=== PATIENT | male | born 1960 | race Caucasian/White ===

== ENCOUNTER → 2018-01-22 | Outpatient (CLI) | payer MEDICARE, MEDICAID ==
--- NOTE | 2018-01-22 15:45 | Diagnostic Imaging Report ---
Patient History: SOB and resp Ins. Technique: Two views of the chest. Comparison: 04/19/2008. FINDINGS: The lung volumes are large. No focal consolidation is seen. No large pleural effusion or pneumothorax is seen. The cardiomediastinal silhouette is normal in size and contour. No acute osseous abnormality is seen. There are degenerative changes in the left shoulder. IMPRESSION: Large lung volumes with no acute pulmonary abnormality seen. Dictated by: Dictated on workstation # [id number]
== END ==
LOC: RAD 13:03
PROVIDERS: ATTEND Family Medicine
DX: R06.02 Shortness of breath (principal)
CPT/HCPCS: 71046

== ENCOUNTER 2018-06-25 09:12 | Inpatient (IN) | payer MEDICARE, MEDICAID ==
[~2018-06-25] VITALS: Ht 175.3 cm; Wt 113.4 kg
[2018-06-25] VITALS (13 sets, daily range): BP systolic 85–152; BP diastolic 36–118
--- OUTSIDE RECORDS SUMMARY | 2018-06-25 09:16 | XMS REPORT | Continuity of Care Document ---
Author Organization Unknown Address Unknown Allergies Active Description Code Type Severity Reaction Onset Reported/Identified Relationship to Patient Clinical Status Yes CODEINE SULFATE UNKNOWN UNKNOWN Yes Codeine Drug Allergy 07/02/2011 Yes Codeine Drug Allergy N/A N/A 07/02/2011 Medications Medication Packaging Start Date Stop Date Route Dosage Sig COMBIVENT RESPIMAT MDI (COMBIVENT RESPIMAT) puff 01/22/2017 01/31/2017 TID&0600,1400,2200 ACETAMINOPHEN ORAL TABLET 325mg(Tylenol) MG 01/22/2017 02/01/2017 PRN EVERY 6 Hour POLYETHYLENE GLYCOL POWDER UD PWD (MIRALAX 17GM UNIT DOSE PAKS) gm 01/22/2017 02/21/2017 PRN Q3H IPRATROPIUM/ALBUTEROL INH SOLN (DUO-NEB INH SOLN) MLS 01/22/2017 01/29/2017 TID&0600,1100,1600,2100 HYDROCODONE/APAP 5MG/325MG TAB 5 MG/325MG (SY-TAB 5/325) TAB 01/22/2017 02/21/2017 PRN Q6H DIVALPROEX SPRINKLE CAP 125 MG (DEPAKOTE SPRINKLE) MG 01/22/2017 02/21/2017 PRN Q6H COMBIVENT RESPIMAT MDI (COMBIVENT RESPIMAT) puff 01/22/2017 02/21/2017 PRN QID ALUM/MAG/SIMETH 30CC LIQ (MYLANTA PLUS) cc 01/22/2017 02/21/2017 PRN Q4H MUPIROCIN OINT 2 % (BACTROBAN) Dose(s) 01/22/2017 02/21/2017 BID&0800,2000 GABAPENTIN CAP 100 MG (NEURONTIN) MG 01/22/2017 02/21/2017 TID&0800,1400,2000 BENZTROPINE TAB 0.5 MG (COGENTIN) MG 01/22/2017 02/21/2017 TID&0800,1400,2000 Artificial TEARS opht drops (TEARS for Dry Eyes) DROP 01/22/2017 02/01/2017 PRN Q2H LACTULOSE SYRUP LIQ 20 GM/30CC (CHRONULAC SYRUP) GM 01/22/2017 02/21/2017 BID&0800,2000 CLONAZEPAM TAB 1 MG (KLONOPIN) MG 01/22/2017 02/21/2017 BID&0800,2000 Risperidone oral Dissolvetab 3mg (Risperdal M) MG 01/22/2017 02/21/2017 BID&0800,2000 PROPRANOLOL TAB 10 MG (INDERAL) MG 01/22/2017 02/21/2017 TID&0800,1400,2000 MILK OF [place] ALONZOQ ml 01/22/2017 01/29/2017 PRN BID MELATONIN TAB 3 MG (MELATONIN) MG 01/22/2017 02/20/2017 QHS&2100 TRAZODONE TAB 50 MG (DESYREL) MG 02/21/2017 PRN QHS SENNA CONC/DOCUSATE TAB (SENOKOT S) TAB 01/22/2017 02/20/2017 QHS&2100 IPRATROPIUM/ALBUTEROL INH SOLN (DUO-NEB INH SOLN) MLS 01/23/2017 02/01/2017 TID&0630,1130,1630 ASA 81MG CHEWABLE TAB 81 MG (BABY ASPIRIN) MG 01/23/2017 02/21/2017 Daily&0900 NICOTINE PATCH PAT 14 MG (NICODERM) MG 01/23/2017 02/21/2017 Daily&0900 POLYETHYLENE GLYCOL POWDER UD PWD (MIRALAX 17GM UNIT DOSE PAKS) gm 01/23/2017 02/21/2017 Daily&0900 CYCLOBENZAPRINE TAB 10 MG (FLEXERIL) MG 01/23/2017 02/22/2017 PRN BID IPRATROPIUM/ALBUTEROL INH SOLN (DUO-NEB INH SOLN) MLS 01/23/2017 02/01/2017 TID&0600,1400,2200 OLANZAPINE DISSOLVABLE TAB 5 MG (ZYPREXA ZYDIS) MG 01/23/2017 02/22/2017 Q6H&0000,0600,1200,1800 OLANZAPINE IM VIAL INJ 10 MG/VIAL (ZYPREXA IM VIAL) MG 01/23/2017 02/22/2017 Q6H&0600,1200,1800,2359 BISACODYL SUPPOS SUP 10 MG (DULCOLAX SUPPOS) MG 01/25/2017 01/31/2017 PRN Daily OLANZAPINE DISSOLVABLE TAB 5 MG (ZYPREXA ZYDIS) MG 01/29/2017 02/08/2017 QID&0600,1200,1700,2200 IPRATROPIUM/ALBUTEROL INH SOLN (DUO-NEB INH SOLN) MLS 02/01/2017 02/08/2017 TID&0600,1100,1600,2100 Problems Date Dx Coded Attending Type Code Diagnosis Diagnosed By 07/14/2009 295.70 P SCHIZO AFFECTIVE 07/14/2009 SHENA HERNANDES DO 295.70 P SCHIZO AFFECTIVE 07/14/2009 295.70 P SCHIZO AFFECTIVE 07/14/2009 295.70 P SCHIZO AFFECTIVE 07/14/2009 295.70 P SCHIZO AFFECTIVE 07/14/2009 295.70 P SCHIZO AFFECTIVE 08/23/2009 295.10 P SCHIZO DISORG UNSPECIFIED 08/23/2009 V58.69 LONG-TERM ( CURRENT) USE OF OTHER MEDICATIONS 08/23/2009 SHENA HERNANDES DO 295.10 P SCHIZO DISORG UNSPECIFIED 08/23/2009 SHENA HERNANDES DO V58.69 LONG-TERM (CURRENT) USE OF OTHER MEDICATIONS 08/23/2009 295.10 P SCHIZO DISORG UNSPECIFIED 08/23/2009 V58.69 LONG-TERM ( CURRENT) USE OF OTHER MEDICATIONS 08/23/2009 295.10 P SCHIZO DISORG UNSPECIFIED 08/23/2009 V58.69 LONG-TERM ( CURRENT) USE OF OTHER MEDICATIONS 08/23/2009 295.10 P SCHIZO DISORG UNSPECIFIED 08/23/2009 V58.69 LONG-TERM ( CURRENT) USE OF OTHER MEDICATIONS 08/23/2009 295.10 P SCHIZO DISORG UNSPECIFIED 08/23/2009 V58.69 LONG-TERM ( CURRENT) USE OF OTHER MEDICATIONS 12/11/2009 296.40 MO BIPOLAR MANIC UNSPECIFIED 12/11/2009 SHENA HERNANDES DO 296.40 MO BIPOLAR MANIC UNSPECIFIED 12/11/2009 296.40 MO BIPOLAR MANIC UNSPECIFIED 12/11/2009 296.40 MO BIPOLAR MANIC UNSPECIFIED 12/11/2009 296.40 MO BIPOLAR MANIC UNSPECIFIED 12/11/2009 296.40 MO BIPOLAR MANIC UNSPECIFIED 08/30/2010 295.30 P SCHIZO PARANOID UNSPECIFIED 08/30/2010 SHENA HRENANDES DO 295.30 P SCHIZO PARANOID UNSPECIFIED 08/30/2010 295.30 P SCHIZO PARANOID UNSPECIFIED 08/30/2010 295.30 P SCHIZO PARANOID UNSPECIFIED 08/30/2010 295.30 P SCHIZO PARANOID UNSPECIFIED 08/30/2010 295.30 P SCHIZO PARANOID UNSPECIFIED 10/04/2010 295.60 P SCHIZO RESIDUAL UNSPECIFIED 10/04/2010 SHENA HERNANDES DO 295.60 P SCHIZO RESIDUAL UNSPECIFIED 10/04/2010 295.60 P SCHIZO RESIDUAL UNSPECIFIED 10/04/2010 295.60 P SCHIZO RESIDUAL UNSPECIFIED 10/04/2010 295.60 P SCHIZO RESIDUAL UNSPECIFIED 10/04/2010 295.60 P SCHIZO RESIDUAL UNSPECIFIED 11/13/2010 296.60 MO BIPOLAR I MIXED UNSPECIFIED 11/13/2010 SHENA HERNANDES DO 296.60 MO BIPOLAR I MIXED UNSPECIFIED 11/13/2010 296.60 MO BIPOLAR I MIXED UNSPECIFIED 11/13/2010 296.60 MO BIPOLAR I MIXED UNSPECIFIED 11/13/2010 296.60 MO BIPOLAR I MIXED UNSPECIFIED 11/13/2010 296.60 MO BIPOLAR I MIXED UNSPECIFIED 02/03/2017 MAURISIO KINSEY 295.60 02/03/2017 MAURISIO KINSEY 296.80 02/03/2017 MAURISIO KINSEY 300.00 02/03/2017 MAURISIO KINSEY 305.1 TOBACCO USE DISORDER 02/03/2017 MAURISIO KINSEY 401.0 MALIGNANT ESSENTIAL HYPERTENSION 02/03/2017 MAURISIO KINSEY 491.20 OBSTRUCTIVE CHRONIC BRONCHITIS, WITHOUT EXACERBATION 02/03/2017 MAURISIO KINSEY 564.00 02/03/2017 MAURISIO KINSEY 715.30 02/03/2017 MAURISIO KINSEY 781.0 ABNORMAL INVOLUNTARY MOVEMENTS 02/03/2017 MAURISIO KINSEY 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 02/03/2017 MAURISIO KINSEY F31.9 BIPOLAR DISORDER, UNSPECIFIED 02/03/2017 MAURISIO KINSEY F41.9 ANXIETY DISORDER, UNSPECIFIED 02/03/2017 MAURISIO KINSEY I10 ESSENTIAL (PRIMARY) HYPERTENSION 02/03/2017 MAURISIO KINSEY J44.9 CHRONIC OBSTRUCTIVE PULMONARY DISEASE, UNSPECIFIED 02/03/2017 MAURISIO KINSEY K59.09 OTHER CONSTIPATION 02/03/2017 MAURISIO KINSEY M19.90 UNSPECIFIED OSTEOARTHRITIS, UNSPECIFIED SITE 02/03/2017 MAURISIO KINSEY R25.1 TREMOR, UNSPECIFIED 02/03/2017 MAURISIO KINSEY Z72.0 TOBACCO USE 01/23/2018 GELLENDER DO, TANI Ley Ot R06.02 SHORTNESS OF BREATH 02/17/2018 GELLENDER DO, TANI Ley Ot R06.02 SHORTNESS OF BREATH 02/19/2018 GELLENDER DO, TANI Ley Ot R06.02 SHORTNESS OF BREATH Procedures Code Description [place] [address] EKG, TRACING (IN-HOUSE) 05/28/2012 Results Test Result Range Thyroid Stimulating Hormone - 01/23/17 05:10 TSH 1.40 mIU/mL 0.32-5.00 MRSA Screen - 01/23/17 05:10 FINAL CULTURE RESULTS MRSA Negative Nasal Culture Comprehensive Metabolic Panel - 01/24/17 07:44 Albumin 4.0 g/dL 3.6-5.1 ALP 93 U/L 35-130 ALT 16 U/L 6-45 Anion Gap 15 6-14 AST 31 U/L 2-40 BUN 16 mg/dL 5-25 Calcium 9.1 mg/dL 8.3-10.4 Chloride 106 mmol/L 95-114 CO2 23 mEq/L 22-33 Creat 1.06 mg/dL 0.50-1.50 eGFR 72 mL/min/1.73m2 >59 Globulin 3.5 g/dL 2.3-3.5 Glucose 198 mg/dL 70-110 Osmo 295 280-295 Potassium 4.3 mmol/L 3.5-5.3 Sodium 140 mmol/L 134-148 TBil 0.9 mg/dL 0.2-1.2 TP 7.5 g/dL 6.0-8.3 Urinalysis - 01/24/17 07:44 Icotest Negative Negative Urine Volume Urine Volume Sufficient (10mL) Urine Yeast No Yeast present Urine-Appearance Clear Clear Urine-Bacteria Negative Urine-Bilirubin 1+ Negative Urine-Blood Negative Negative Urine-Color Yellow Colorless-Lt. Yellow Urine-Glucose Negative Negative Urine-Ketones 1+ Negative Urine-Leukocytes Negative Negative Urine-Mucus 4+ Urine-Nitrite Negative Negative Urine-Other Urine Saved if Culture Needed (48hrs from time of collection) Urine-pH 5.5 5-8.5 Urine-Protein Negative Negative Urine-RBC Negative Urine-Specific [place] 1.025 1.000-1.030 Urine-WBC 0-2/HPF Urobilinogen 0.2 E.U./dL 0.2-1.0 Encounters ACCT No. Visit Date/Time Discharge Status Pt. Type Provider Facility Loc./Unit Complaint [id number] 05/28/2012 11:25:00 05/28/2012 23:59:59 CLS Outpatient [id number] 04/28/2012 14:24:00 04/28/2012 23:59:59 CLS Outpatient [id number] 04/16/2012 15:56:00 04/16/2012 23:59:59 CLS Outpatient [id number] 03/23/2012 12:24:00 03/23/2012 23:59:59 [place] [id number] 01/27/2012 13:57:00 01/27/2012 23:59:59 CLS Outpatient [id number] 05/28/2012 11:25:00 Document Registration [id number] 01/22/2017 12:00:00 02/03/2017 08:45:00 DIS Inpatient MAURISIO KINSEY [id number] 01/22/2017 14:17:48 Document Registration [id number] 01/22/2018 13:03:00 01/22/2018 23:59:59 CLS Outpatient TANI CRAFT DO [facility] RAD SOB [id number] 06/25/2018 09:12:00 ACT Emergency KIMBERLY RUBIO, MARIA LUZ Chavez [facility] ER CP;SOA
[2018-06-25] MEDS ORDERED: RT-ALBUTEROL/IPRATROPIUM 3 ML (DUONEB) VIAL ONE (09:25)
[2018-06-25] MEDS ORDERED: BENZ0.5T42 (09:27)
[2018-06-25] MEDS ORDERED: CLON1TAB13 (09:27)
[2018-06-25] MEDS ORDERED: CARI3CAP (09:27)
[2018-06-25 09:47] LABS: BASOPHILS % (AUTO) 0 % (0-10); EOSINOPHILS % (AUTO) 0 % (0-10); HEMATOCRIT 42 % (40-54); HEMOGLOBIN 14.4 G/DL (13.3-17.7); LYMPHOCYTES # (AUTO) 2.5 X 10^3 (1.0-4.0); LYMPHOCYTES % (AUTO) 17 % (12-44); MEAN CORPUSCULAR HEMOGLOBIN 33 PG (25-34); MEAN CORPUSCULAR HGB CONC 34 G/DL (32-36); MEAN CORPUSCULAR VOLUME 97 FL (80-99); MEAN PLATELET VOLUME 10.4 FL (7.4-10.4); MONOCYTES # (AUTO) 0.9 X 10^3 (0.0-1.0); MONOCYTES % (AUTO) 6 % (0-12); NEUTROPHILS # (AUTO) 11.5 X 10^3 (1.8-7.8); NEUTROPHILS % (AUTO) 77 % (42-75); PLATELET COUNT 125 10^3/uL (130-400); RED CELL DISTRIBUTION WIDTH 13.1 % (10.0-14.5); WHITE BLOOD COUNT 14.9 10^3/uL (4.3-11.0)
--- NOTE | 2018-06-25 10:01 | Diagnostic Imaging Report ---
INDICATION: Chest pain and fever Portable chest 9:50 AM Heart size and pulmonary vascularity are normal. Lungs are clear. There are no effusions or pneumothoraces. IMPRESSION: Negative chest Dictated by: Dictated on workstation # [id number]
[2018-06-25 10:02] LABS: INR 1.2 (0.8-1.4); PROTHROMBIN TIME PATIENT 15.4 SEC (12.2-14.7)
[2018-06-25] MEDS ORDERED: NS IV 1000 ML 1,000 ML ONE (10:03)
[2018-06-25 10:06] LABS: ALANINE AMINOTRANSFERASE 95 U/L (0-55); ALBUMIN 3.5 GM/DL (3.2-4.5); ALKALINE PHOSPHATASE 96 U/L (40-136); BILIRUBIN,TOTAL 1.3 MG/DL (0.1-1.0); BUN/CREATININE RATIO 13; CALCIUM 8.8 MG/DL (8.5-10.1); CARBON DIOXIDE 27 MMOL/L (21-32); CHLORIDE 103 MMOL/L (98-107); CREATININE SERUM 0.93 MG/DL (0.60-1.30); GFR ESTIMATED > 60; GLUCOSE 200 MG/DL (70-105); MAGNESIUM 1.9 MG/DL (1.8-2.4); POTASSIUM 3.7 MMOL/L (3.6-5.0); SODIUM 137 MMOL/L (135-145); TOTAL PROTEIN 6.8 GM/DL (6.4-8.2)
--- NOTE | 2018-06-25 10:08 | NUR ---
B/P 81/[address] LENZID
--- NOTE | 2018-06-25 10:18 | NUR ---
INFORMATION FAXED DR TALKED WITH [facility] WOULD LIKE OPERATIVE NOTE FROM
--- NOTE | 2018-06-25 10:19 | ED General ---
General Chief Complaint: Chest Pain Stated Complaint: CP;SOA Nursing Triage Note: TO ED PER EMS FROM [facility] STAFF REPORTED TO EMS THAT HE HAD A TEMP OF 101 THIS AM TYLENOL C/O CHEST PAIN. ON EMS ARRIVAL NO TEMP C/O CHEST PAIN RATE 7/10 1 NITRO GIVEN PAIN FREE AFTER FIRST. COUGH NOTED ON ADMIT. Nursing Sepsis Screen: No Definite Risk Source of Information: Patient, EMS, [facility] Records Exam Limitations: No Limitations History of Present Illness Date Seen by Provider: Jun 25, 2018 Time Seen by Provider: 09:12 Initial Comments This 57-year-old gentleman presents to the emergency room from the residential where he was found to have a temperature of 103 this morning, and he complains of chest pain. He received Tylenol 500 mg and repeat temperature for EMS was 98.6. EMS reports a moist cough, and residential staff state his cough was productive. A 12-lead EKG by EMS was negative for ischemia. Patient initially reported to his chest pain as 7/10. He states pain is worse with cough and deep breathing. Nitroglycerin was administered by EMS which improved his chest pain 2-3/10. He denies any present chest pain on my interview. The nitroglycerin dropped his systolic blood pressure to 97. No further nitroglycerin was given. EMS reports oxygen saturation was 88 percent on room air. 3 L by nasal cannula brought him up to 93-95%. Patient has a significant psychiatric history which presumably has led to his residential admission. He also has a guardian/conservator on file. Patient reports no appetite today and pain with urination. Patient has a flat affect and slurred speech which is his baseline status per residential staff. He does answer questions appropriately , although his speech is sometimes difficult to understand. Allergies and Home Medications Allergies Coded Allergies: codeine (Verified Allergy, Unknown, 06/25/18) Patient Home Medication List Home Medication List Reviewed: Yes Review of Systems Review of Systems Constitutional: see HPI EENTM: no symptoms reported Respiratory: see HPI Cardiovascular: see HPI Gastrointestinal: see HPI Genitourinary: see HPI Musculoskeletal: no symptoms reported Skin: no symptoms reported Psychiatric/Neurological: See HPI Hematologic/Lymphatic: No Symptoms Reported Immunological/Allergic: no symptoms reported Past Pgudcbc-Wbifne-Ybbxhy Hx Past Med/Social Hx: Reviewed Nursing Past Med/Soc Hx Patient Social History Alcohol Use: Denies Use Recreational Drug Use: No Smoking Status: Current Someday Smoker Type Used: Pipe Recent Foreign Travel: No Contact w/Someone Who Travel: No Recent Infectious Disease Expo: No Past Medical History Surgeries: No (not known) Respiratory: Yes COPD Cardiac: No Neurological: Yes (MUSCLE WEAKNESS ) Reproductive Disorders: No Gastrointestinal: No Musculoskeletal: Yes Arthritis Endocrine: No HEENT: No Cancer: No Psychosocial: Yes Bipolar, Schizophrenia, Depression Integumentary: No Physical Exam-Suspected Sepsis Physical Exam Vital Signs Vital Signs - First Documented 06/25/18 09:16 Temp 97.7 Pulse 79 Resp 18 B/P (MAP) 102/59 (73) Pulse Ox 95 O2 Delivery Nasal Cannula O2 Flow Rate 2.00 Capillary Refill : Less Than 3 Seconds Blood Pressure Mean: 73 Height, Weight, BMI Height: 5'9.00" Weight: 237lbs. oz. 107.966766af; BMI Method:Stated General Appearance: No Apparent Distress, WD/WN HEENT: PERRL/EOMI, Normal ENT Inspection Neck: Normal Inspection Respiratory: No Accessory Muscle Use, No Respiratory Distress, Decreased Breath Sounds, Wheezing (subtle) Cardiovascular: Regular Rate, Rhythm, No Edema, No Murmur Gastrointestinal: Normal Bowel Sounds, Non Tender, Soft Extremity: Normal Inspection, Non Tender, No Calf Tenderness, No Pedal Edema, Other (negative Semaj) Neurologic/Psychiatric: Alert, Motor Weakness (generalized), Other ( generalized weakness. Affect flat. Speech slurred. Answers questions appropriately) Skin: normal color, warm/dry Focused Exam Sepsis Stage: Severe Sepsis Possible Source: Genitouriary Lactate Level 06/25/18 09:30: Lactic Acid Level 1.66 Time of Focused Exam: 11:25 Respiratory: Lungs Clear, Decreased Breath Sounds Cardiovascular: Regular Rate, Rhythm, No Edema, No Murmur Capillary Refill: Less Than 3 Seconds Peripheral Pulses: 2+ Radial Pulses (R) Skin: normal color, warm/dry Lactic Acid Level Laboratory Tests Test 06/25/18 09:30 Lactic Acid Level 1.66 MMOL/L (0.50-2.00) Within 3hrs of presentation: Admin fluids, Admin 30ml/kg IBW due to BMI>30, Admin ABX, Blood cultures prior to ABX's, Focus exam, Lactate level Progress/Results/Core Measures Suspected Sepsis Recent Fever Within 48 Hours: No Infection Criteria Present: None New/Unexplained Altered Menta: No Sepsis Screen: No Definite Risk SIRS Temperature:97.7 Pulse: 79 Respiratory Rate: 18 Laboratory Tests 06/25/18 09:30: White Blood Count 14.9H Blood Pressure 102 /59 Mean: 73 06/25/18 09:30: Lactic Acid Level 1.66 Laboratory Tests 06/25/18 09:30: Creatinine 0.93, INR Comment 1.2, Platelet Count 125L, Total Bilirubin 1.3H Results/Orders Lab Results Laboratory Tests Test 06/25/18 09:30 06/25/18 10:42 Range/Units White Blood Count 14.9 H 4.3-11.0 10^3/uL Red Blood Count 4.35 4.35-5.85 10^6/uL Hemoglobin 14.4 13.3-17.7 G/DL Hematocrit 42 40-54 % Mean Corpuscular Volume 97 80-99 FL Mean Corpuscular Hemoglobin 33 25-34 PG Mean Corpuscular Hemoglobin Concent 34 32-36 G/DL Red Cell Distribution Width 13.1 10.0-14.5 % Platelet Count 125 L 130-400 10^3/uL Mean Platelet Volume 10.4 7.4-10.4 FL Neutrophils (%) (Auto) 77 H 42-75 % Lymphocytes (%) (Auto) 17 12-44 % Monocytes (%) (Auto) 6 0-12 % Eosinophils (%) (Auto) 0 0-10 % Basophils (%) (Auto) 0 0-10 % Neutrophils # (Auto) 11.5 H 1.8-7.8 X 10^3 Lymphocytes # (Auto) 2.5 1.0-4.0 X 10^3 Monocytes # (Auto) 0.9 0.0-1.0 X 10^3 Eosinophils # (Auto) 0.0 0.0-0.3 10^3/uL Basophils # (Auto) 0.0 0.0-0.1 10^3/uL Neutrophils % (Manual) 80 % Lymphocytes % (Manual) 13 % Monocytes % (Manual) 7 % Blood Morphology Comment NORMAL Prothrombin Time 15.4 H 12.2-14.7 SEC INR Comment 1.2 0.8-1.4 Activated Partial Thromboplast Time 31 24-35 SEC Sodium Level 137 135-145 MMOL/L Potassium Level 3.7 3.6-5.0 MMOL/L Chloride Level 103 98-107 MMOL/L Carbon Dioxide Level 27 21-32 MMOL/L Anion Gap 7 5-14 MMOL/L Blood Urea Nitrogen 12 7-18 MG/DL Creatinine 0.93 0.60-1.30 MG/DL Estimat Glomerular Filtration Rate > 60 BUN/Creatinine Ratio 13 Glucose Level 200 H 70-105 MG/DL Lactic Acid Level 1.66 0.50-2.00 MMOL/L Calcium Level 8.8 8.5-10.1 MG/DL Corrected Calcium 9.2 8.5-10.1 MG/DL Magnesium Level 1.9 1.8-2.4 MG/DL Total Bilirubin 1.3 H 0.1-1.0 MG/DL Aspartate Amino Transf (AST/SGOT) 50 H 5-34 U/L Alanine Aminotransferase (ALT/SGPT) 95 H 0-55 U/L Alkaline Phosphatase 96 40-136 U/L Myoglobin 79.1 10.0-92.0 NG/ML Troponin I < 0.028 <0.028 NG/ML C-Reactive Protein High Sensitivity 2.54 H 0.00-0.50 MG/DL B-Type Natriuretic Peptide 22.6 <100.0 PG/ML Total Protein 6.8 6.4-8.2 GM/DL Albumin 3.5 3.2-4.5 GM/DL Urine Color GLORIA H Urine Clarity CLEAR Urine pH 7 5-9 Urine Specific [place] 1.010 L 1.016-1.022 Urine Protein 2+ H NEGATIVE Urine Glucose (UA) NEGATIVE NEGATIVE Urine Ketones NEGATIVE NEGATIVE Urine Nitrite POSITIVE H NEGATIVE Urine Bilirubin NEGATIVE NEGATIVE Urine Urobilinogen 8 H NORMAL MG/DL Urine Leukocyte Esterase 3+ H NEGATIVE Urine RBC (Auto) 5+ H NEGATIVE Urine RBC 50-100 H /HPF Urine WBC 25-50 H /HPF Urine Squamous Epithelial Cells NONE /HPF Urine Crystals NONE /LPF Urine Bacteria LARGE H /HPF Urine Casts NONE /LPF Urine Mucus NEGATIVE /LPF Urine Culture Indicated CULTURE PENDING Micro Results Microbiology 06/25/18 Influenza Types A,B Antigen (GADIEL) - Final, Complete My Orders Orders - MARIA LUZ HARRIS MD Albuterol/Ipra Inhalation Soln (Duoneb I (06/25/18 09:25) Cbc With Automated Diff (06/25/18) Magnesium (06/25/18) Chest 1 View, Ap/Pa Only (06/25/18) Ekg Tracing (06/25/18) Cardiac Profile 1 (06/25/18) Comprehensive Metabolic Panel (06/25/18) Myoglobin Serum (06/25/18) Protime With Inr (06/25/18) Partial Thromboplastin Time (06/25/18) O2 (06/25/18) Monitor-Rhythm Ecg Trace Only (06/25/18) Lipid Panel (06/26/18 06:00) Ed Iv/Invasive Line Start (06/25/18) Blood Culture (06/25/18) Sputum Culture (06/25/18) Urinalysis (06/25/18) Urine Culture (06/25/18) Ed Iv/Invasive Line Start (06/25/18) Vital Signs Adult Sepsis Patie Q15M (06/25/18) Remove Rings In Anticipation O (06/25/18) Lactic Acid Analyzer (06/25/18) Influenza A And B Antigens (06/25/18) BNP (06/25/18) Hs C Reactive Protein (06/25/18) Manual Differential (06/25/18 09:30) Ns Iv 1000 Ml (Sodium Chloride 0.9%) (06/25/18 10:03) Piperacillin/Tazobactam (Bulk) (Zosyn In (06/25/18 10:45) Ed Iv/Invasive Line Start (06/25/18 10:38) Ns Iv 500 Ml (Sodium Chloride 0.9%) (06/25/18 10:38) Ns Iv 1000 Ml (Sodium Chloride 0.9%) (06/25/18 10:38) Medications Given in ED Current Medications Medications Dose Ordered Sig/Jose M Route Start Time Stop Time Status Last Admin Dose Admin Albuterol/ Ipratropium 3 ml STK-MED ONCE .ROUTE 06/25/18:25 06/25/18:28 DC 06/25/18 09:32 3 ML Piperacillin Sod/ Tazobactam Sod 4.5 gm/Sodium Chloride 120 ml @ 240 mls/hr ONCE ONCE IV 06/25/18 10:45 06/25/18 11:14 DC 06/25/18 11:13 240 MLS/HR Sodium Chloride 500 ml @ 0 mls/hr Q0M ONCE IV 06/25/18 10:38 06/25/18 10:48 DC 06/25/18 11:22 500 MLS/HR Sodium Chloride 1,000 ml @ 0 mls/hr Q0M ONCE IV 06/25/18 10:38 06/25/18 10:48 DC 06/25/18 11:10 1,000 MLS/HR Sodium Chloride 1,000 ml @ ud STK-MED ONCE .ROUTE 06/25/18 10:03 06/25/18 10:07 DC 06/25/18 10:08 1,000 MLS/HR Vital Signs/I&O 06/25/18 06/25/18 09:16 09:32 Temp 97.7 Pulse 79 Resp 18 B/P (MAP) 102/59 (73) Pulse Ox 95 93 O2 Delivery Nasal Cannula Nasal Cannula O2 Flow Rate 2.00 2.00 Capillary Refill : Less Than 3 Seconds Blood Pressure Mean: 73 Progress Note : Time: 11:32 Progress Note Septic workup and chest pain protocol were pursued. Influenza screen was negative. Chest x-ray was clear. EKG demonstrated no ischemia. Aspirin had been administered by EMS. They also administered nitroglycerin which dropped his blood pressure down to 97. No further nitroglycerin was given. After multiple normal blood pressures, patient developed a brief hypotension with a couple of blood pressure measurements in the 80s. This was promptly corrected with IV hydration. Due to hypoxia and hypotension, severe sepsis was diagnosed. Source of infection is urinary tract infection. Antibiotics therapy with Zosyn was started. Zosyn was selected due to risk for resistant or complicated infection as a residential patient. Troponin was negative. Chest pain was discussed with Dr. Ballesteros. He requested an echocardiogram. Sepsis was discussed with Dr. Craft and Dr. Pardo who agree with ICU admission. Patient received 2500 mL normal saline to complete a 30 ML per kilogram bolus for severe sepsis. [place] body weight was used due to obesity. Patient has been stable since starting IV fluids. A DuoNeb treatment was administered due to diminished breath sounds with slight wheezing. Patient does have a history of COPD. ECG Initial ECG Impression Date: Jun 25, 2018 Initial ECG Impression Time: 09:13 Initial ECG Rate: 78 Initial ECG Rhythm: Normal Sinus Comment Sinus rhythm with no ST elevation or depression. No abnormal intervals or axis deviation. Diagnostic Imaging Diagonstic Imaging: Xray Plain Films/CT/US/NM/MRI: chest Comments Chest x-ray viewed by me and report reviewed. See report below: NAME: PENELOPE COLLINS [facility] REC#: [id number] PT STATUS: REG ER : 1960 PHYSICIAN: MARIA LUZ HARRIS MD ADMIT DATE: 06/25/18/ER Draft Date of Exam:06/25/18 CHEST 1 VIEW, AP/PA ONLY INDICATION: Chest pain and fever Portable chest 9:50 AM Heart size and pulmonary vascularity are normal. Lungs are clear. There are no effusions or pneumothoraces. IMPRESSION: Negative chest Dictated on workstation # [id number] Dict: 06/25/18 0958 Trans: 06/25/18 1000 PHUONG [id number] Interpreted by: JOSEFINA MARTINEZ MD Departure Communication (Admissions) Time/Spoke to Admitting Phy: 11:15 Dr. Craft 11:12 Dr. Pardo 11:20 Dr. Ballesteros Impression Primary Impression: Severe sepsis Additional Impressions: Urinary tract infection Qualified Codes: N39.0 - Urinary tract infection, site not specified Chest pain Qualified Codes: R07.9 - Chest pain, unspecified Hypoxia COPD exacerbation Disposition: ADMITTED INPATIENT Condition: Improved Admissions Decision to Admit Reason: Admit from ER (General) Decision to Admit/Date: Jun 25, 2018 Time/Decision to Admit Time: 09:30 Departure-Patient Inst. Referrals: TANI CRAFT DO (PCP/Family) Primary Care Physician MARIA LUZ HARRIS MD Jun 25, 2018 10:19
[2018-06-25] MEDS ORDERED: NS IV 1000 ML 1,000 ML IV ONE (10:38)
[2018-06-25] MEDS ORDERED: NS IV 500 ML 500 ML IV ONE (10:38)
[2018-06-25 10:45] LABS: BILIRUBIN,URINE NEGATIVE (NEGATIVE); CLARITY,URINE CLEAR; COLOR,URINE AMBER; GLUCOSE, URINE (UA) NEGATIVE (NEGATIVE); KETONES,URINE NEGATIVE (NEGATIVE); LEUKOCYTE ESTERASE ,URINE 3+ (NEGATIVE); NITRITE,URINE POSITIVE (NEGATIVE); PH,URINE 7 (5-9); PROTEIN,URINE 2+ (NEGATIVE); UROBILINOGEN,URINE 8 MG/DL (NORMAL)
[2018-06-25] MEDS ORDERED: PIPERACILLIN/TAZOBACTAM (BULK) 4.5 GM in NS (IVPB) 100 ML IV ONE (10:45)
[2018-06-25 10:56] LABS: LYMPHOCYTES % (MANUAL) 13 %; MONOCYTES % (MANUAL) 7 %; NEUTROPHILS % (MANUAL) 80 %
[2018-06-25 10:57] LABS: RBC MORPH NORMAL
[2018-06-25 11:00] LABS: BACTERIA,URINE LARGE /HPF; RBC,URINE 50-100 /HPF; WBC,URINE 25-50 /HPF
--- NOTE | 2018-06-25 11:42 | NUR ---
JAIL MED LIST PLACED ON CHART.
--- OUTSIDE RECORDS SUMMARY | 2018-06-25 11:43 | XMS REPORT | Continuity of Care Document ---
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 08/30/2010 [...] I MIXED UNSPECIFIED 11/13/2010 SHENA HERNANDES DO F 296.60 MO BIPOLAR I MIXED UNSPECIFIED 11/13/2010 [...] Procedures Code [place] [id number] EKG, TRACING (IN-HOUSE) 05/28/2012 Results Test Result [...] 5-8.5 Urine-Protein Negative Negative Urine-RBC Negative Urine-Specific Union 1.025 1.000-1.030 Urine-WBC 0-2/HPF Urobilinogen 0.2 E.U./dL 0.2-1.0 Influenza virus A and B antigen detection - 06/25/18 09:20 FLU RESULT NEGATIVE FOR INFLUENZA A AND B ANTIGENS BY [facility] Complete blood count (CBC) with automated white blood cell (WBC) differential - 06/25/18 09:30 Blood leukocytes automated count (number/volume) 14.9 10*3/uL 4.3-11.0 Blood erythrocytes automated count (number/volume) 4.35 10*6/uL 4.35-5.85 Venous blood hemoglobin measurement (mass/volume) 14.4 g/dL 13.3-17.7 Blood hematocrit (volume fraction) 42 % 40-54 Automated erythrocyte mean corpuscular volume 97 [foz_us] 80-99 Automated erythrocyte mean corpuscular hemoglobin (mass per erythrocyte) 33 pg 25-34 Automated erythrocyte mean corpuscular hemoglobin concentration measurement ( mass/volume) 34 g/dL 32-36 Automated erythrocyte distribution width ratio 13.1 % 10.0-14.5 Automated blood platelet count (count/volume) 125 10*3/uL 130-400 Automated blood platelet mean volume measurement 10.4 [foz_us] 7.4-10.4 Automated blood neutrophils/100 leukocytes 77 % 42-75 Automated blood lymphocytes/100 leukocytes 17 % 12-44 Blood monocytes/100 leukocytes 6 % 0-12 Automated blood eosinophils/100 leukocytes 0 % 0-10 Automated blood basophils/100 leukocytes 0 % 0-10 Blood neutrophils automated count (number/volume) 11.5 10*3 1.8-7.8 Blood lymphocytes automated count (number/volume) 2.5 10*3 1.0-4.0 Blood monocytes automated count (number/volume) 0.9 10*3 0.0-1.0 Automated eosinophil count 0.0 10*3/uL 0.0-0.3 Automated blood basophil count (count/volume) 0.0 10*3/uL 0.0-0.1 Blood lactic acid measurement (moles/volume) - 06/25/18 09:30 Blood lactic acid measurement (moles/volume) 1.66 mmol/L 0.50-2.00 PT panel in platelet poor plasma by coagulation assay - 06/25/18 09:30 Prothrombin time (PT) in platelet poor plasma by coagulation assay 15.4 s 12.2-14.7 INR in platelet poor plasma or blood by coagulation assay 1.2 0.8-1.4 Activated partial thromboplastin time (aPTT) in platelet poor plasma bycoagulation assay - 06/25/18 09:30 Activated partial thromboplastin time (aPTT) in platelet poor plasma bycoagulation assay 31 s 24-35 Serum or plasma C reactive protein measurement (mass/volume) - 06/25/18 09:30 Serum or plasma C reactive protein measurement (mass/volume) 2.54 mg /dL 0.00-0.50 Comprehensive metabolic panel - 06/25/18 09:30 Serum or plasma sodium measurement (moles/volume) 137 mmol/L 135-145 Serum or plasma potassium measurement (moles/volume) 3.7 mmol/L 3.6-5.0 Serum or plasma chloride measurement (moles/volume) 103 mmol/L 98-107 Carbon dioxide 27 mmol/L 21-32 Serum or plasma anion gap determination (moles/volume) 7 mmol/L 5-14 Serum or plasma urea nitrogen measurement (mass/volume) 12 mg/dL 7-18 Serum or plasma creatinine measurement (mass/volume) 0.93 mg/dL 0.60-1.30 Serum or plasma urea nitrogen/creatinine mass ratio 13 NRG Serum or plasma creatinine measurement with calculation of estimated glomerular filtration rate > NRG Serum or plasma glucose measurement (mass/volume) 200 mg/dL 70-105 Serum or plasma calcium measurement (mass/volume) 8.8 mg/dL 8.5-10.1 Serum or plasma total bilirubin measurement (mass/volume) 1.3 mg/dL 0.1-1.0 Serum or plasma alkaline phosphatase measurement (enzymatic activity/volume) 96 U/L 40-136 Serum or plasma aspartate aminotransferase measurement (enzymatic activity/ volume) 50 U/L 5-34 Serum or plasma alanine aminotransferase measurement (enzymatic activity/volume ) 95 U/L 0-55 Serum or plasma protein measurement (mass/volume) 6.8 g/dL 6.4-8.2 Serum or plasma albumin measurement (mass/volume) 3.5 g/dL 3.2-4.5 CALCIUM CORRECTED 9.2 mg/dL 8.5-10.1 Magnesium - 06/25/18 09:30 Magnesium 1.9 mg/dL 1.8-2.4 Serum or plasma troponin i.cardiac measurement (mass/volume) - 06/25/18 09:30 Serum or plasma troponin i.cardiac measurement (mass/volume) < ng/ mL <0.028 Myoglobin, serum - 06/25/18 09:30 Myoglobin, serum 79.1 ng/mL 10.0-92.0 Blood manual differential performed detection - 06/25/18 09:30 Blood monocytes/100 leukocytes 7 % NRG Manual blood segmented neutrophils/100 leukocytes 80 % NRG Manual blood lymphocytes/100 leukocytes 13 % NRG Blood erythrocyte morphology finding identification NORMAL NRG Serum or plasma lithium measurement (moles/volume) - 06/25/18 09:30 BNP level 22.6 pg/mL <100.0 Complete urinalysis with reflex to culture - 06/25/18 10:42 Urine color determination GLORIA NRG Urine clarity determination CLEAR NRG Urine pH measurement by test strip 7 5-9 Specific gravity of urine by test strip 1.010 1.016- 1.022 Urine protein assay by test strip, semi-quantitative 2+ NEGATIVE Urine glucose detection by automated test strip NEGATIVE NEGATIVE Erythrocytes detection in urine sediment by light microscopy 5+ NEGATIVE Urine ketones detection by automated test strip NEGATIVE NEGATIVE Urine nitrite detection by test strip POSITIVE NEGATIVE Urine total bilirubin detection by test strip NEGATIVE NEGATIVE Urine urobilinogen measurement by automated test strip (mass/volume) 8 mg/dL NORMAL Urine leukocyte esterase detection by dipstick 3+ NEGATIVE Automated urine sediment erythrocyte count by microscopy (number/high power field) [HPF] NRG Automated urine sediment leukocyte count by microscopy (number/high power field ) [HPF] NRG Bacteria detection in urine sediment by light microscopy LARGE NRG Squamous epithelial cells detection in urine sediment by light microscopy NONE NRG Crystals detection in urine sediment by light microscopy NONE NRG Casts detection in urine sediment by light microscopy NONE NRG Mucus detection in urine sediment by light microscopy NEGATIVE NRG Complete urinalysis with reflex to culture CULTURE PENDING NRG Encounters ACCT No. Visit Date/Time Discharge Status Pt. Type Provider Facility Loc./Unit Complaint [id number] 05/28/2012 11:25:00 05/28/2012 23:59:59 CLS Outpatient [id number] 04/28/2012 14:24:00 04/28/2012 23:59:59 CLS Outpatient [id number] 04/16/2012 15:56:00 04/16/2012 23:59:59 CLS Outpatient [id number] 03/23/2012 12:24:00 03/23/2012 23:59:59 [place] [id number] 01/27/2012 13:57:00 01/27/2012 23:59:59 CLS Outpatient [id number] 05/28/2012 11:25:00 Document Registration [id number] 01/22/2017 12:00:00 02/03/2017 08:45:00 DIS Inpatient TIOMAURISIO [id number] 01/22/2017 14:17:48 Document Registration [id number] 01/22/2018 13:03:00 01/22/2018 23:59:59 CLS Outpatient TANI CRAFT DO [facility] RAD SOB [id number] 06/25/2018 11:39:00 ACT Inpatient TANI CRAFT DO [facility] ICU SEVERE SEPSIS,UTI,CHEST PAIN, HYPOXIA,COPD EXAC
--- NOTE | 2018-06-25 12:16 | NUR ---
RETIREMENT CALLED THEY DID INFORM KATHY
--- NOTE | 2018-06-25 12:31 | History & Physicial ---
History of Present Illness History of Present Illness Reason for visit/HPI Skin resident of medical [place] [facility] [place]. Ration them senior living. Patient had elevated temperature of 101 and chest pain. Patient has EPS. Patient has a history of COPD and psychiatric problems. Patient has shaking with his hands. Patient has UTI. Patient hypotension. Patient meets criteria for sepsis.. Patient had chest pain in the middle of his chest Date of Admission Jun 25, 2018 at 11:39 Time Seen by a Provider: 12:25 I consulted on this patient on 06/25/18 12:25 Attending Physician Mikie Craft DO Admitting Physician Mikie Craft DO Consult Allergies and Home Medications Allergies Coded Allergies: codeine (Verified Allergy, Unknown, 06/25/18) Patient Home Medication List Home Medication List Reviewed: No Past Aoseckv-Xdgxcf-Criisa Hx Patient Social History Employed/Student: unemployed Alcohol Use: Denies Use Recreational Drug Use: No Smoking Status: Current Someday Smoker Type Used: Pipe Recent Foreign Travel: No Contact w/other who traveled: No Recent Infectious Disease Expo: No Surgeries No (not known) Respiratory Yes Cardiovascular No Neurological Yes (MUSCLE WEAKNESS ) Reproductive System Hx Reproductive Disorders: No Gastrointestinal No Musculoskeletal Yes Arthritis Endocrine History of Endocrine Disorders: No HEENT History of HEENT Disorders: No Cancer No Psychosocial History of Psychiatric Problem: Yes Behavioral Health Disorders: Bipolar, Schizophrenia, Depression Integumentary History of Skin or Integumenta: No Review of Systems Constitutional: no symptoms reported EENTM: no symptoms reported Respiratory: other (Hypoxia) Cardiovascular: chest pain Gastrointestinal: no symptoms reported Genitourinary: no symptoms reported Physical Exam Vital Signs Vital Signs - First Documented 06/25/18 09:16 Temp 97.7 Pulse 79 Resp 18 B/P (MAP) 102/59 (73) Pulse Ox 95 O2 Delivery Nasal Cannula O2 Flow Rate 2.00 Capillary Refill : Less Than 3 Seconds Height, Weight, BMI Height: 5'9.00" Weight: 237lbs. oz. 107.459986jk; BMI Method:Stated General Appearance: No Apparent Distress, WD/WN Eyes: Bilateral Eye Normal Inspection HEENT: Normal ENT Inspection Neck: Normal Inspection, Non Tender Respiratory: No Accessory Muscle Use, No Respiratory Distress, Decreased Breath Sounds Cardiovascular: Regular Rate, Rhythm, No Murmur Gastrointestinal: Non Tender, Soft Assessment/Plan Assessment and Plan Febrile. UTI. Chest pain. Thrombocytopenia. Sepsis. Hypotension. Psychiatric problem. EPS extrapyramidal symptoms Admission Diagnosis Admission Status: Inpatient Order (span 2 midnights) Reason for Inpatient Admission: Chest pain. UTI. COPD. EPS. Psychiatric history Clinical Quality Measures AMI/AHF: ASA po Prior to arrival: Yes (BY EMS) MIKIE CRAFT DO Jun 25, 2018 12:31
[2018-06-25] MEDS ORDERED: CATHETER FLUSH 10 ML SYR IV PRN (12:45)
[2018-06-25] MEDS ORDERED: EPINEPHrine 1 MG INJECTION 2 MG in NS (IVPB) 250 ML IV SCH (12:45)
[2018-06-25] MEDS ORDERED: ONDANSETRON 4 MG/2 ML (SDV) Z0FRAN IV PRN (12:45)
[2018-06-25] MEDS ORDERED: NS IV ONE (12:45)
[2018-06-25] MEDS ORDERED: ACETAMINOPHEN 650 MG SUPP (TYLENOL) PR PRN (12:45)
[2018-06-25] MEDS: NS IV 1000 ML 1,000 ML IV SCH ×2 (12:59→21:40)
[2018-06-25] MEDS ORDERED: ASPI-983 PO (13:07)
[2018-06-25] MEDS ORDERED: MAGN400O7 PO (13:07)
[2018-06-25] MEDS ORDERED: MELA10CA2 PO (13:07)
[2018-06-25] MEDS ORDERED: PROP20TA5 PO (13:07)
[2018-06-25] MEDS ORDERED: ACET-2267 PO (13:07)
[2018-06-25] MEDS ORDERED: IPRA4AER IH ×2 (13:07)
[2018-06-25] MEDS ORDERED: GUAI5SYR PO (13:07)
[2018-06-25] MEDS ORDERED: DEXT15DR23 OU (13:07)
[2018-06-25] MEDS ORDERED: CARI3CAP PO (13:07)
[2018-06-25] MEDS ORDERED: CLON0.5T13 PO (13:07)
[2018-06-25] MEDS ORDERED: BENZ0.5T42 PO (13:07)
[2018-06-25] MEDS ORDERED: OLAN5TAB3 PO (13:07)
[2018-06-25] MEDS ORDERED: TR1C15 TP (13:07)
[2018-06-25] MEDS ORDERED: SENN-141 PO (13:07)
[2018-06-25] MEDS ORDERED: POLY17PO6 PO (13:07)
[2018-06-25] MEDS ORDERED: IPRA3AMP31 NEB (13:07)
[2018-06-25] MEDS ORDERED: IPRA3AMP31 IH (13:07)
--- NOTE | 2018-06-25 13:17 | NUR ---
UPDATED MED REC WITH [facility]
[2018-06-25] MEDS ORDERED: ENOXAPARIN 40 MG/0.4 ML (LOVENOX) SYR SC SCH (14:00)
[2018-06-25] MEDS: NOREPINEPHRINE 4 MG in NS (IVPB) 250 ML IV SCH ×2 (14:14→22:56)
--- NOTE | 2018-06-25 15:39 | Pulmonary Consultation ---
History of Present Illness History of Present Illness Date of Consultation 06/25/18 15:34 Time Seen by Provider: 08:38 Date of Admission History of Present Illness 57-year-old with hx of COPD presents [facility] the ER from the [facility] where he was found to be febrile and complained of chest pain with coughing. The patient is been having productive cough. He denied any shortness of breath however he was found to be hypoxic on admission with oxygen saturation of 88 percent on room air. He also has significant psychiatric history and has a guardian who makes decision. He was found to have severe sepsis likely from UTI. He was treated appropriately with severe sepsis protocol. No history of diabetes, however likely history of active smoking in the past. History is limited. Allergies and Home Medications Allergies Coded Allergies: codeine (Verified Allergy, Unknown, 06/25/18) Home Medications Acetaminophen 500 Mg Tablet, 500 MG PO DAILY PRN for PAIN-MILD, (Reported) Albuterol/Ipratropium 4 Gm Aero, 2 PUFF IH Q6H PRN for SHORTNESS OF BREATH, ( Reported) Albuterol/Ipratropium 4 Gm Aero, 2 PUFF IH TID, (Reported) Aspirin 81 Mg Tablet.dr, 81 MG PO DAILY, (Reported) Benztropine Mesylate 0.5 Mg Tablet, 0.5 MG PO TID, (Reported) Cariprazine Hydrochloride 3 Mg Capsule, 3 MG PO DAILY, (Reported) Clonazepam 0.5 Mg Tablet, 0.5 MG PO BID, (Reported) Dextran 70/Hypromellose 15 Ml Drops, 2 DROPS OU Q2H PRN for DRY EYES, (Reported) Guaifenesin/Dextromethorphan 5 Ml Syrup, 30 ML PO Q8H PRN for CONGESTION, ( Reported) Ipratropium/Albuterol Sulfate 3 Ml Ampul.neb, 3 ML IH Q6H PRN for SHORTNESS OF BREATH, (Reported) Ipratropium/Albuterol Sulfate 3 Ml Ampul.neb, 3 ML NEB TID, (Reported) Magnesium Hydroxide 400 Mg/5 Ml Oral.susp, 30 ML PO DAILY PRN for CONSTIPATION- 7TH LINE, (Reported) Melatonin 10 Mg Capsule, 10 MG PO HS, (Reported) Olanzapine 5 Mg Tablet, 5 MG PO QID, (Reported) Polyethylene Glycol 3350 17 Gm Powd.pack, 17 GM PO DAILY, (Reported) Propranolol HCl 20 Mg Tablet, 20 MG PO TID, (Reported) HOLD FOR SBP <100 Sennosides 8.6 Mg Tablet, 8.6 MG PO HS, (Reported) Triamcinolone Acet 15 Gm Cr, TP Q12H PRN for ITCHING, (Reported) Past Xpdteym-Yuarxk-Ecyxwt Hx Past Med/Social Hx: Reviewed Nursing Past Med/Soc Hx Patient Social History Alcohol Use: Denies Use Recreational Drug Use: No Smoking Status: Current Someday Smoker Type Used: Pipe Recent Foreign Travel: No Contact w/Someone Who Travel: No Recent Infectious Disease Expo: No Immunizations Up To Date Date of Pneumonia Vaccine: Dec 25, 2016 Past Medical History Surgeries: No (not known) Respiratory: Yes COPD Cardiac: No Neurological: Yes (MUSCLE WEAKNESS ) Reproductive Disorders: No Gastrointestinal: No Musculoskeletal: Yes Arthritis Endocrine: No HEENT: No Cancer: No Psychosocial: Yes Bipolar, Schizophrenia, Depression Integumentary: No Review of Systems Time Seen by Provider: 08:42 Sepsis Event Evaluation Height, Weight, BMI Height: 5'9.00" Weight: 237lbs. 0.0oz. 107.878186hs; 35.0 BMI Method:Stated Exam Exam Vital Signs Date Time Temp Pulse Resp B/P (MAP) Pulse Ox O2 Delivery O2 Flow Rate FiO2 06/25/18 15:00 77 27 130/71 (90) 96 Nasal Cannula 2.00 06/25/18 14:15 72 6 132/78 (96) 96 Nasal Cannula 2.00 06/25/18 14:00 70 138/118 (125) 96 Nasal Cannula 2.00 06/25/18 13:32 97 Room Air 06/25/18 13:00 71 23 110/97 (101) 96 Nasal Cannula 2.00 06/25/18 13:00 69 06/25/18 12:45 74 17 117/81 (93) 95 Nasal Cannula 2.00 06/25/18 12:30 75 23 112/77 (89) 96 Nasal Cannula 2.00 06/25/18 12:15 75 19 85/71 (76) 96 Nasal Cannula 2.00 06/25/18 12:14 75 06/25/18 12:02 100.3 72 26 85/61 (69) 96 Nasal Cannula 2.00 06/25/18 11:51 68 18 113/72 (86) 95 Nasal Cannula 2.00 06/25/18 09:32 93 Nasal Cannula 2.00 06/25/18 09:16 97.7 79 18 102/59 (73) 95 Nasal Cannula 2.00 Height & Weight Height: 5'9.00" Weight: 237lbs. 0.0oz. 107.323752dw; 35.0 BMI Method:Stated General Appearance: No Apparent Distress, WD/WN HEENT: Normal ENT Inspection Neck: Normal Inspection, Non Tender Respiratory: No Accessory Muscle Use, No Respiratory Distress, Decreased Breath Sounds Cardiovascular: Regular Rate, Rhythm, No Murmur Capillary Refill: Less Than 3 Seconds Peripheral Pulses: 2+ Radial Pulses (R) Extremity: Normal Inspection, Non Tender, No Calf Tenderness, No Pedal Edema, Other (negative Semaj) Neurologic/Psychiatric: Alert, Motor Weakness (generalized), Other ( generalized weakness. Affect flat. Speech slurred. Answers questions appropriately) Skin: Normal Color, Warm/Dry Lymphatic: No Adenopathy Results Lab Laboratory Tests 06/25/18 09:30 Assessment/Plan Assessment/Plan Severe sepsis -pt is on sepsis protocol UTI -Continue Abx COPDAE with hypoxia -SVNS -Solumedrol -Oxygen and monitor TASH JACKSON DO Jun 25, 2018 15:39
[2018-06-25] MEDS: PIPERACILLIN/TAZO 4.5 GM/NS 100 ML IV SCH ×2 (17:42)
--- NOTE | 2018-06-25 18:25 | Consultation-Cardiology ---
HPI-Cardiology Cardiology Consultation: Date of Consultation 06/25/18 Date of Admission Attending Physician Mikie Gross DO Admitting Physician Mikie Gross DO Consulting Physician Velma BALLESTEROS MD HPI: Time Seen by a Provider: 17:00 Chief Complaint: Severe sepsis, chest pain This is a 57-year-old gentleman who [facility] was found to be febrile and complained of chest pain with coughing. The patient is been having productive cough. Cardiology was consulted due to chest pain. The patient denied any chest pain on my repeated asking. He also denied any significant shortness of breath. However he was found to be hypoxic on admission with oxygen saturation of 88 percent on room air. He does have history of COPD. He also has significant psychiatric history and has a guardian who makes decision. He was found to have severe sepsis likely from UTI. He was treated appropriately with severe sepsis protocol. No history of diabetes, however likely history of active smoking in the past. History is limited. Review of Systems-Cardiology Review of Systems Constitutional: As described under HPI; No As described under HPI, No no symptoms reported, No chills; fever; No lightheadedness Eyes: No As described under HPI, No no symptoms reported, No blindness, No blurred vision, No contact lenses, No drainage, No decreased acuity, No foreign body sensation, No pain, No vision change Ears/Nose/Throat: No As described under HPI, No no symptoms reported, No chronic hearing loss, No ear discharge, No ear pain, No nasal drainage, No ulcerations Respiratory: No no symptoms reported; As described under HPI; No As described under HPI, No cough, No orthopnea, No shortness of breath, No SOB with excertion Cardiovascular: No no symptoms reported; As described under HPI; No As described under HPI, No chest pain, No edema, No irregular heart rate, No lightheadedness, No palpitations Gastrointestinal: No no symptoms reported, No As described under HPI, No abdomen distended, No abdominal pain, No blood streaked bowels, No constipation , No diarrhea, No nausea, No vomiting, No stool coloration changes Genitourinary: No As described under HPI, No burning, No dysuria, No discharge , No frequency, No flank pain, No hematuria, No urgency Skin: No rash, No skin related problems, No ulcerations Psychiatric/Neurological: No anxiety, No depression, No seizure, No focal weakness, No syncope Hematologic: No bleeding abnormalities [id number] Hx Patient Social History Employed/Student: unemployed Alcohol Use: Denies Use Recreational Drug Use: No Smoking Status: Current Someday Smoker Type Used: Pipe Recent Foreign Travel: No Recent Infectious Disease Expo: No Hospitalization with Isolation: Denies Immunizations Up To Date Date of Pneumonia Vaccine: Dec 25, 2016 Past Medical History PMH As described under Assessment. Allergies and Home Medications Allergies Coded Allergies: codeine (Verified Allergy, Unknown, 06/25/18) Home Medications Acetaminophen 500 Mg Tablet, 500 MG PO DAILY PRN for PAIN-MILD, (Reported) Albuterol/Ipratropium 4 Gm Aero, 2 PUFF IH Q6H PRN for SHORTNESS OF BREATH, ( Reported) Albuterol/Ipratropium 4 Gm Aero, 2 PUFF IH TID, (Reported) Aspirin 81 Mg Tablet.dr, 81 MG PO DAILY, (Reported) Benztropine Mesylate 0.5 Mg Tablet, 0.5 MG PO TID, (Reported) Cariprazine Hydrochloride 3 Mg Capsule, 3 MG PO DAILY, (Reported) Clonazepam 0.5 Mg Tablet, 0.5 MG PO BID, (Reported) Dextran 70/Hypromellose 15 Ml Drops, 2 DROPS OU Q2H PRN for DRY EYES, (Reported) Guaifenesin/Dextromethorphan 5 Ml Syrup, 30 ML PO Q8H PRN for CONGESTION, ( Reported) Ipratropium/Albuterol Sulfate 3 Ml Ampul.neb, 3 ML IH Q6H PRN for SHORTNESS OF BREATH, (Reported) Ipratropium/Albuterol Sulfate 3 Ml Ampul.neb, 3 ML NEB TID, (Reported) Magnesium Hydroxide 400 Mg/5 Ml Oral.susp, 30 ML PO DAILY PRN for CONSTIPATION- 7TH LINE, (Reported) Melatonin 10 Mg Capsule, 10 MG PO HS, (Reported) Olanzapine 5 Mg Tablet, 5 MG PO QID, (Reported) Polyethylene Glycol 3350 17 Gm Powd.pack, 17 GM PO DAILY, (Reported) Propranolol HCl 20 Mg Tablet, 20 MG PO TID, (Reported) HOLD FOR SBP <100 Sennosides 8.6 Mg Tablet, 8.6 MG PO HS, (Reported) Triamcinolone Acet 15 Gm Cr, TP Q12H PRN for ITCHING, (Reported) Patient Home Medication List Home Medication List Reviewed: Yes Physical Exam-Cardiology Physical Exam Vital Signs/I&O 06/25/18 06/25/18 06/25/18 06/25/18 09:16 09:32 11:51 12:02 Temp 97.7 100.3 Pulse 79 68 72 Resp 18 18 26 B/P (MAP) 102/59 (73) 113/72 (86) 85/61 (69) Pulse Ox 95 93 95 96 O2 Delivery Nasal Cannula Nasal Cannula Nasal Cannula Nasal Cannula O2 Flow Rate 2.00 2.00 2.00 2.00 06/25/18 06/25/18 06/25/18 06/25/18 12:14 12:15 12:30 12:45 Pulse 75 75 75 74 Resp 19 23 17 B/P (MAP) 85/71 (76) 112/77 (89) 117/81 (93) Pulse Ox 96 96 95 O2 Delivery Nasal Cannula Nasal Cannula Nasal Cannula O2 Flow Rate 2.00 2.00 2.00 06/25/18 06/25/18 06/25/18 06/25/18 13:00 13:00 13:32 14:00 Pulse 69 71 70 Resp 23 B/P (MAP) 110/97 (101) 138/118 (125) Pulse Ox 96 97 96 O2 Delivery Nasal Cannula Room Air Nasal Cannula O2 Flow Rate 2.00 2.00 06/25/18 06/25/18 06/25/18 06/25/18 14:15 15:00 16:00 16:00 Temp 100.3 Pulse 72 77 Resp 6 27 B/P (MAP) 132/78 (96) 130/71 (90) Pulse Ox 96 96 O2 Delivery Nasal Cannula Nasal Cannula Room Air O2 Flow Rate 2.00 2.00 06/25/18 17:09 Pulse 79 Pulse Ox 95 FiO2 28 Capillary Refill : Less Than 3 Seconds Constitutional: appears stated age; No apparent distress; well-developed, well- nourished HEENT: PERRL; No normal ENT inspection, No TMs normal, No pharynx normal, No scleral icterus (R), No scleral icterus (L), No pale conjunctivae (R), No pale conjunctivae (L), No photophobia, No TM abnormal (R), No TM abnormal (L), No pharyngeal erythema, No tonsillar exudate, No other, No discharge, No EOMI; hearing is well preserved; No hard of hearing; oral hygience is good; No ulceration, No xanthelasmas are seen Neck: No non-tender, No full range of motion, No supple, No normal inspection, No carotid bruit, No limited range of motion, No lymphadenopathy (R), No lymphadenopathy (L), No tender lateral, No tender midline, No thyromegaly, No other; carotid pulses are 2 + bilaterally; No with good upstrokes Respiratory: No accessory muscle use, No respiratory distress, No chest tender , No chest expansion is symmetric; chest is bilaterally symmetric; No lungs clear to percussion; lungs clear to auscultation; No crackles, No rhonchi, No rales, No stridor, No wheezing, No pleural rub, No other Cardiovascular: regular rate-rhythm; No irregularly irregular, No extra beats, No parasternal heave is noted, No JVD, No edema, No bradycardia, No tachycardia , No point of maximal impulse, No cardiac thrills are palpable; S1 and S2; No gallop/S3, No gallop/S4, No diastolic murmur, No systolic murmur, No friction rub, No click, No other Gastrointestinal: No tender, No soft, No round, No distended, No pulsatile mass , No organomegaly, No guarding, No rebound, No tenderness, No hernia, No mass, No audible bowel sounds, No abnormal bowel sounds, No abdominal bruits, No spleenomegaly, No other Rectal: deferred Extremities: No normal range of motion, No non-tender, No normal inspection, No pedal edema, No calf tenderness, No normal capillary refill, No pelvis stable , No calf tenderness, No inflammation, No pedal edema, No slow capillary refill , No swelling, No other, No abrasion, No clubbing, No cyanosis, No ecchymosis, No laceration, No no lower extremity edema bilateral, No significant edema, No tenderness, No wound Neurologic/Psychiatric: no motor/sensory deficits, alert, normal mood/affect, power is 5/5 both on sides Skin: normal color, warm/dry Data Review Labs Laboratory Tests 06/25/18 09:30: White Blood Count 14.9H, Red Blood Count 4.35, Hemoglobin 14.4, Hematocrit 42, Mean Corpuscular Volume 97, Mean Corpuscular Hemoglobin 33, Mean Corpuscular Hemoglobin Concent 34, Red Cell Distribution Width 13.1, Platelet Count 125L, Mean Platelet Volume 10.4, Neutrophils (%) (Auto) 77H, Lymphocytes (%) (Auto) 17 , Monocytes (%) (Auto) 6, Eosinophils (%) (Auto) 0, Basophils (%) (Auto) 0, Neutrophils # (Auto) 11.5H, Lymphocytes # (Auto) 2.5, Monocytes # (Auto) 0.9, Eosinophils # (Auto) 0.0, Basophils # (Auto) 0.0, Neutrophils % (Manual) 80, Lymphocytes % (Manual) 13, Monocytes % (Manual) 7, Blood Morphology Comment NORMAL, Prothrombin Time 15.4H, INR Comment 1.2, Activated Partial Thromboplast Time 31, Sodium Level 137, Potassium Level 3.7, Chloride Level 103, Carbon Dioxide Level 27, Anion Gap 7, Blood Urea Nitrogen 12, Creatinine 0.93, Estimat Glomerular Filtration Rate > 60, BUN/Creatinine Ratio 13, Glucose Level 200H, Lactic Acid Level 1.66, Calcium Level 8.8, Corrected Calcium 9.2, Magnesium Level 1.9, Total Bilirubin 1.3H, Aspartate Amino Transf (AST/SGOT) 50H, Alanine Aminotransferase (ALT/SGPT) 95H, Alkaline Phosphatase 96, Myoglobin 79.1, Troponin I < 0.028, C-Reactive Protein High Sensitivity 2.54H, B-Type Natriuretic Peptide 22.6, Total Protein 6.8, Albumin 3.5 06/25/18 10:42: Urine Color AMBERH, Urine Clarity CLEAR, Urine pH 7, Urine Specific [place] 1.010L, Urine Protein 2+H, Urine Glucose (UA) NEGATIVE, Urine Ketones NEGATIVE, Urine Nitrite POSITIVEH, Urine Bilirubin NEGATIVE, Urine Urobilinogen 8H, Urine Leukocyte Esterase 3+H, Urine RBC (Auto) 5+H, Urine RBC 50-100H, Urine WBC 25- 50H, Urine Squamous Epithelial Cells NONE, Urine Crystals NONE, Urine Bacteria LARGEH, Urine Casts NONE, Urine Mucus NEGATIVE, Urine Culture Indicated CULTURE PENDING 06/25/18 16:39: Troponin I < 0.028 Microbiology 06/25/18 Influenza Types A,B Antigen (GADIEL) - Final, Complete A/P-Cardiology Assessment/Admission Diagnosis Severe sepsis, UTI, COPD, Chest pain Plan Severe sepsis: Aggressive IV fluids, IV antibiotics, deferred to the primary team and Dr. Pardo. COPD: On duoneb inhalation. Chest pain: First troponin is negative. No further chest pain. Will do serial troponin. Echocardiogram. Patient may require a nuclear stress test to rule out ischemia. Thank you for your consultation. Please call me if you have any questions. John Ballesteros MD, FACP, FACC, FSCAI, FHRS, CCDS Interventional Cardiology Cardiac Electrophysiology Vascular Medicine and Endovascular Interventions Clinical Quality Measures AMI/AHF: ASA po Prior to arrival: Yes (BY EMS) DVT/VTE Risk/Contraindication: Risk Factor Score Per Nursin RFS Level Per Nursing on Admit: 4+=Very High Velma BALLESTEROS MD Jun 25, 2018 18:25
[2018-06-25] MEDS: RT-ALBUTEROL/IPRATROPIUM 3 ML (DUONEB) VIAL INH SCH ×2 (18:29→22:04)
[2018-06-25] MEDS ORDERED: RT-ALBUTEROL/IPRATROPIUM 3 ML (DUONEB) VIAL INH PRN (20:00)
[2018-06-26] VITALS (18 sets, daily range): BP systolic 102–154; BP diastolic 58–81
[2018-06-26] MEDS: PIPERACILLIN/TAZO 4.5 GM/NS 100 ML IV SCH ×6 (00:30→17:43)
[2018-06-26] MEDS: RT-ALBUTEROL/IPRATROPIUM 3 ML (DUONEB) VIAL INH SCH ×6 (02:11→22:26)
[2018-06-26] MEDS: NOREPINEPHRINE 4 MG in NS (IVPB) 250 ML IV SCH (02:22)
[2018-06-26 04:06] LABS: BASOPHILS % (AUTO) 0 % (0-10); EOSINOPHILS % (AUTO) 0 % (0-10); HEMATOCRIT 42 % (40-54); HEMOGLOBIN 13.9 G/DL (13.3-17.7); LYMPHOCYTES # (AUTO) 2.6 X 10^3 (1.0-4.0); LYMPHOCYTES % (AUTO) 16 % (12-44); MEAN CORPUSCULAR HEMOGLOBIN 32 PG (25-34); MEAN CORPUSCULAR HGB CONC 33 G/DL (32-36); MEAN CORPUSCULAR VOLUME 97 FL (80-99); MEAN PLATELET VOLUME 10.7 FL (7.4-10.4); MONOCYTES # (AUTO) 1.3 X 10^3 (0.0-1.0); MONOCYTES % (AUTO) 8 % (0-12); NEUTROPHILS # (AUTO) 12.7 X 10^3 (1.8-7.8); NEUTROPHILS % (AUTO) 76 % (42-75); PLATELET COUNT 98 10^3/uL (130-400); RED CELL DISTRIBUTION WIDTH 13.2 % (10.0-14.5); WHITE BLOOD COUNT 16.6 10^3/uL (4.3-11.0)
[2018-06-26 04:28] LABS: ALANINE AMINOTRANSFERASE 72 U/L (0-55); ALKALINE PHOSPHATASE 80 U/L (40-136); BILIRUBIN,TOTAL 1.6 MG/DL (0.1-1.0); BUN/CREATININE RATIO 11; CALCIUM 7.7 MG/DL (8.5-10.1); CARBON DIOXIDE 20 MMOL/L (21-32); CHLORIDE 109 MMOL/L (98-107); CHOLESTEROL 88 MG/DL (< 200); CREATININE SERUM 0.79 MG/DL (0.60-1.30); GFR ESTIMATED > 60; GLUCOSE 111 MG/DL (70-105); HDL CHOLESTEROL 19 MG/DL (40-60); MAGNESIUM 1.5 MG/DL (1.8-2.4); SODIUM 138 MMOL/L (135-145); TOTAL PROTEIN 6.1 GM/DL (6.4-8.2); TRIGLYCERIDES 87 MG/DL (<150); VLDL CHOLESTEROL 17 MG/DL (5-40)
--- NOTE | 2018-06-26 05:08 | Pulmonary Progress Note ---
Subjective Time Seen by a Provider: 05:11 Subjective/Events-last exam Pt appears to be doing better. Sepsis Event Evaluation Height, Weight, BMI Height: 5'9.00" Weight: 237lbs. 0.0oz. 107.215738mb; 35.0 BMI Method:Stated Focused Exam Lactate Level 06/25/18 09:30: Lactic Acid Level 1.66 Time of Focused Exam: 11:25 Exam Exam Vital Signs Date Time Temp Pulse Resp B/P (MAP) Pulse Ox O2 Delivery O2 Flow Rate FiO2 06/26/18 04:00 Room Air 06/26/18 03:00 80 18 146/80 (102) 96 Nasal Cannula 2.00 06/26/18 02:11 96 Nasal Cannula 3.00 06/26/18 02:00 77 18 144/74 (97) 96 Nasal Cannula 2.00 06/26/18 01:00 76 06/26/18 01:00 76 19 154/77 (102) 96 Nasal Cannula 2.00 06/26/18 00:00 Room Air 06/26/18 00:00 100.4 76 18 153/81 (105) 97 Nasal Cannula 2.00 06/25/18 23:00 80 24 137/96 (110) 90 Nasal Cannula 2.00 06/25/18 22:04 96 Nasal Cannula 3.00 06/25/18 22:00 78 22 128/65 (86) 95 Nasal Cannula 2.00 06/25/18 21:18 92 22 110/36 (60) 96 Nasal Cannula 2.00 06/25/18 20:00 Room Air 06/25/18 20:00 100.0 85 24 95 Nasal Cannula 2.00 06/25/18 19:00 84 06/25/18 19:00 84 95 Nasal Cannula 2.00 06/25/18 18:30 93 Nasal Cannula 3.00 06/25/18 17:09 79 95 28 06/25/18 16:00 83 152/86 (108) 96 Nasal Cannula 2.00 06/25/18 16:00 Room Air 06/25/18 16:00 100.3 06/25/18 15:00 77 27 130/71 (90) 96 Nasal Cannula 2.00 06/25/18 14:15 72 6 132/78 (96) 96 Nasal Cannula 2.00 06/25/18 14:00 70 138/118 (125) 96 Nasal Cannula 2.00 06/25/18 13:32 97 Room Air 06/25/18 13:00 71 23 110/97 (101) 96 Nasal Cannula 2.00 06/25/18 13:00 69 06/25/18 12:45 74 17 117/81 (93) 95 Nasal Cannula 2.00 06/25/18 12:30 75 23 112/77 (89) 96 Nasal Cannula 2.00 06/25/18 12:15 75 19 85/71 (76) 96 Nasal Cannula 2.00 06/25/18 12:14 75 06/25/18 12:02 100.3 72 26 85/61 (69) 96 Nasal Cannula 2.00 06/25/18 11:51 68 18 113/72 (86) 95 Nasal Cannula 2.00 06/25/18 09:32 93 Nasal Cannula 2.00 06/25/18 09:16 97.7 79 18 102/59 (73) 95 Nasal Cannula 2.00 I & O 06/26/18 07:00 Intake Total 6305.03 ml Output Total 800 ml Balance 5505.03 ml Height & Weight Height: 5'9.00" Weight: 237lbs. 0.0oz. 107.574152zy; 35.0 BMI Method:Stated General Appearance: No Apparent Distress, WD/WN HEENT: Normal ENT Inspection Neck: Normal Inspection, Non Tender Respiratory: No Accessory Muscle Use, No Respiratory Distress, Decreased Breath Sounds Cardiovascular: Regular Rate, Rhythm, No Murmur Capillary Refill: Less Than 3 Seconds Peripheral Pulses: 2+ Radial Pulses (R) Extremity: Normal Inspection, Non Tender, No Calf Tenderness, No Pedal Edema, Other (negative Semaj) Neurologic/Psychiatric: Alert, Motor Weakness (generalized), Other ( generalized weakness. Affect flat. Speech slurred. Answers questions appropriately) Results Lab Laboratory Tests 06/25/18 09:30 06/26/18 03:15 Assessment/Plan Assessment/Plan Severe sepsis -pt is on sepsis protocol -Vazquez cultures are pending UTI -Continue Zosyn COPDAE -SVNS -Oxygen and monitor Hypomag, hypophos -replace TASH JACKSON DO Jun 26, 2018 05:08
[2018-06-26] MEDS ORDERED: SODIUM PHOSPHATE INJ 30 MM in NS (IVPB) 250 ML IV ONE (05:15)
[2018-06-26] MEDS: NS IV 1000 ML 1,000 ML IV SCH ×2 (05:41→07:30)
[2018-06-26] MEDS: MAGNESIUM 1 GM/100 ML IVPB 100 ML IV SCH ×2 (05:41→07:20)
[2018-06-26] MEDS ORDERED: KCL 20 MEQ TAB (K-DUR) PO SCH (06:00)
[2018-06-26] MEDS ORDERED: POTASSIUM CL 10MEQ/50ML IVPB 50 ML IV SCH (06:00)
[2018-06-26] MEDS ORDERED: MAGNESIUM 1 GM/100 ML IVPB 100 ML IV SCH (06:00)
--- NOTE | 2018-06-26 07:37 | Progress Note (SOAP) ---
Subjective Time Seen by a Provider: 07:35 Subjective/Events-last exam Patient feeling better and doing better. Platelet count went from 125 to-95,000. DC the Lovenox. White blood cell count 16,000. Blood pressure better Focused Exam Lactate Level 06/25/18 09:30: Lactic Acid Level 1.66 Time of Focused Exam: 11:25 Objective Exam Vital Signs Date Time Temp Pulse Resp B/P (MAP) Pulse Ox O2 Delivery O2 Flow Rate FiO2 06/26/18 06:00 77 12 140/65 (90) 96 Nasal Cannula 2.00 06/26/18 05:59 96 Nasal Cannula 2.50 06/26/18 05:00 76 15 144/76 (98) 97 Nasal Cannula 2.00 06/26/18 04:00 Room Air 06/26/18 04:00 77 18 140/73 (95) 97 Nasal Cannula 2.00 06/26/18 04:00 98.9 06/26/18 03:00 80 18 146/80 (102) 96 Nasal Cannula 2.00 06/26/18 02:11 96 Nasal Cannula 3.00 06/26/18 02:00 77 18 144/74 (97) 96 Nasal Cannula 2.00 06/26/18 01:00 76 06/26/18 01:00 76 19 154/77 (102) 96 Nasal Cannula 2.00 06/26/18 00:00 Room Air 06/26/18 00:00 100.4 76 18 153/81 (105) 97 Nasal Cannula 2.00 06/25/18 23:00 80 24 137/96 (110) 90 Nasal Cannula 2.00 06/25/18 22:04 96 Nasal Cannula 3.00 06/25/18 22:00 78 22 128/65 (86) 95 Nasal Cannula 2.00 06/25/18 21:18 92 22 110/36 (60) 96 Nasal Cannula 2.00 06/25/18 20:00 Room Air 06/25/18 20:00 100.0 85 24 95 Nasal Cannula 2.00 06/25/18 19:00 84 06/25/18 19:00 84 95 Nasal Cannula 2.00 06/25/18 18:30 93 Nasal Cannula 3.00 06/25/18 17:09 79 95 28 06/25/18 16:00 83 152/86 (108) 96 Nasal Cannula 2.00 06/25/18 16:00 Room Air 06/25/18 16:00 100.3 06/25/18 15:00 77 27 130/71 (90) 96 Nasal Cannula 2.00 06/25/18 14:15 72 6 132/78 (96) 96 Nasal Cannula 2.00 06/25/18 14:00 70 138/118 (125) 96 Nasal Cannula 2.00 06/25/18 13:32 97 Room Air 06/25/18 13:00 71 23 110/97 (101) 96 Nasal Cannula 2.00 06/25/18 13:00 69 06/25/18 12:45 74 17 117/81 (93) 95 Nasal Cannula 2.00 06/25/18 12:30 75 23 112/77 (89) 96 Nasal Cannula 2.00 06/25/18 12:15 75 19 85/71 (76) 96 Nasal Cannula 2.00 06/25/18 12:14 75 06/25/18 12:02 100.3 72 26 85/61 (69) 96 Nasal Cannula 2.00 06/25/18 11:51 68 18 113/72 (86) 95 Nasal Cannula 2.00 06/25/18 09:32 93 Nasal Cannula 2.00 06/25/18 09:16 97.7 79 18 102/59 (73) 95 Nasal Cannula 2.00 I & O 06/26/18 07:00 Intake Total 7405.03 ml Output Total 2300 ml Balance 5105.03 ml Capillary Refill : Less Than 3 Seconds General Appearance: No Apparent Distress, WD/WN HEENT: Normal ENT Inspection Neck: Full Range of Motion, Normal Inspection Respiratory: Chest Non Tender, Lungs Clear, Normal Breath Sounds, No Accessory Muscle Use, No Respiratory Distress Cardiovascular: Regular Rate, Rhythm, No Murmur Gastrointestinal: non tender, soft Results Lab Laboratory Tests 06/25/18 09:30 06/26/18 03:15 Laboratory Tests 06/25/18 09:30: White Blood Count 14.9H, Red Blood Count 4.35, Hemoglobin 14.4, Hematocrit 42, Mean Corpuscular Volume 97, Mean Corpuscular Hemoglobin 33, Mean Corpuscular Hemoglobin Concent 34, Red Cell Distribution Width 13.1, Platelet Count 125L, Mean Platelet Volume 10.4, Neutrophils (%) (Auto) 77H, Lymphocytes (%) (Auto) 17 , Monocytes (%) (Auto) 6, Eosinophils (%) (Auto) 0, Basophils (%) (Auto) 0, Neutrophils # (Auto) 11.5H, Lymphocytes # (Auto) 2.5, Monocytes # (Auto) 0.9, Eosinophils # (Auto) 0.0, Basophils # (Auto) 0.0, Neutrophils % (Manual) 80, Lymphocytes % (Manual) 13, Monocytes % (Manual) 7, Blood Morphology Comment NORMAL, Prothrombin Time 15.4H, INR Comment 1.2, Activated Partial Thromboplast Time 31, Sodium Level 137, Potassium Level 3.7, Chloride Level 103, Carbon Dioxide Level 27, Anion Gap 7, Blood Urea Nitrogen 12, Creatinine 0.93, Estimat Glomerular Filtration Rate > 60, BUN/Creatinine Ratio 13, Glucose Level 200H, Lactic Acid Level 1.66, Calcium Level 8.8, Corrected Calcium 9.2, Magnesium Level 1.9, Total Bilirubin 1.3H, Aspartate Amino Transf (AST/SGOT) 50H, Alanine Aminotransferase (ALT/SGPT) 95H, Alkaline Phosphatase 96, Myoglobin 79.1, Troponin I < 0.028, C-Reactive Protein High Sensitivity 2.54H, B-Type Natriuretic Peptide 22.6, Total Protein 6.8, Albumin 3.5 06/25/18 10:42: Urine Color AMBERH, Urine Clarity CLEAR, Urine pH 7, Urine Specific [place] 1.010L, Urine Protein 2+H, Urine Glucose (UA) NEGATIVE, Urine Ketones NEGATIVE, Urine Nitrite POSITIVEH, Urine Bilirubin NEGATIVE, Urine Urobilinogen 8H, Urine Leukocyte Esterase 3+H, Urine RBC (Auto) 5+H, Urine RBC 50-100H, Urine WBC 25- 50H, Urine Squamous Epithelial Cells NONE, Urine Crystals NONE, Urine Bacteria LARGEH, Urine Casts NONE, Urine Mucus NEGATIVE, Urine Culture Indicated CULTURE PENDING 06/25/18 16:39: Troponin I < 0.028 06/26/18 03:15: White Blood Count 16.6H, Red Blood Count 4.29L, Hemoglobin 13.9, Hematocrit 42, Mean Corpuscular Volume 97, Mean Corpuscular Hemoglobin 32, Mean Corpuscular Hemoglobin Concent 33, Red Cell Distribution Width 13.2, Platelet Count 98L, Mean Platelet Volume 10.7H, Neutrophils (%) (Auto) 76H, Lymphocytes (%) (Auto) 16, Monocytes (%) (Auto) 8, Eosinophils (%) (Auto) 0, Basophils (%) (Auto) 0, Neutrophils # (Auto) 12.7H, Lymphocytes # (Auto) 2.6, Monocytes # (Auto) 1.3H, Eosinophils # (Auto) 0.0, Basophils # (Auto) 0.0, Sodium Level 138, Potassium Level 4.0, Chloride Level 109H, Carbon Dioxide Level 20L, Anion Gap 9, Blood Urea Nitrogen 9, Creatinine 0.79, Estimat Glomerular Filtration Rate > 60, BUN/ Creatinine Ratio 11, Glucose Level 111H, Calcium Level 7.7L, Corrected Calcium 8.5, Magnesium Level 1.5L, Total Bilirubin 1.6H, Aspartate Amino Transf (AST/ SGOT) 39H, Alanine Aminotransferase (ALT/SGPT) 72H, Alkaline Phosphatase 80, Total Protein 6.1L, Albumin 3.0L, Phosphorus Level 2.0L, Triglycerides Level 87 , Cholesterol Level 88, LDL Cholesterol Direct 55, VLDL Cholesterol 17, HDL Cholesterol 19L Microbiology 06/25/18 Influenza Types A,B Antigen (GADIEL) - Final, Complete Assessment/Plan Assessment/Plan Assess & Plan/Chief Complaint Sepsis. UTI. COPD. Thrombocytopenia. Chest pain resolved Clinical Quality Measures Admission Status Admission Dx Febrile. UTI. Chest pain. Thrombocytopenia. Sepsis. Hypotension. Psychiatric problem. EPS extrapyramidal symptoms AMI/AHF: ASA po Prior to arrival: Yes (BY EMS) DVT/VTE Risk/Contraindication: Risk Factor Score Per Nursin RFS Level Per Nursing on Admit: 4+=Very High TANI CRAFT DO Jun 26, 2018 07:37
[2018-06-26] MEDS: ACETAMINOPHEN 500 MG TAB (TYLENOL) PO PRN ×3 (08:06→23:56)
[2018-06-26] MEDS: ASPIRIN E.C. 81 MG (ECOTRIN) TAB PO SCH (09:51)
--- NOTE | 2018-06-26 09:59 | Diagnostic Imaging Report ---
Indication: Dyspnea Frontal chest obtained at 344 hours a.m. as compared to yesterday. There is cardiomegaly. There is central vascular congestion with borderline interstitial edema, which is new compared to the prior study. There is poor inspiration. There is no pneumothorax or pleural fluid. There is some minimal infiltrate or atelectasis in the left base. Impression: Cardiomegaly with central vascular congestion and early interstitial edema. There is some new minimal infiltrate in the left base. There is poor inspiration compared to the previous study. Dictated by: Dictated on workstation # [id number]
--- NOTE | 2018-06-26 11:35 | Cardiology Progress Note ---
Cardiology SOAP Progress Note Subjective: No cardiac complaints. Objective: I&O/Vital Signs 06/27/18 06/27/18 06/27/18 06/27/18 02:34 04:44 07:42 08:00 Temp 100.0 101.9 Pulse 78 98 Resp 20 20 B/P (MAP) 102/50 (67) 104/63 (77) Pulse Ox 97 93 94 O2 Delivery Nasal Cannula Nasal Cannula Nasal Cannula Nasal Cannula O2 Flow Rate 2.00 2.00 2.00 2.00 06/27/18 06/27/18 06/27/18 08:07 10:21 12:03 Temp 101.0 99.0 Pulse 95 Resp 20 B/P (MAP) 117/68 (84) Pulse Ox 91 94 O2 Delivery Trach Collar Nasal Cannula O2 Flow Rate 2.00 2.00 06/26/18 23:59 Intake Total 840 ml Output Total 2225 ml Balance -1385 ml Weight (Pounds): 245 Weight (Ounces): 0.0 Weight (Calculated Kilograms): 111.758467 Constitutional: appears stated age; No apparent distress; well-developed, well- nourished Respiratory: No accessory muscle use, No respiratory distress, No chest tender , No chest expansion is symmetric; chest is bilaterally symmetric; No lungs clear to percussion; lungs clear to auscultation; No crackles, No rhonchi, No rales, No stridor, No wheezing, No pleural rub, No other Cardiovascular: regular rate-rhythm; No irregularly irregular, No extra beats, No parasternal heave is noted, No JVD, No edema, No bradycardia, No tachycardia , No point of maximal impulse, No cardiac thrills are palpable; S1 and S2; No gallop/S3, No gallop/S4, No diastolic murmur, No systolic murmur, No friction rub, No click, No other Gastrointestional: No tender, No soft, No round, No distended, No pulsatile mass, No organomegaly, No guarding, No rebound, No tenderness, No hernia, No mass, No audible bowel sounds, No abnormal bowel sounds, No abdominal bruits, No spleenomegaly, No other Extremities: No normal range of motion, No non-tender, No normal inspection, No pedal edema, No calf tenderness, No normal capillary refill, No pelvis stable , No calf tenderness, No inflammation, No pedal edema, No slow capillary refill , No swelling, No other, No abrasion, No clubbing, No cyanosis, No ecchymosis, No laceration, No no lower extremity edema bilateral, No significant edema, No tenderness, No wound Neurologic/Psychiatric: no motor/sensory deficits, alert, normal mood/affect, power is 5/5 both on sides Skin: normal color, warm/dry Results/Procedures: Labs Laboratory Tests 06/27/18 04:00: White Blood Count 12.4H, Red Blood Count 4.12L, Hemoglobin 13.2L, Hematocrit 40 , Mean Corpuscular Volume 96, Mean Corpuscular Hemoglobin 32, Mean Corpuscular Hemoglobin Concent 33, Red Cell Distribution Width 13.3, Platelet Count 113L, Mean Platelet Volume 10.4, Neutrophils (%) (Auto) 77H, Lymphocytes (%) (Auto) 15 , Monocytes (%) (Auto) 8, Eosinophils (%) (Auto) 0, Basophils (%) (Auto) 0, Neutrophils # (Auto) 9.5H, Lymphocytes # (Auto) 1.9, Monocytes # (Auto) 1.0, Eosinophils # (Auto) 0.0, Basophils # (Auto) 0.0, Sodium Level 137, Potassium Level 3.5L, Chloride Level 108H, Carbon Dioxide Level 21, Anion Gap 8, Blood Urea Nitrogen 13, Creatinine 0.86, Estimat Glomerular Filtration Rate > 60, BUN/ Creatinine Ratio 15, Glucose Level 139H, Calcium Level 7.9L, Phosphorus Level 1.9L, Magnesium Level 2.0 Microbiology 06/25/18 Blood Culture - Preliminary, Resulted No growth 06/25/18 MRSA Screen - Final, Complete MRSA not isolated 06/25/18 Urine Culture - Final, Complete Escherichia coli A/P: Assessment/Dx: Severe sepsis, UTI, COPD, Chest pain Plan: Severe sepsis: Aggressive IV fluids, IV antibiotics, deferred to the primary team and Dr. Pardo. Improved significantly. COPD: On duoneb inhalation. Chest pain: Serial troponin negative. Echocardiogram. Patient may require a nuclear stress test to rule out ischemia. If the patient stays still Friday, we should schedule for Friday. Thank you for your consultation. Please call me if you have any questions. John Ballesteros MD, FACP, FACC, FSCAI, FHRS, CCDS Interventional Cardiology Cardiac Electrophysiology Vascular Medicine and Endovascular Interventions Focused Exam Lactate Level 06/25/18 09:30: Lactic Acid Level 1.66 Time of Focused Exam: 11:25 Clinical Quality Measures AMI/AHF: ASA po Prior to arrival: Yes (BY EMS) Velma BALLESTEROS MD Jun 26, 2018 11:35 am
--- NOTE | 2018-06-26 14:30 | NUR ---
REPORT CALLED TO ELINOR GRANT, PATIENT TRANSFERRED TO ROM 409. PATIENT ORIENTED TO ROOM, CALL LIGHT, DENIES ANY PAIN OR DISCOMFORT AT THIS TIME.
[2018-06-27] MEDS: PIPERACILLIN/TAZO 4.5 GM/NS 100 ML IV SCH ×6 (00:40→17:18)
[2018-06-27 00:49] VITALS: BP 94/61
[2018-06-27] MEDS: NS IV 1000 ML 1,000 ML IV SCH (02:02)
[2018-06-27] MEDS: RT-ALBUTEROL/IPRATROPIUM 3 ML (DUONEB) VIAL INH SCH ×5 (02:32→21:33)
[2018-06-27 04:31] LABS: BASOPHILS % (AUTO) 0 % (0-10); EOSINOPHILS % (AUTO) 0 % (0-10); HEMATOCRIT 40 % (40-54); HEMOGLOBIN 13.2 G/DL (13.3-17.7); LYMPHOCYTES # (AUTO) 1.9 X 10^3 (1.0-4.0); LYMPHOCYTES % (AUTO) 15 % (12-44); MEAN CORPUSCULAR HEMOGLOBIN 32 PG (25-34); MEAN CORPUSCULAR HGB CONC 33 G/DL (32-36); MEAN CORPUSCULAR VOLUME 96 FL (80-99); MEAN PLATELET VOLUME 10.4 FL (7.4-10.4); MONOCYTES % (AUTO) 8 % (0-12); NEUTROPHILS # (AUTO) 9.5 X 10^3 (1.8-7.8); NEUTROPHILS % (AUTO) 77 % (42-75); PLATELET COUNT 113 10^3/uL (130-400); RED CELL DISTRIBUTION WIDTH 13.3 % (10.0-14.5); WHITE BLOOD COUNT 12.4 10^3/uL (4.3-11.0)
[2018-06-27 04:44] VITALS: BP_SYST 101; BP_SYST 102; BP_DIAS 50; BP_DIAS 66
[2018-06-27 04:45] LABS: BUN/CREATININE RATIO 15; CALCIUM 7.9 MG/DL (8.5-10.1); CARBON DIOXIDE 21 MMOL/L (21-32); CHLORIDE 108 MMOL/L (98-107); CREATININE SERUM 0.86 MG/DL (0.60-1.30); GFR ESTIMATED > 60; GLUCOSE 139 MG/DL (70-105); PHOSPHORUS 1.9 MG/DL (2.3-4.7); POTASSIUM 3.5 MMOL/L (3.6-5.0); SODIUM 137 MMOL/L (135-145)
--- NOTE | 2018-06-27 07:06 | Pulmonary Progress Note ---
Subjective Time Seen by a Provider: 07:06 Subjective/Events-last exam Pt is having persistent fevers. Sepsis Event Evaluation Height, Weight, BMI Height: 5'9.00" Weight: 248lbs. 2.0oz. 112.987908gt; 35.0 BMI Method:Stated Focused Exam Lactate Level 06/25/18 09:30: Lactic Acid Level 1.66 Time of Focused Exam: 11:25 Exam Exam Vital Signs Date Time Temp Pulse Resp B/P (MAP) Pulse Ox O2 Delivery O2 Flow Rate FiO2 06/27/18 04:44 100.0 78 20 102/50 (67) 97 Nasal Cannula 2.00 06/27/18 02:34 Nasal Cannula 2.00 06/27/18 00:49 101.9 103 20 94/61 (72) 95 Nasal Cannula 2.00 06/27/18 00:45 100.9 06/26/18 23:56 101.8 06/26/18 22:28 94 Nasal Cannula 2.00 06/26/18 21:00 Nasal Cannula 2.00 06/26/18 20:45 100.2 108 20 105/58 (74) 95 Nasal Cannula 2.00 06/26/18 18:48 92 Nasal Cannula 2.00 06/26/18 18:45 100.4 06/26/18 17:45 100.8 06/26/18 16:40 101.4 99 18 115/71 (86) 95 Nasal Cannula 2.00 06/26/18 16:35 101.4 99 20 115/71 (86) 95 Nasal Cannula 2.00 06/26/18 16:07 100.8 06/26/18 14:51 94 Nasal Cannula 2.00 06/26/18 14:32 100.8 87 20 134/71 (92) 96 Nasal Cannula 2.00 06/26/18 14:32 Room Air 06/26/18 13:01 78 06/26/18 13:00 79 15 138/76 (96) 97 Nasal Cannula 2.00 06/26/18 12:00 Room Air 06/26/18 12:00 90 19 125/74 (91) 97 Nasal Cannula 2.00 06/26/18 11:42 99.2 06/26/18 11:00 83 17 119/68 (85) 95 Nasal Cannula 2.00 06/26/18 10:00 82 20 102/58 (73) 97 Nasal Cannula 2.00 06/26/18 09:55 94 Nasal Cannula 2.50 06/26/18 09:00 79 14 118/72 (87) 95 Nasal Cannula 2.00 06/26/18 08:06 100.8 06/26/18 08:00 Room Air 06/26/18 08:00 82 19 129/63 (85) 95 Nasal Cannula 2.00 06/26/18 07:30 100.8 I & O 06/27/18 07:00 Intake Total 1310 ml Output Total 3225 ml Balance -1915 ml Height & Weight Height: 5'9.00" Weight: 248lbs. 2.0oz. 112.066213sv; 35.0 BMI Method:Stated General Appearance: No Apparent Distress, WD/WN HEENT: Normal ENT Inspection Neck: Full Range of Motion, Normal Inspection Respiratory: Chest Non Tender, Lungs Clear, Normal Breath Sounds, No Accessory Muscle Use, No Respiratory Distress Cardiovascular: Regular Rate, Rhythm, No Murmur Capillary Refill: Less Than 3 Seconds Peripheral Pulses: 2+ Radial Pulses (R) Gastrointestinal: non tender, soft Extremity: Normal Inspection, Non Tender, No Calf Tenderness, No Pedal Edema, Other (negative Semaj) Neurologic/Psychiatric: Alert, Motor Weakness (generalized), Other ( generalized weakness. Affect flat. Speech slurred. Answers questions appropriately) Results Lab Laboratory Tests 06/25/18 09:30 06/26/18 03:15 06/27/18 04:00 Assessment/Plan Assessment/Plan Severe sepsis -pt is on sepsis protocol -Vazquez cultures are pending UTI -Continue Zosyn COPDAE -SVNS -Oxygen and monitor Hypokalemia, hypophos -give 30mmol of Kphos TASH JACKSON DO Jun 27, 2018 07:06
[2018-06-27] MEDS ORDERED: POTASSIUM PHOSPHATE INJ 30 MM in NS (IVPB) 250 ML IV NR (07:15)
--- NOTE | 2018-06-27 07:46 | Diagnostic Imaging Report ---
INDICATION: Dyspnea. COMPARISON: 06/26/2018 FINDINGS: Single frontal radiographic view of the chest was obtained and demonstrates interval normalization of pulmonary vasculature. There is no evidence of significant congestion on today's study. There is some residual left basilar atelectasis and possible small left effusion. Right lung is relatively clear. No pneumothorax seen on either side. Cardiac silhouette remains slightly prominent. Bony structures show no acute abnormalities. IMPRESSION: 1. Persistent mild cardiomegaly, but no evidence of vascular congestion is seen on today's exam. 2. Perhaps small residual left effusion with associated atelectasis. Dictated by: Dictated on workstation # [id number]
[2018-06-27 08:00] VITALS: BP 104/63
[2018-06-27] MEDS ORDERED: IBUPROFEN 800 MG (MOTRIN) TAB PO ONE (08:02)
[2018-06-27] MEDS: ASPIRIN E.C. 81 MG (ECOTRIN) TAB PO SCH (08:06)
--- NOTE | 2018-06-27 11:29 | Progress Note-Hospitalist ---
Subjective HPI/CC On Admission Date Seen by Provider: Jun 27, 2018 Time Seen by Provider: 11:45 Subjective/Events-last exam Patient about the same Fever continues Tylenol dose is decreased due to elevated LFT's mild Ibuprofen given also Home meds reviewed and restarted Oxygen stable Eating and drinking well + BM per patient Review of Systems General: Fatigue Pulmonary: Dyspnea Focused Exam Lactate Level 06/25/18 09:30: Lactic Acid Level 1.66 Time of Focused Exam: 11:25 Objective Exam Vital Signs Vital Signs Date Time Temp Pulse Resp B/P (MAP) Pulse Ox O2 Delivery O2 Flow Rate FiO2 06/27/18 12:03 99.0 95 20 117/68 (84) 94 Nasal Cannula 2.00 06/25/18 17:09 28 Capillary Refill : Less Than 3 Seconds General Appearance: No Apparent Distress, WD/WN, Chronically ill HEENT: Normal ENT Inspection Neck: Full Range of Motion, Normal Inspection Respiratory: Chest Non Tender, Lungs Clear, Normal Breath Sounds, No Accessory Muscle Use, No Respiratory Distress, Decreased Breath Sounds Cardiovascular: Regular Rate, Rhythm, No Murmur Gastrointestinal: Non Tender, Soft Extremity: Normal Inspection, Non Tender, No Calf Tenderness, No Pedal Edema, Other (negative Semaj) Neurologic/Psychiatric: Alert, Motor Weakness (generalized), Other ( generalized weakness. Affect flat. Speech slurred. Answers questions appropriately) Results/Procedures Lab Laboratory Tests 06/27/18 04:00 Patient resulted labs reviewed. Assessment/Plan Assessment and Plan Assess & Plan/Chief Complaint Assessment: Severe sepsis Persistent fevers UTI on Zosyn AECOPD Electrolyte abnl Plan: IS Nebs O2 Abx PT Home meds restarted after review Diagnosis/Problems Diagnosis/Problems (1) Severe sepsis Status: Acute (2) Tremor Status: Chronic (3) COPD exacerbation Status: Acute (4) Hypoxia Status: Acute (5) Urinary tract infection Status: Acute Qualifiers: Urinary tract infection type: site unspecified Hematuria presence: without hematuria Qualified Codes: N39.0 - Urinary tract infection, site not specified (6) Elevated liver enzymes Status: Acute (7) Bipolar disorder Status: Chronic Qualifiers: Active/Remission status: remission status unspecified Qualified Codes: F31.9 - Bipolar disorder, unspecified (8) Muscle atrophy Status: Chronic (9) Muscle weakness Status: Chronic (10) Schizophrenia Status: Chronic Qualifiers: Schizophrenia type: unspecified Qualified Codes: F20.9 - Schizophrenia, unspecified (11) Depression (12) Fever Status: Acute Qualifiers: Fever type: unspecified Qualified Codes: R50.9 - Fever, unspecified (13) Atelectasis Status: Acute (14) Leukocytosis Status: Acute Qualifiers: Leukocytosis type: leukemoid reaction Qualified Codes: D72.823 - Leukemoid reaction (15) Hypokalemia Status: Acute (16) Extrapyramidal and movement disorder Status: Chronic Clinical Quality Measures AMI/AHF: ASA po Prior to arrival: Yes (BY EMS) DVT/VTE Risk/Contraindication: Risk Factor Score Per Nursin RFS Level Per Nursing on Admit: 4+=Very High ADRIANA CRUZ DO Jun 27, 2018 11:29
[2018-06-27 12:03] VITALS: BP 117/68
[2018-06-27] MEDS ORDERED: MILK OF MAGNESIA 400 MG/5 ML 30 ML UDC PO PRN (13:00)
[2018-06-27] MEDS ORDERED: TRIAMCINOLONE 0.1% CR (KENALOG) 15 GM TUBE TP PRN (13:00)
[2018-06-27] MEDS ORDERED: guaiFENesin/DM (ROBITUSSIN DM) 10 ML UDC PO PRN (13:15)
[2018-06-27] MEDS ORDERED: ARTIFICAL TEARS 0.4 ML UNIT DOSE (REFRESH PLUS) OU PRN (13:15)
[2018-06-27] MEDS: PROPRANOLOL 20 MG (INDERAL) TABLET PO SCH ×2 (13:58→22:55)
[2018-06-27] MEDS: OLANZapine 5 MG (ZyPREXA) TAB PO SCH ×3 (13:59→20:41)
[2018-06-27] MEDS: ACETAMINOPHEN 500 MG TAB (TYLENOL) PO PRN (13:59)
[2018-06-27] MEDS: BENZTROPINE MESYLATE 1 MG (COGENTIN) TAB PO SCH ×2 (14:14→20:41)
[2018-06-27 16:00] VITALS: BP 111/68
[2018-06-27 20:00] VITALS: BP 111/67
[2018-06-27] MEDS: SENNA W/DOCUSATE (SENOKOT S) TABLET PO SCH (20:41)
[2018-06-27] MEDS: MELATONIN 3 MG TABLET PO SCH (20:42)
[2018-06-27] MEDS: clonazePAM 0.5 MG (KlonoPIN) TAB PO SCH (21:10)
[2018-06-28 00:22] VITALS: BP 113/72
[2018-06-28] MEDS: PIPERACILLIN/TAZO 4.5 GM/NS 100 ML IV SCH ×2 (00:24)
[2018-06-28] MEDS: RT-ALBUTEROL/IPRATROPIUM 3 ML (DUONEB) VIAL INH SCH ×4 (01:57→21:01)
[2018-06-28] MEDS: NS IV 1000 ML 1,000 ML IV SCH ×2 (04:04→21:34)
[2018-06-28 04:11] VITALS: BP 126/75
[2018-06-28 04:19] LABS: BASOPHILS % (AUTO) 0 % (0-10); EOSINOPHILS # (AUTO) 0.1 10^3/uL (0.0-0.3); EOSINOPHILS % (AUTO) 1 % (0-10); HEMATOCRIT 40 % (40-54); HEMOGLOBIN 13.3 G/DL (13.3-17.7); LYMPHOCYTES # (AUTO) 1.7 X 10^3 (1.0-4.0); LYMPHOCYTES % (AUTO) 16 % (12-44); MEAN CORPUSCULAR HEMOGLOBIN 32 PG (25-34); MEAN CORPUSCULAR HGB CONC 33 G/DL (32-36); MEAN CORPUSCULAR VOLUME 97 FL (80-99); MEAN PLATELET VOLUME 10.8 FL (7.4-10.4); MONOCYTES # (AUTO) 1.2 X 10^3 (0.0-1.0); MONOCYTES % (AUTO) 12 % (0-12); NEUTROPHILS # (AUTO) 7.2 X 10^3 (1.8-7.8); NEUTROPHILS % (AUTO) 70 % (42-75); PLATELET COUNT 123 10^3/uL (130-400); RED CELL DISTRIBUTION WIDTH 13.3 % (10.0-14.5); WHITE BLOOD COUNT 10.3 10^3/uL (4.3-11.0)
[2018-06-28 04:37] LABS: BUN/CREATININE RATIO 18; CALCIUM 8.3 MG/DL (8.5-10.1); CARBON DIOXIDE 22 MMOL/L (21-32); CHLORIDE 110 MMOL/L (98-107); CREATININE SERUM 0.76 MG/DL (0.60-1.30); GFR ESTIMATED > 60; GLUCOSE 121 MG/DL (70-105); MAGNESIUM 1.8 MG/DL (1.8-2.4); POTASSIUM 3.7 MMOL/L (3.6-5.0); SODIUM 138 MMOL/L (135-145)
--- NOTE | 2018-06-28 06:46 | Pulmonary Progress Note ---
Subjective Time Seen by a Provider: 06:45 Subjective/Events-last exam Urine C&S is showing Ecoli Sepsis Event Evaluation Height, Weight, BMI Height: 5'9.00" Weight: 245lbs. 4.8oz. 111.345710ne; 35.0 BMI Method:Stated Focused Exam Lactate Level 06/25/18 09:30: Lactic Acid Level 1.66 Time of Focused Exam: 11:25 Exam Exam Vital Signs Date Time Temp Pulse Resp B/P (MAP) Pulse Ox O2 Delivery O2 Flow Rate FiO2 06/28/18 04:11 100.2 80 16 126/75 (92) 94 Nasal Cannula 2.00 06/28/18 01:57 89 Room Air 06/28/18 00:22 100.2 78 18 113/72 (86) 94 Nasal Cannula 2.00 06/27/18 21:33 90 Room Air 06/27/18 21:00 Nasal Cannula 2.00 06/27/18 20:00 98.9 79 22 111/67 (82) 94 Nasal Cannula 2.00 06/27/18 16:00 98.4 77 18 111/68 (82) 96 Nasal Cannula 2.00 06/27/18 14:17 94 Trach Collar 2.00 06/27/18 12:03 99.0 95 20 117/68 (84) 94 Nasal Cannula 2.00 06/27/18 10:21 91 Trach Collar 2.00 06/27/18 09:00 Nasal Cannula 2.00 06/27/18 08:07 101.0 06/27/18 08:00 101.9 98 20 104/63 (77) 94 Nasal Cannula 2.00 06/27/18 07:42 93 Nasal Cannula 2.00 I & O 06/28/18 07:00 Intake Total 1780 ml Output Total 1790 ml Balance -10 ml Height & Weight Height: 5'9.00" Weight: 245lbs. 4.8oz. 111.133813ba; 35.0 BMI Method:Stated General Appearance: No Apparent Distress, WD/WN, Chronically ill HEENT: Normal ENT Inspection Neck: Full Range of Motion, Normal Inspection Respiratory: Chest Non Tender, Lungs Clear, Normal Breath Sounds, No Accessory Muscle Use, No Respiratory Distress, Decreased Breath Sounds Cardiovascular: Regular Rate, Rhythm, No Murmur Capillary Refill: Less Than 3 Seconds Peripheral Pulses: 2+ Radial Pulses (R) Gastrointestinal: non tender, soft Extremity: Normal Inspection, Non Tender, No Calf Tenderness, No Pedal Edema, Other (negative Semaj) Neurologic/Psychiatric: Alert, Motor Weakness (generalized), Other ( generalized weakness. Affect flat. Speech slurred. Answers questions appropriately) Results Lab Laboratory Tests 06/27/18 04:00 06/28/18 03:35 Assessment/Plan Assessment/Plan Severe sepsis UTI with Ecoli -Change Zosyn to Fartun COPD -SVNS -Oxygen and monitor TSAH JACKSON DO Jun 28, 2018 06:45
[2018-06-28] MEDS: cefTRIAXone FOR IV USE 1,000 MG in WATER (STERILE) FOR INJECTION 10 ML IV SCH (07:45)
[2018-06-28] MEDS: PROPRANOLOL 20 MG (INDERAL) TABLET PO SCH ×3 (07:46→21:35)
[2018-06-28] MEDS: BENZTROPINE MESYLATE 1 MG (COGENTIN) TAB PO SCH ×3 (07:46→21:36)
[2018-06-28] MEDS: OLANZapine 5 MG (ZyPREXA) TAB PO SCH ×4 (07:46→21:35)
[2018-06-28] MEDS: clonazePAM 0.5 MG (KlonoPIN) TAB PO SCH ×2 (07:46→21:35)
[2018-06-28] MEDS: ASPIRIN E.C. 81 MG (ECOTRIN) TAB PO SCH ×2 (07:46→07:47)
[2018-06-28] MEDS: ACETAMINOPHEN 500 MG TAB (TYLENOL) PO PRN ×3 (07:46→17:47)
[2018-06-28] MEDS: POLYETHYLENE GLYCOL 17 GM (MIRALAX) PACK PO SCH (07:47)
[2018-06-28 08:00] VITALS: BP 135/78
[2018-06-28] MEDS ORDERED: NON-FORMULARY MEDICATION 1 EA EA (Cariprazine Hydrochloride (Vraylar) 3 MG) PO SCH (09:00)
--- NOTE | 2018-06-28 11:18 | Progress Note-Hospitalist ---
Subjective HPI/CC On Admission Date Seen by Provider: Jun 28, 2018 Time Seen by Provider: 09:00 Subjective/Events-last exam Patient doing much better today Labs reviewed and now white count is normal for the first time since admission Friend is at the bedside Patient sitting in a chair Overall feels like he is much improved Tremors continue and I restarted all of his home medications yesterday including psych meds and tremor meds Eating and drinking well Review of Systems General: Fatigue Focused Exam Time of Focused Exam: 11:25 Objective Exam Vital Signs Vital Signs Date Time Temp Pulse Resp B/P (MAP) Pulse Ox O2 Delivery O2 Flow Rate FiO2 06/28/18 13:47 75 93 24 06/28/18 12:00 98.6 22 118/70 (86) Nasal Cannula 2.00 Capillary Refill : Less Than 3 Seconds General Appearance: No Apparent Distress, WD/WN, Chronically ill HEENT: Normal ENT Inspection Neck: Full Range of Motion, Normal Inspection, Non Tender, Supple Respiratory: Chest Non Tender, Lungs Clear, Normal Breath Sounds, No Accessory Muscle Use, No Respiratory Distress, Decreased Breath Sounds Cardiovascular: Regular Rate, Rhythm, No Murmur Gastrointestinal: Non Tender, Soft Extremity: Normal Inspection, Non Tender, No Calf Tenderness, No Pedal Edema, Other (negative Semaj) Neurologic/Psychiatric: Alert, Motor Weakness (generalized), Other ( generalized weakness. Affect flat. Speech slurred. Answers questions appropriately) Results/Procedures Lab Laboratory Tests 06/28/18 03:35 Patient resulted labs reviewed. Assessment/Plan Assessment and Plan Assess & Plan/Chief Complaint Assessment: Severe sepsis-resolved Persistent fevers- now more low grade UTI on Zosyn AECOPD Electrolyte abnl Leukocytosis- resolved Plan: IS Nebs O2 Abx PT Home meds restarted after review Diagnosis/Problems Diagnosis/Problems (1) Severe sepsis Status: Acute (2) Tremor Status: Chronic (3) COPD exacerbation Status: Acute (4) Hypoxia Status: Acute (5) Urinary tract infection Status: Acute Qualifiers: Urinary tract infection type: site unspecified Hematuria presence: without hematuria Qualified Codes: N39.0 - Urinary tract infection, site not specified (6) Elevated liver enzymes Status: Acute (7) Bipolar disorder Status: Chronic Qualifiers: Active/Remission status: remission status unspecified Qualified Codes: F31.9 - Bipolar disorder, unspecified (8) Muscle atrophy Status: Chronic (9) Muscle weakness Status: Chronic (10) Schizophrenia Status: Chronic Qualifiers: Schizophrenia type: unspecified Qualified Codes: F20.9 - Schizophrenia, unspecified (11) Depression (12) Fever Status: Acute Qualifiers: Fever type: unspecified Qualified Codes: R50.9 - Fever, unspecified (13) Atelectasis Status: Acute (14) Leukocytosis Status: Acute Qualifiers: Leukocytosis type: leukemoid reaction Qualified Codes: D72.823 - Leukemoid reaction (15) Hypokalemia Status: Acute (16) Extrapyramidal and movement disorder Status: Chronic Clinical Quality Measures AMI/AHF: ASA po Prior to arrival: Yes (BY EMS) DVT/VTE Risk/Contraindication: Risk Factor Score Per Nursin RFS Level Per Nursing on Admit: 4+=Very High ADRIANA CRUZ DO Jun 28, 2018 11:17
[2018-06-28 12:00] VITALS: BP 118/70
--- NOTE | 2018-06-28 14:10 | Cardiology Progress Note ---
Cardiology SOAP Progress Note Subjective: No cardiac complaints. Objective: I&O/Vital Signs 06/28/18 06/28/18 06/28/18 06/28/18 04:11 06:47 08:00 09:00 Temp 100.2 100.5 Pulse 80 83 Resp 16 18 B/P (MAP) 126/75 (92) 135/78 (97) Pulse Ox 94 92 92 O2 Delivery Nasal Cannula Nasal Cannula Nasal Cannula Nasal Cannula O2 Flow Rate 2.00 1.00 2.00 2.00 06/28/18 06/28/18 12:00 13:47 Temp 98.6 Pulse 75 75 Resp 22 B/P (MAP) 118/70 (86) Pulse Ox 93 93 O2 Delivery Nasal Cannula O2 Flow Rate 2.00 FiO2 24 06/28/18 00:00 Intake Total 1220 ml Output Total 1790 ml Balance -570 ml Weight (Pounds): 245 Weight (Ounces): 4.8 Weight (Calculated Kilograms): 111.881500 Constitutional: appears stated age; No apparent distress; well-developed, well- nourished Respiratory: No accessory muscle use, No respiratory distress, No chest tender , No chest expansion is symmetric; chest is bilaterally symmetric; No lungs clear to percussion; lungs clear to auscultation; No crackles, No rhonchi, No rales, No stridor, No wheezing, No pleural rub, No other Cardiovascular: regular rate-rhythm; No irregularly irregular, No extra beats, No parasternal heave is noted, No JVD, No edema, No bradycardia, No tachycardia , No point of maximal impulse, No cardiac thrills are palpable; S1 and S2; No gallop/S3, No gallop/S4, No diastolic murmur, No systolic murmur, No friction rub, No click, No other Gastrointestional: No tender, No soft, No round, No distended, No pulsatile mass, No organomegaly, No guarding, No rebound, No tenderness, No hernia, No mass, No audible bowel sounds, No abnormal bowel sounds, No abdominal bruits, No spleenomegaly, No other Extremities: No normal range of motion, No non-tender, No normal inspection, No pedal edema, No calf tenderness, No normal capillary refill, No pelvis stable , No calf tenderness, No inflammation, No pedal edema, No slow capillary refill , No swelling, No other, No abrasion, No clubbing, No cyanosis, No ecchymosis, No laceration, No no lower extremity edema bilateral, No significant edema, No tenderness, No wound Neurologic/Psychiatric: no motor/sensory deficits, alert, normal mood/affect, power is 5/5 both on sides Skin: normal color, warm/dry Results/Procedures: Labs Laboratory Tests 06/28/18 03:35: White Blood Count 10.3, Red Blood Count 4.14L, Hemoglobin 13.3, Hematocrit 40, Mean Corpuscular Volume 97, Mean Corpuscular Hemoglobin 32, Mean Corpuscular Hemoglobin Concent 33, Red Cell Distribution Width 13.3, Platelet Count 123L, Mean Platelet Volume 10.8H, Neutrophils (%) (Auto) 70, Lymphocytes (%) (Auto) 16 , Monocytes (%) (Auto) 12, Eosinophils (%) (Auto) 1, Basophils (%) (Auto) 0, Neutrophils # (Auto) 7.2, Lymphocytes # (Auto) 1.7, Monocytes # (Auto) 1.2H, Eosinophils # (Auto) 0.1, Basophils # (Auto) 0.0, Sodium Level 138, Potassium Level 3.7, Chloride Level 110H, Carbon Dioxide Level 22, Anion Gap 6, Blood Urea Nitrogen 14, Creatinine 0.76, Estimat Glomerular Filtration Rate > 60, BUN/ Creatinine Ratio 18, Glucose Level 121H, Calcium Level 8.3L, Phosphorus Level 2.0L, Magnesium Level 1.8 Microbiology 06/25/18 Blood Culture - Preliminary, Resulted No growth 06/25/18 MRSA Screen - Final, Complete MRSA not isolated 06/25/18 Urine Culture - Final, Complete Escherichia coli A/P: Assessment/Dx: Severe sepsis, UTI, COPD, Chest pain Plan: Severe sepsis: Aggressive IV fluids, IV antibiotics, deferred to the primary team and Dr. Pardo. Improved gradually. UTI with Escherichia coli. Currently on Rocephin. COPD: On duoneb inhalation. Chest pain: Serial troponin negative. Echocardiogram. Patient may require a nuclear stress test to rule out ischemia. Thank you for your consultation. Please call me if you have any questions. John Ballesteros MD, FACP, FACC, FSCAI, FHRS, CCDS Interventional Cardiology Cardiac Electrophysiology Vascular Medicine and Endovascular Interventions Focused Exam Time of Focused Exam: 11:25 Clinical Quality Measures AMI/AHF: ASA po Prior to arrival: Yes (BY EMS) Velma BALLESTEROS MD Jun 28, 2018 2:10 pm
[2018-06-28 16:00] VITALS: BP 130/69
[2018-06-28 20:00] VITALS: BP 111/68
[2018-06-28] MEDS: SENNA W/DOCUSATE (SENOKOT S) TABLET PO SCH (21:35)
[2018-06-28] MEDS: MELATONIN 3 MG TABLET PO SCH (21:35)
[2018-06-29 00:19] VITALS: BP 122/70
[2018-06-29] MEDS: RT-ALBUTEROL/IPRATROPIUM 3 ML (DUONEB) VIAL INH SCH (02:21)
[2018-06-29 04:00] VITALS: BP 133/77
[2018-06-29 06:35] LABS: BASOPHILS % (AUTO) 0 % (0-10); EOSINOPHILS # (AUTO) 0.2 10^3/uL (0.0-0.3); EOSINOPHILS % (AUTO) 3 % (0-10); HEMATOCRIT 42 % (40-54); HEMOGLOBIN 13.6 G/DL (13.3-17.7); LYMPHOCYTES # (AUTO) 2.1 X 10^3 (1.0-4.0); LYMPHOCYTES % (AUTO) 24 % (12-44); MEAN CORPUSCULAR HEMOGLOBIN 32 PG (25-34); MEAN CORPUSCULAR HGB CONC 33 G/DL (32-36); MEAN CORPUSCULAR VOLUME 98 FL (80-99); MEAN PLATELET VOLUME 10.2 FL (7.4-10.4); MONOCYTES % (AUTO) 12 % (0-12); NEUTROPHILS # (AUTO) 5.2 X 10^3 (1.8-7.8); NEUTROPHILS % (AUTO) 61 % (42-75); PLATELET COUNT 149 10^3/uL (130-400); RED CELL DISTRIBUTION WIDTH 13.5 % (10.0-14.5); WHITE BLOOD COUNT 8.6 10^3/uL (4.3-11.0)
[2018-06-29] MEDS: cefTRIAXone FOR IV USE 1,000 MG in WATER (STERILE) FOR INJECTION 10 ML IV SCH (06:41)
[2018-06-29 06:57] LABS: ALANINE AMINOTRANSFERASE 50 U/L (0-55); ALKALINE PHOSPHATASE 77 U/L (40-136); BILIRUBIN,TOTAL 0.5 MG/DL (0.1-1.0); BUN/CREATININE RATIO 16; CALCIUM 8.6 MG/DL (8.5-10.1); CARBON DIOXIDE 22 MMOL/L (21-32); CHLORIDE 109 MMOL/L (98-107); GFR ESTIMATED > 60; GLUCOSE 110 MG/DL (70-105); POTASSIUM 3.8 MMOL/L (3.6-5.0); SODIUM 140 MMOL/L (135-145); TOTAL PROTEIN 6.5 GM/DL (6.4-8.2)
[2018-06-29 08:00] VITALS: BP 120/57
--- NOTE | 2018-06-29 08:00 | Progress Note (SOAP) ---
Subjective Time Seen by a Provider: 07:57 Subjective/Events-last exam Patient feeling better today. Patient would like to go back to retirement. Patient voices no complaints. To recheck UA this morning Focused Exam Time of Focused Exam: 11:25 Objective Exam Vital Signs Date Time Temp Pulse Resp B/P (MAP) Pulse Ox O2 Delivery O2 Flow Rate FiO2 06/29/18 04:00 99.2 66 18 133/77 (95) 94 06/29/18 02:21 92 Nasal Cannula 1.00 06/29/18 00:19 97.7 68 18 122/70 (87) 95 Nasal Cannula 1.00 06/28/18 21:01 93 Nasal Cannula 1.00 06/28/18 21:00 Nasal Cannula 1.00 06/28/18 20:00 98.5 73 20 111/68 (82) 95 Nasal Cannula 1.00 06/28/18 16:00 99.6 80 18 130/69 (89) 94 Nasal Cannula 1.00 06/28/18 13:47 75 93 24 06/28/18 12:00 98.6 75 22 118/70 (86) 93 Nasal Cannula 2.00 06/28/18 09:00 Nasal Cannula 2.00 06/28/18 08:00 100.5 83 18 135/78 (97) 92 Nasal Cannula 2.00 I & O 06/29/18 07:00 Intake Total 2690 ml Balance 2690 ml Capillary Refill : Less Than 3 Seconds General Appearance: No Apparent Distress, WD/WN HEENT: Normal ENT Inspection Neck: Normal Inspection Respiratory: Lungs Clear, No Accessory Muscle Use, No Respiratory Distress, Decreased Breath Sounds, Other (Patient on oxygen COPD) Cardiovascular: Regular Rate, Rhythm, No Murmur Gastrointestinal: non tender, soft Results Lab Laboratory Tests 06/29/18 06:05 Laboratory Tests 06/29/18 06:05: White Blood Count 8.6, Red Blood Count 4.26L, Hemoglobin 13.6, Hematocrit 42, Mean Corpuscular Volume 98, Mean Corpuscular Hemoglobin 32, Mean Corpuscular Hemoglobin Concent 33, Red Cell Distribution Width 13.5, Platelet Count 149, Mean Platelet Volume 10.2, Neutrophils (%) (Auto) 61, Lymphocytes (%) (Auto) 24 , Monocytes (%) (Auto) 12, Eosinophils (%) (Auto) 3, Basophils (%) (Auto) 0, Neutrophils # (Auto) 5.2, Lymphocytes # (Auto) 2.1, Monocytes # (Auto) 1.0, Eosinophils # (Auto) 0.2, Basophils # (Auto) 0.0, Sodium Level 140, Potassium Level 3.8, Chloride Level 109H, Carbon Dioxide Level 22, Anion Gap 9, Blood Urea Nitrogen 11, Creatinine 0.70, Estimat Glomerular Filtration Rate > 60, BUN/ Creatinine Ratio 16, Glucose Level 110H, Calcium Level 8.6, Corrected Calcium 9.4, Total Bilirubin 0.5, Aspartate Amino Transf (AST/SGOT) 39H, Alanine Aminotransferase (ALT/SGPT) 50, Alkaline Phosphatase 77, Total Protein 6.5, Albumin 3.0L Microbiology 06/25/18 Blood Culture - Preliminary, Resulted No growth 06/25/18 MRSA Screen - Final, Complete MRSA not isolated 06/25/18 Urine Culture - Final, Complete Escherichia coli Assessment/Plan Assessment/Plan Assess & Plan/Chief Complaint Sepsis. UTI. COPD. Thrombocytopenia. Chest pain resolved. . 06/29/18. Sepsis. UTI. COPD. Chest pain. Bipolar. Schizoaffective. Leukocytosis. EPS. Tremors Clinical Quality Measures Admission Status Admission Dx Febrile. UTI. Chest pain. Thrombocytopenia. Sepsis. Hypotension. Psychiatric problem. EPS extrapyramidal symptoms AMI/AHF: ASA po Prior to arrival: Yes (BY EMS) DVT/VTE Risk/Contraindication: Risk Factor Score Per Nursin RFS Level Per Nursing on Admit: 4+=Very High TANI CRAFT DO Jun 29, 2018 08:00
--- NOTE | 2018-06-29 08:03 | Discharge Inst-Skilled Nursing ---
Discharge Inst-Skilled NF Patient Instructions Patient Instructions: 2 office this at 11 a.m. Consult/Follow Up/Orders Skilled NF Admit to: [facility] Certification (SNF) I certify that SNF services are required to be given on an inpatient basis because of the above named patient's need for long term care on a continuing basis for the conditions(s) for which he/she was receiving inpatient hospital services prior to his/her transfer to the SNF. Oxygen Delivery Method: Nasal Cannula Discharge Diet: Regular Diet New & Resume Previous Orders Mikie Craft Jun 29, 2018 08:02 MIKIE CRAFT DO Jun 29, 2018 08:03
[2018-06-29] MEDS: ASPIRIN E.C. 81 MG (ECOTRIN) TAB PO SCH ×2 (09:04)
[2018-06-29] MEDS: BENZTROPINE MESYLATE 1 MG (COGENTIN) TAB PO SCH ×2 (09:04→13:11)
[2018-06-29] MEDS: POLYETHYLENE GLYCOL 17 GM (MIRALAX) PACK PO SCH (09:04)
[2018-06-29] MEDS: OLANZapine 5 MG (ZyPREXA) TAB PO SCH ×2 (09:06→13:11)
[2018-06-29] MEDS: PROPRANOLOL 20 MG (INDERAL) TABLET PO SCH ×2 (09:06→13:11)
[2018-06-29] MEDS: clonazePAM 0.5 MG (KlonoPIN) TAB PO SCH (09:06)
--- NOTE | 2018-06-29 10:18 | Pulmonary Progress Note ---
Subjective Time Seen by a Provider: 10:17 Subjective/Events-last exam Pt appears to be doing better. Sepsis Event Evaluation Height, Weight, BMI Height: 5'9.00" Weight: 250lbs. 4.8oz. [id number]; 35.0 BMI Method:Stated Focused Exam Time of Focused Exam: 11:25 Exam Exam Vital Signs Date Time Temp Pulse Resp B/P (MAP) Pulse Ox O2 Delivery O2 Flow Rate FiO2 06/29/18 08:00 97.9 68 16 120/57 (78) 94 Nasal Cannula 2.00 06/29/18 04:00 99.2 66 18 133/77 (95) 94 06/29/18 02:21 92 Nasal Cannula 1.00 06/29/18 00:19 97.7 68 18 122/70 (87) 95 Nasal Cannula 1.00 06/28/18 21:01 93 Nasal Cannula 1.00 06/28/18 21:00 Nasal Cannula 1.00 06/28/18 20:00 98.5 73 20 111/68 (82) 95 Nasal Cannula 1.00 06/28/18 16:00 99.6 80 18 130/69 (89) 94 Nasal Cannula 1.00 06/28/18 13:47 75 93 24 06/28/18 12:00 98.6 75 22 118/70 (86) 93 Nasal Cannula 2.00 I & O 06/29/18 06:59 Intake Total 2690 ml Balance 2690 ml Height & Weight Height: 5'9.00" Weight: 250lbs. 4.8oz. [id number]; 35.0 BMI Method:Stated General Appearance: No Apparent Distress, WD/WN HEENT: Normal ENT Inspection Neck: Normal Inspection Respiratory: Lungs Clear, No Accessory Muscle Use, No Respiratory Distress, Decreased Breath Sounds, Other (Patient on oxygen COPD) Cardiovascular: Regular Rate, Rhythm, No Murmur Capillary Refill: Less Than 3 Seconds Peripheral Pulses: 2+ Radial Pulses (R) Gastrointestinal: non tender, soft Extremity: Normal Inspection, Non Tender, No Calf Tenderness, No Pedal Edema, Other (negative Semaj) Neurologic/Psychiatric: Alert, Motor Weakness (generalized), Other ( generalized weakness. Affect flat. Speech slurred. Answers questions appropriately) Results Lab Laboratory Tests 06/28/18 03:35 06/29/18 06:05 Assessment/Plan Assessment/Plan Severe sepsis -- much improved UTI with Ecoli -Rocephin COPDAE -SVNS -Oxygen and monitor Atelectasis -Increase activity PT is doing better TASH JACKSON DO Jun 29, 2018 10:18
[2018-06-29 10:51] LABS: BILIRUBIN,URINE NEGATIVE (NEGATIVE); CLARITY,URINE CLEAR; COLOR,URINE YELLOW; GLUCOSE, URINE (UA) NEGATIVE (NEGATIVE); KETONES,URINE NEGATIVE (NEGATIVE); LEUKOCYTE ESTERASE ,URINE 1+ (NEGATIVE); NITRITE,URINE NEGATIVE (NEGATIVE); PH,URINE 6 (5-9); PROTEIN,URINE NEGATIVE (NEGATIVE); UROBILINOGEN,URINE 1 MG/DL (NORMAL)
[2018-06-29 11:12] LABS: BACTERIA,URINE NEGATIVE /HPF; WBC,URINE 0-2 /HPF
[2018-06-29 12:00] VITALS: BP 130/74
--- NOTE | 2018-06-29 12:46 | NUR ---
DISCHARGE PLANNING: Patient is discharged today back to his [facility] [place] [facility] [place]. I have spoken to Kelsie and MICHAEL and have a tentative pickle solution maker time of 3 pm and they are to bring a wheelchair and O2. Her nurse is aware of the pickle solution maker time and that she needs to get in touch with Dr. Ballesteros to see if there are any things he would like added to the discharge orders. I have faxed unfinalized orders and clinical information to . Addendum: 06/29/18 at 1256 by ZULMA CASSIDY RN This RN did make Kelsie at aware that Dr. Gross did place skilled orders but then did not order PT/OT.
--- NOTE | 2018-06-29 14:20 | Cardiology Progress Note ---
Cardiology SOAP Progress Note Subjective: No chest pain. Objective: I&O/Vital Signs 06/29/18 06/29/18 06/29/18 06/29/18 02:21 04:00 08:00 09:00 Temp 99.2 97.9 Pulse 66 68 Resp 18 16 B/P (MAP) 133/77 (95) 120/57 (78) Pulse Ox 92 94 94 O2 Delivery Nasal Cannula Nasal Cannula Nasal Cannula O2 Flow Rate 1.00 2.00 1.00 06/29/18 12:00 Temp 98.4 Pulse 59 Resp 18 B/P (MAP) 130/74 (92) Pulse Ox 95 O2 Delivery Nasal Cannula O2 Flow Rate 2.00 06/29/18 00:00 Intake Total 2020 ml Balance 2020 ml Weight (Pounds): 250 Weight (Ounces): 4.8 Weight (Calculated Kilograms): [id number] Constitutional: appears stated age; No apparent distress; well-developed, well- nourished Respiratory: No accessory muscle use, No respiratory distress, No chest tender , No chest expansion is symmetric; chest is bilaterally symmetric; No lungs clear to percussion; lungs clear to auscultation; No crackles, No rhonchi, No rales, No stridor, No wheezing, No pleural rub, No other Cardiovascular: regular rate-rhythm; No irregularly irregular, No extra beats, No parasternal heave is noted, No JVD, No edema, No bradycardia, No tachycardia , No point of maximal impulse, No cardiac thrills are palpable; S1 and S2; No gallop/S3, No gallop/S4, No diastolic murmur, No systolic murmur, No friction rub, No click, No other Gastrointestional: No tender, No soft, No round, No distended, No pulsatile mass, No organomegaly, No guarding, No rebound, No tenderness, No hernia, No mass, No audible bowel sounds, No abnormal bowel sounds, No abdominal bruits, No spleenomegaly, No other Extremities: No normal range of motion, No non-tender, No normal inspection, No pedal edema, No calf tenderness, No normal capillary refill, No pelvis stable , No calf tenderness, No inflammation, No pedal edema, No slow capillary refill , No swelling, No other, No abrasion, No clubbing, No cyanosis, No ecchymosis, No laceration, No no lower extremity edema bilateral, No significant edema, No tenderness, No wound Neurologic/Psychiatric: no motor/sensory deficits, alert, normal mood/affect, power is 5/5 both on sides Skin: normal color, warm/dry Results/Procedures: Labs Laboratory Tests 06/29/18 06:05: White Blood Count 8.6, Red Blood Count 4.26L, Hemoglobin 13.6, Hematocrit 42, Mean Corpuscular Volume 98, Mean Corpuscular Hemoglobin 32, Mean Corpuscular Hemoglobin Concent 33, Red Cell Distribution Width 13.5, Platelet Count 149, Mean Platelet Volume 10.2, Neutrophils (%) (Auto) 61, Lymphocytes (%) (Auto) 24 , Monocytes (%) (Auto) 12, Eosinophils (%) (Auto) 3, Basophils (%) (Auto) 0, Neutrophils # (Auto) 5.2, Lymphocytes # (Auto) 2.1, Monocytes # (Auto) 1.0, Eosinophils # (Auto) 0.2, Basophils # (Auto) 0.0, Sodium Level 140, Potassium Level 3.8, Chloride Level 109H, Carbon Dioxide Level 22, Anion Gap 9, Blood Urea Nitrogen 11, Creatinine 0.70, Estimat Glomerular Filtration Rate > 60, BUN/ Creatinine Ratio 16, Glucose Level 110H, Calcium Level 8.6, Corrected Calcium 9.4, Total Bilirubin 0.5, Aspartate Amino Transf (AST/SGOT) 39H, Alanine Aminotransferase (ALT/SGPT) 50, Alkaline Phosphatase 77, Total Protein 6.5, Albumin 3.0L 06/29/18 09:23: Urine Color YELLOW, Urine Clarity CLEAR, Urine pH 6, Urine Specific [place] 1.010L, Urine Protein NEGATIVE, Urine Glucose (UA) NEGATIVE, Urine Ketones NEGATIVE, Urine Nitrite NEGATIVE, Urine Bilirubin NEGATIVE, Urine Urobilinogen 1 , Urine Leukocyte Esterase 1+H, Urine RBC (Auto) NEGATIVE, Urine RBC NONE, Urine WBC 0-2, Urine Squamous Epithelial Cells NONE, Urine Crystals NONE, Urine Bacteria NEGATIVE, Urine Casts NONE, Urine Mucus NEGATIVE, Urine Culture Indicated NO Microbiology 06/25/18 Blood Culture - Preliminary, Resulted No growth 06/25/18 MRSA Screen - Final, Complete MRSA not isolated 06/25/18 Urine Culture - Final, Complete Escherichia coli A/P: Assessment/Dx: Severe sepsis, UTI, COPD, Chest pain Plan: Severe sepsis: Aggressive IV fluids, IV antibiotics, deferred to the primary team and Dr. Pardo. Improved gradually. UTI with Escherichia coli. Currently on Rocephin. COPD: On duoneb inhalation. Chest pain: Serial troponin negative. Echocardiogram. Patient may require a nuclear stress test to rule out ischemia. Can be done as an outpatient. Thank you for your consultation. Please call me if you have any questions. John Ballesteros MD, FACP, FACC, FSCAI, FHRS, CCDS Interventional Cardiology Cardiac Electrophysiology Vascular Medicine and Endovascular Interventions Focused Exam Time of Focused Exam: 11:25 Clinical Quality Measures AMI/AHF: ASA po Prior to arrival: Yes (BY EMS) Velma BALLESTEROS MD Jun 29, 2018 2:20 pm
--- NOTE | 2018-06-30 07:37 | Discharge Summary ---
Diagnosis/Chief Complaint Date of Admission Jun 25, 2018 at 11:39 Date of Discharge Jun 29, 2018 at 15:00 Discharge Time: 07:35 Discharge Diagnosis Abscess. UTI. COPD. Hypotension. Chest pain. Bipolar. Leukocytosis. Thrombocytopenia. Elevated liver tests. Febrile. EPS. Reason Hospital Visit Skin resident of medical [place] [facility] [place]. Ration them longterm. Patient had elevated temperature of 101 and chest pain. Patient has EPS. Patient has a history of COPD and psychiatric problems. Patient has shaking with his hands. Patient has UTI. Patient hypotension. Patient meets criteria for sepsis.. Patient had chest pain in the middle of his chest Discharge Summary Consultations Pulmonology. Cardiology. Discharge Physical Examination Allergies: Coded Allergies: codeine (Verified Allergy, Unknown, 06/25/18) Vitals & I&Os Vital Signs Date Time Temp Pulse Resp B/P (MAP) Pulse Ox O2 Delivery O2 Flow Rate FiO2 06/29/18 15:59 06/29/18 12:00 98.4 59 18 95 Nasal Cannula 2.00 06/28/18 13:47 24 Hospital Course Patient on discharge doing good. Patient transferred back to longterm Labs (last 24 hrs) Laboratory Tests 06/25/18 09:30: White Blood Count 14.9H, Red Blood Count 4.35, Hemoglobin 14.4, Hematocrit 42, Mean Corpuscular Volume 97, Mean Corpuscular Hemoglobin 33, Mean Corpuscular Hemoglobin Concent 34, Red Cell Distribution Width 13.1, Platelet Count 125L, Mean Platelet Volume 10.4, Neutrophils (%) (Auto) 77H, Lymphocytes (%) (Auto) 17 , Monocytes (%) (Auto) 6, Eosinophils (%) (Auto) 0, Basophils (%) (Auto) 0, Neutrophils # (Auto) 11.5H, Lymphocytes # (Auto) 2.5, Monocytes # (Auto) 0.9, Eosinophils # (Auto) 0.0, Basophils # (Auto) 0.0, Neutrophils % (Manual) 80, Lymphocytes % (Manual) 13, Monocytes % (Manual) 7, Blood Morphology Comment NORMAL, Prothrombin Time 15.4H, INR Comment 1.2, Activated Partial Thromboplast Time 31, Sodium Level 137, Potassium Level 3.7, Chloride Level 103, Carbon Dioxide Level 27, Anion Gap 7, Blood Urea Nitrogen 12, Creatinine 0.93, Estimat Glomerular Filtration Rate > 60, BUN/Creatinine Ratio 13, Glucose Level 200H, Lactic Acid Level 1.66, Calcium Level 8.8, Corrected Calcium 9.2, Magnesium Level 1.9, Total Bilirubin 1.3H, Aspartate Amino Transf (AST/SGOT) 50H, Alanine Aminotransferase (ALT/SGPT) 95H, Alkaline Phosphatase 96, Myoglobin 79.1, Troponin I < 0.028, C-Reactive Protein High Sensitivity 2.54H, B-Type Natriuretic Peptide 22.6, Total Protein 6.8, Albumin 3.5 06/25/18 10:42: Urine Color AMBERH, Urine Clarity CLEAR, Urine pH 7, Urine Specific [place] 1.010L, Urine Protein 2+H, Urine Glucose (UA) NEGATIVE, Urine Ketones NEGATIVE, Urine Nitrite POSITIVEH, Urine Bilirubin NEGATIVE, Urine Urobilinogen 8H, Urine Leukocyte Esterase 3+H, Urine RBC (Auto) 5+H, Urine RBC 50-100H, Urine WBC 25- 50H, Urine Squamous Epithelial Cells NONE, Urine Crystals NONE, Urine Bacteria LARGEH, Urine Casts NONE, Urine Mucus NEGATIVE, Urine Culture Indicated CULTURE PENDING 06/25/18 16:39: Troponin I < 0.028 06/26/18 03:15: White Blood Count 16.6H, Red Blood Count 4.29L, Hemoglobin 13.9, Hematocrit 42, Mean Corpuscular Volume 97, Mean Corpuscular Hemoglobin 32, Mean Corpuscular Hemoglobin Concent 33, Red Cell Distribution Width 13.2, Platelet Count 98L, Mean Platelet Volume 10.7H, Neutrophils (%) (Auto) 76H, Lymphocytes (%) (Auto) 16, Monocytes (%) (Auto) 8, Eosinophils (%) (Auto) 0, Basophils (%) (Auto) 0, Neutrophils # (Auto) 12.7H, Lymphocytes # (Auto) 2.6, Monocytes # (Auto) 1.3H, Eosinophils # (Auto) 0.0, Basophils # (Auto) 0.0, Sodium Level 138, Potassium Level 4.0, Chloride Level 109H, Carbon Dioxide Level 20L, Anion Gap 9, Blood Urea Nitrogen 9, Creatinine 0.79, Estimat Glomerular Filtration Rate > 60, BUN/ Creatinine Ratio 11, Glucose Level 111H, Calcium Level 7.7L, Corrected Calcium 8.5, Magnesium Level 1.5L, Total Bilirubin 1.6H, Aspartate Amino Transf (AST/ SGOT) 39H, Alanine Aminotransferase (ALT/SGPT) 72H, Alkaline Phosphatase 80, Total Protein 6.1L, Albumin 3.0L, Phosphorus Level 2.0L, Triglycerides Level 87 , Cholesterol Level 88, LDL Cholesterol Direct 55, VLDL Cholesterol 17, HDL Cholesterol 19L 06/26/18 12:04: B-Type Natriuretic Peptide 141.2H 06/27/18 04:00: White Blood Count 12.4H, Red Blood Count 4.12L, Hemoglobin 13.2L, Hematocrit 40 , Mean Corpuscular Volume 96, Mean Corpuscular Hemoglobin 32, Mean Corpuscular Hemoglobin Concent 33, Red Cell Distribution Width 13.3, Platelet Count 113L, Mean Platelet Volume 10.4, Neutrophils (%) (Auto) 77H, Lymphocytes (%) (Auto) 15 , Monocytes (%) (Auto) 8, Eosinophils (%) (Auto) 0, Basophils (%) (Auto) 0, Neutrophils # (Auto) 9.5H, Lymphocytes # (Auto) 1.9, Monocytes # (Auto) 1.0, Eosinophils # (Auto) 0.0, Basophils # (Auto) 0.0, Sodium Level 137, Potassium Level 3.5L, Chloride Level 108H, Carbon Dioxide Level 21, Anion Gap 8, Blood Urea Nitrogen 13, Creatinine 0.86, Estimat Glomerular Filtration Rate > 60, BUN/ Creatinine Ratio 15, Glucose Level 139H, Calcium Level 7.9L, Phosphorus Level 1.9L, Magnesium Level 2.0 06/28/18 03:35: White Blood Count 10.3, Red Blood Count 4.14L, Hemoglobin 13.3, Hematocrit 40, Mean Corpuscular Volume 97, Mean Corpuscular Hemoglobin 32, Mean Corpuscular Hemoglobin Concent 33, Red Cell Distribution Width 13.3, Platelet Count 123L, Mean Platelet Volume 10.8H, Neutrophils (%) (Auto) 70, Lymphocytes (%) (Auto) 16 , Monocytes (%) (Auto) 12, Eosinophils (%) (Auto) 1, Basophils (%) (Auto) 0, Neutrophils # (Auto) 7.2, Lymphocytes # (Auto) 1.7, Monocytes # (Auto) 1.2H, Eosinophils # (Auto) 0.1, Basophils # (Auto) 0.0, Sodium Level 138, Potassium Level 3.7, Chloride Level 110H, Carbon Dioxide Level 22, Anion Gap 6, Blood Urea Nitrogen 14, Creatinine 0.76, Estimat Glomerular Filtration Rate > 60, BUN/ Creatinine Ratio 18, Glucose Level 121H, Calcium Level 8.3L, Phosphorus Level 2.0L, Magnesium Level 1.8 06/29/18 06:05: White Blood Count 8.6, Red Blood Count 4.26L, Hemoglobin 13.6, Hematocrit 42, Mean Corpuscular Volume 98, Mean Corpuscular Hemoglobin 32, Mean Corpuscular Hemoglobin Concent 33, Red Cell Distribution Width 13.5, Platelet Count 149, Mean Platelet Volume 10.2, Neutrophils (%) (Auto) 61, Lymphocytes (%) (Auto) 24 , Monocytes (%) (Auto) 12, Eosinophils (%) (Auto) 3, Basophils (%) (Auto) 0, Neutrophils # (Auto) 5.2, Lymphocytes # (Auto) 2.1, Monocytes # (Auto) 1.0, Eosinophils # (Auto) 0.2, Basophils # (Auto) 0.0, Sodium Level 140, Potassium Level 3.8, Chloride Level 109H, Carbon Dioxide Level 22, Anion Gap 9, Blood Urea Nitrogen 11, Creatinine 0.70, Estimat Glomerular Filtration Rate > 60, BUN/ Creatinine Ratio 16, Glucose Level 110H, Calcium Level 8.6, Corrected Calcium 9.4, Total Bilirubin 0.5, Aspartate Amino Transf (AST/SGOT) 39H, Alanine Aminotransferase (ALT/SGPT) 50, Alkaline Phosphatase 77, Total Protein 6.5, Albumin 3.0L 06/29/18 09:23: Urine Color YELLOW, Urine Clarity CLEAR, Urine pH 6, Urine Specific [place] 1.010L, Urine Protein NEGATIVE, Urine Glucose (UA) NEGATIVE, Urine Ketones NEGATIVE, Urine Nitrite NEGATIVE, Urine Bilirubin NEGATIVE, Urine Urobilinogen 1 , Urine Leukocyte Esterase 1+H, Urine RBC (Auto) NEGATIVE, Urine RBC NONE, Urine WBC 0-2, Urine Squamous Epithelial Cells NONE, Urine Crystals NONE, Urine Bacteria NEGATIVE, Urine Casts NONE, Urine Mucus NEGATIVE, Urine Culture Indicated NO Microbiology 06/25/18 Blood Culture - Preliminary, Resulted No growth 06/25/18 MRSA Screen - Final, Complete MRSA not isolated 06/25/18 Urine Culture - Final, Complete Escherichia coli Laboratory Tests 06/25/18 09:30 06/26/18 03:15 06/27/18 04:00 06/28/18 03:35 06/29/18 06:05 Pending Labs Microbiology Date/Time Source Procedure Growth Status 06/25/18 09:55 Peripheral Arm, Right Blood Culture - Preliminary No growth Resulted 06/25/18 09:30 Peripheral Lt Hand Blood Culture - Preliminary No growth Resulted 06/25/18 12:20 Nasal MRSA Screen - Final MRSA not isolated Complete 06/25/18 09:20 Nasopharynx Influenza Types A,B Antigen (GADIEL) - Final Complete 06/25/18 10:42 Urine Straight Cath, In/Out Urine Culture - Final Escherichia coli Complete Laboratory Tests 06/25/18 09:30: White Blood Count 14.9, Red Blood Count 4.35, Hemoglobin 14.4, Hematocrit 42, Mean Corpuscular Volume 97, Mean Corpuscular Hemoglobin 33, Mean Corpuscular Hemoglobin Concent 34, Red Cell Distribution Width 13.1, Platelet Count 125, Mean Platelet Volume 10.4, Neutrophils (%) (Auto) 77, Lymphocytes (%) (Auto) 17 , Monocytes (%) (Auto) 6, Eosinophils (%) (Auto) 0, Basophils (%) (Auto) 0, Neutrophils # (Auto) 11.5, Lymphocytes # (Auto) 2.5, Monocytes # (Auto) 0.9, Eosinophils # (Auto) 0.0, Basophils # (Auto) 0.0, Neutrophils % (Manual) 80, Lymphocytes % (Manual) 13, Monocytes % (Manual) 7, Blood Morphology Comment NORMAL, Prothrombin Time 15.4, INR Comment 1.2, Activated Partial Thromboplast Time 31, Sodium Level 137, Potassium Level 3.7, Chloride Level 103, Carbon Dioxide Level 27, Anion Gap 7, Blood Urea Nitrogen 12, Creatinine 0.93, Estimat Glomerular Filtration Rate > 60, BUN/Creatinine Ratio 13, Glucose Level 200, Lactic Acid Level 1.66, Calcium Level 8.8, Corrected Calcium 9.2, Magnesium Level 1.9, Total Bilirubin 1.3, Aspartate Amino Transf (AST/SGOT) 50, Alanine Aminotransferase (ALT/SGPT) 95, Alkaline Phosphatase 96, Myoglobin 79.1, Troponin I < 0.028, C-Reactive Protein High Sensitivity 2.54, B-Type Natriuretic Peptide 22.6, Total Protein 6.8, Albumin 3.5 06/25/18 10:42: Urine Color GLORIA, Urine Clarity CLEAR, Urine pH 7, Urine Specific [place] 1.010 , Urine Protein 2+, Urine Glucose (UA) NEGATIVE, Urine Ketones NEGATIVE, Urine Nitrite POSITIVE, Urine Bilirubin NEGATIVE, Urine Urobilinogen 8, Urine Leukocyte Esterase 3+, Urine RBC (Auto) 5+, Urine RBC 50-100, Urine WBC 25-50, Urine Squamous Epithelial Cells NONE, Urine Crystals NONE, Urine Bacteria LARGE , Urine Casts NONE, Urine Mucus NEGATIVE, Urine Culture Indicated CULTURE PENDING 06/25/18 16:39: Troponin I < 0.028 06/26/18 03:15: White Blood Count 16.6, Red Blood Count 4.29, Hemoglobin 13.9, Hematocrit 42, Mean Corpuscular Volume 97, Mean Corpuscular Hemoglobin 32, Mean Corpuscular Hemoglobin Concent 33, Red Cell Distribution Width 13.2, Platelet Count 98, Mean Platelet Volume 10.7, Neutrophils (%) (Auto) 76, Lymphocytes (%) (Auto) 16 , Monocytes (%) (Auto) 8, Eosinophils (%) (Auto) 0, Basophils (%) (Auto) 0, Neutrophils # (Auto) 12.7, Lymphocytes # (Auto) 2.6, Monocytes # (Auto) 1.3, Eosinophils # (Auto) 0.0, Basophils # (Auto) 0.0, Sodium Level 138, Potassium Level 4.0, Chloride Level 109, Carbon Dioxide Level 20, Anion Gap 9, Blood Urea Nitrogen 9, Creatinine 0.79, Estimat Glomerular Filtration Rate > 60, BUN/ Creatinine Ratio 11, Glucose Level 111, Calcium Level 7.7, Corrected Calcium 8.5 , Magnesium Level 1.5, Total Bilirubin 1.6, Aspartate Amino Transf (AST/SGOT) 39 , Alanine Aminotransferase (ALT/SGPT) 72, Alkaline Phosphatase 80, Total Protein 6.1, Albumin 3.0, Phosphorus Level 2.0, Triglycerides Level 87, Cholesterol Level 88, LDL Cholesterol Direct 55, VLDL Cholesterol 17, HDL Cholesterol 19 06/26/18 12:04: B-Type Natriuretic Peptide 141.2 06/27/18 04:00: White Blood Count 12.4, Red Blood Count 4.12, Hemoglobin 13.2, Hematocrit 40, Mean Corpuscular Volume 96, Mean Corpuscular Hemoglobin 32, Mean Corpuscular Hemoglobin Concent 33, Red Cell Distribution Width 13.3, Platelet Count 113, Mean Platelet Volume 10.4, Neutrophils (%) (Auto) 77, Lymphocytes (%) (Auto) 15 , Monocytes (%) (Auto) 8, Eosinophils (%) (Auto) 0, Basophils (%) (Auto) 0, Neutrophils # (Auto) 9.5, Lymphocytes # (Auto) 1.9, Monocytes # (Auto) 1.0, Eosinophils # (Auto) 0.0, Basophils # (Auto) 0.0, Sodium Level 137, Potassium Level 3.5, Chloride Level 108, Carbon Dioxide Level 21, Anion Gap 8, Blood Urea Nitrogen 13, Creatinine 0.86, Estimat Glomerular Filtration Rate > 60, BUN/ Creatinine Ratio 15, Glucose Level 139, Calcium Level 7.9, Phosphorus Level 1.9 , Magnesium Level 2.0 06/28/18 03:35: White Blood Count 10.3, Red Blood Count 4.14, Hemoglobin 13.3, Hematocrit 40, Mean Corpuscular Volume 97, Mean Corpuscular Hemoglobin 32, Mean Corpuscular Hemoglobin Concent 33, Red Cell Distribution Width 13.3, Platelet Count 123, Mean Platelet Volume 10.8, Neutrophils (%) (Auto) 70, Lymphocytes (%) (Auto) 16 , Monocytes (%) (Auto) 12, Eosinophils (%) (Auto) 1, Basophils (%) (Auto) 0, Neutrophils # (Auto) 7.2, Lymphocytes # (Auto) 1.7, Monocytes # (Auto) 1.2, Eosinophils # (Auto) 0.1, Basophils # (Auto) 0.0, Sodium Level 138, Potassium Level 3.7, Chloride Level 110, Carbon Dioxide Level 22, Anion Gap 6, Blood Urea Nitrogen 14, Creatinine 0.76, Estimat Glomerular Filtration Rate > 60, BUN/ Creatinine Ratio 18, Glucose Level 121, Calcium Level 8.3, Phosphorus Level 2.0 , Magnesium Level 1.8 06/29/18 06:05: White Blood Count 8.6, Red Blood Count 4.26, Hemoglobin 13.6, Hematocrit 42, Mean Corpuscular Volume 98, Mean Corpuscular Hemoglobin 32, Mean Corpuscular Hemoglobin Concent 33, Red Cell Distribution Width 13.5, Platelet Count 149, Mean Platelet Volume 10.2, Neutrophils (%) (Auto) 61, Lymphocytes (%) (Auto) 24 , Monocytes (%) (Auto) 12, Eosinophils (%) (Auto) 3, Basophils (%) (Auto) 0, Neutrophils # (Auto) 5.2, Lymphocytes # (Auto) 2.1, Monocytes # (Auto) 1.0, Eosinophils # (Auto) 0.2, Basophils # (Auto) 0.0, Sodium Level 140, Potassium Level 3.8, Chloride Level 109, Carbon Dioxide Level 22, Anion Gap 9, Blood Urea Nitrogen 11, Creatinine 0.70, Estimat Glomerular Filtration Rate > 60, BUN/ Creatinine Ratio 16, Glucose Level 110, Calcium Level 8.6, Corrected Calcium 9.4 , Total Bilirubin 0.5, Aspartate Amino Transf (AST/SGOT) 39, Alanine Aminotransferase (ALT/SGPT) 50, Alkaline Phosphatase 77, Total Protein 6.5, Albumin 3.0 06/29/18 09:23: Urine Color YELLOW, Urine Clarity CLEAR, Urine pH 6, Urine Specific [place] 1.010, Urine Protein NEGATIVE, Urine Glucose (UA) NEGATIVE, Urine Ketones NEGATIVE, Urine Nitrite NEGATIVE, Urine Bilirubin NEGATIVE, Urine Urobilinogen 1 , Urine Leukocyte Esterase 1+, Urine RBC (Auto) NEGATIVE, Urine RBC NONE, Urine WBC 0-2, Urine Squamous Epithelial Cells NONE, Urine Crystals NONE, Urine Bacteria NEGATIVE, Urine Casts NONE, Urine Mucus NEGATIVE, Urine Culture Indicated NO Discharge Home Medications: Active Scripts Active Reported Zyprexa (Olanzapine) 5 Mg Tablet 5 Mg PO QID Vraylar (Cariprazine Hydrochloride) 3 Mg Capsule 3 Mg PO DAILY Triamcinolone Acetonide 0.1% Cream (Triamcinolone Acet) 15 Gm Cr TP Q12H PRN Senna (Sennosides) 8.6 Mg Tablet 8.6 Mg PO HS Guaifenesin Dm Syrup (Guaifenesin/Dextromethorphan) 5 Ml Syrup 30 Ml PO Q8H PRN Propranolol HCl 20 Mg Tablet 20 Mg PO TID HOLD FOR SBP <100 Natural Balance Tears Eye Drop (Dextran 70/Hypromellose) 15 Ml Drops 2 Drops OU Q2H PRN Miralax (Polyethylene Glycol 3350) 17 Gm Powd.pack 17 Gm PO DAILY Milk of Magnesia (Magnesium Hydroxide) 400 Mg/5 Ml Oral.susp 30 Ml PO DAILY PRN Melatonin 10 Mg Capsule 10 Mg PO HS Iprat-Albut 0.5-3(2.5) mg/3 ml (Ipratropium/Albuterol Sulfate) 3 Ml Ampul.neb 3 Ml NEB TID Iprat-Albut 0.5-3(2.5) mg/3 ml (Ipratropium/Albuterol Sulfate) 3 Ml Ampul.neb 3 Ml IH Q6H PRN Combivent Respimat Inhal [place] (Albuterol/Ipratropium) 4 Gm Aero 2 Puff IH TID Combivent Respimat Inhal [place] (Albuterol/Ipratropium) 4 Gm Aero 2 Puff IH Q6H PRN Benztropine Mesylate 0.5 Mg Tablet 0.5 Mg PO TID Aspirin EC (Aspirin) 81 Mg Tablet.dr 81 Mg PO DAILY Tylenol Extra Strength (Acetaminophen) 500 Mg Tablet 500 Mg PO DAILY PRN Clonazepam 0.5 Mg Tablet 0.5 Mg PO BID Instructions to patient/family Please see electronic discharge instructions given to patient. Clinical Quality Measures AMI/AHF: ASA po Prior to arrival: Yes (BY EMS) DVT/VTE Risk/Contraindication: Risk Factor Score Per Nursin RFS Level Per Nursing on Admit: 4+=Very High TANI CRAFT DO Jun 30, 2018 07:37
== END 2018-06-29 15:00 | DRG 872 ==
LOC: EDUNIT# 09:12 → ER 09:12 → ICU 11:39 → 4TH 06-26 14:34
PROVIDERS: ADMIT Family Medicine; ATTEND Family Medicine
DX: A41.9 Sepsis, unspecified organism (principal); R65.20 Severe sepsis without septic shock; N39.0 Urinary tract infection, site not specified; J44.1 Chronic obstructive pulmonary disease with (acute) exacerbation; J98.11 Atelectasis; G25.0 Essential tremor; D69.6 Thrombocytopenia, unspecified; E87.6 Hypokalemia; E83.42 Hypomagnesemia; E83.39 Other disorders of phosphorus metabolism; R74.8 Abnormal levels of other serum enzymes; F17.290 Nicotine dependence, other tobacco product, uncomplicated; R07.9 Chest pain, unspecified; F31.9 Bipolar disorder, unspecified; F20.9 Schizophrenia, unspecified; M19.91 Primary osteoarthritis, unspecified site; M62.81 Muscle weakness (generalized); B96.20 Unspecified Escherichia coli [E. coli] as the cause of diseases classified elsewhere
CPT/HCPCS: 36415; 71045; 80048; 80053; 80061; 81000; 83605; 83735; 83874; 83880; 84100; 84484; 85007; 85025; 85027; 85610; 85730; 86141; 87040; 87077; 87081; 87088; 87186; 87804; 93005; 93041; 93306; 94640; 94760; 96361; 96365

== ENCOUNTER → 2018-07-31 | Outpatient (CLI) | payer MEDICARE, MEDICAID ==
[~2018-07-31] MED LIST: ACET-2267 PO; ASPI-983 PO; BENZ0.5T42; BENZ0.5T42 PO; CARI3CAP; CARI3CAP PO; CLON0.5T13 PO; CLON1TAB13; DEXT15DR23 OU; GUAI5SYR PO; IPRA3AMP31 IH; IPRA3AMP31 NEB; IPRA4AER IH; MAGN400O7 PO; MELA10CA2 PO; OLAN5TAB3 PO; POLY17PO6 PO; PROP20TA5 PO; SENN-141 PO; TR1C15 TP
[2018-07-31 17:31] LABS: BILIRUBIN,URINE NEGATIVE (NEGATIVE); CLARITY,URINE VERY CLOUDY; COLOR,URINE YELLOW; GLUCOSE, URINE (UA) NEGATIVE (NEGATIVE); KETONES,URINE NEGATIVE (NEGATIVE); LEUKOCYTE ESTERASE ,URINE 3+ (NEGATIVE); NITRITE,URINE POSITIVE (NEGATIVE); PH,URINE 7 (5-9); PROTEIN,URINE 3+ (NEGATIVE); UROBILINOGEN,URINE 12 MG/DL (NORMAL)
[2018-07-31 17:43] LABS: BACTERIA,URINE LARGE /HPF; RBC,URINE 25-50 /HPF; WBC,URINE TNTC /HPF
== END ==
LOC: LABNPT 17:23
PROVIDERS: ATTEND Family Medicine
DX: N39.0 Urinary tract infection, site not specified (principal)
CPT/HCPCS: 81000; 87077; 87088; 87186

== ENCOUNTER → 2019-01-11 | Outpatient (CLI) | payer MEDICARE, MEDICAID ==
--- NOTE | 2019-01-11 18:14 | Diagnostic Imaging Report ---
INDICATION: Right rib pain. FINDINGS: AP and oblique views of the right ribs are obtained. There are fractures of the eighth and ninth ribs which are of uncertain age. There is no pneumothorax or pleural fluid. IMPRESSION: Right eighth and ninth rib fractures are present which are of undetermined age. Correlate clinically. There is no pneumothorax or pleural fluid. Dictated by: Dictated on workstation # [id number]
== END ==
LOC: RAD 16:35
PROVIDERS: ATTEND Family Medicine
DX: S22.41XA Multiple fractures of ribs, right side, initial encounter for closed fracture (principal)
CPT/HCPCS: 71100

== ENCOUNTER 2019-03-18 14:42 | Inpatient (IN) | payer MEDICARE, MEDICAID ==
[~2019-03-18] VITALS: Ht 175 cm; Wt 101.3 kg
[~2019-03-18 14:42] MED LIST changes: -CLON0.5T13 PO; +CLON0.5T4 PO
[2019-03-18] MEDS ORDERED: ASPIRIN 81 MG CHEW (CHILDREN'S ASA) PO ONE (15:00)
[2019-03-18] MEDS ORDERED: ACETAMINOPHEN 500 MG TAB (TYLENOL) PO ONE (15:00)
[2019-03-18 15:04] LABS: BASOPHILS % (AUTO) 0 % (0-10); EOSINOPHILS # (AUTO) 0.1 10^3/uL (0.0-0.3); EOSINOPHILS % (AUTO) 1 % (0-10); HEMATOCRIT 46 % (40-54); HEMOGLOBIN 15.9 G/DL (13.3-17.7); LYMPHOCYTES # (AUTO) 2.9 X 10^3 (1.0-4.0); LYMPHOCYTES % (AUTO) 31 % (12-44); MEAN CORPUSCULAR HEMOGLOBIN 33 PG (25-34); MEAN CORPUSCULAR HGB CONC 34 G/DL (32-36); MEAN CORPUSCULAR VOLUME 95 FL (80-99); MEAN PLATELET VOLUME 10.2 FL (7.4-10.4); MONOCYTES # (AUTO) 0.8 X 10^3 (0.0-1.0); MONOCYTES % (AUTO) 9 % (0-12); NEUTROPHILS # (AUTO) 5.5 X 10^3 (1.8-7.8); NEUTROPHILS % (AUTO) 59 % (42-75); PLATELET COUNT 137 10^3/uL (130-400); RED CELL DISTRIBUTION WIDTH 12.9 % (10.0-14.5); WHITE BLOOD COUNT 9.3 10^3/uL (4.3-11.0)
--- NOTE | 2019-03-18 15:04 | ED General ---
General Stated Complaint: CP Source of Information: Patient (LIMITED HISTORIAN AND SLOW MENTATION), EMS, Assisted Records History of Present Illness Date Seen by Provider: Mar 18, 2019 Time Seen by Provider: 14:41 Initial Comments PT ARRIVES VIA EMS FROM [facility] PT C/O CHEST PAIN IN CENTER OF CHEST--PT UNABLE TO STATE WHEN IT STARTED HAD REPORTED TO EMS THAT IT WAS HEAVY AND DULL C/O SHORTNESS OF BREATH--ALSO IS UNABLE TO STATE HOW LONG HE HAS FELT SHORT OF BREATH PT IS DIAPHORETIC, PER EMS WAS REPORTED TO EMS THAT PT ALWAYS WEARS A HEAVY COAT, BUT PT HAS BEEN SWEATING WITH OUT HAVING THE COAT ON. PT HAS TREMORS, WHICH ARE REPORTEDLY WORSE THAN NORMAL, PER EMS. NO ASPIRIN GIVEN BY EMS, BUT 1 " NITROPASTE APPLIED FOR CHEST PAIN PT STATES LATER THAT HE HAS HAD FEVER "OFF AND ON" BUT CANNOT STATE WHAT HIS TEMP HAS BEEN OR HOW LONG HE HAS BEEN HAVING FEVER NO COUGH STATES HIS BROTHER CAME TO SEE HIM TODAY, BUT HE COULDN'T TALK TO HIM BECAUSE HE "HURT ALL OVER" NO OTHER RELEVANT INFORMATION IS OBTAINABLE AT THIS TIME. PCP: DR. CRAFT Allergies and Home Medications Allergies Coded Allergies: codeine (Verified Allergy, Unknown, 06/25/18) Home Medications Acetaminophen 500 Mg Tablet, 500 MG PO DAILY PRN for PAIN-MILD, (Reported) Albuterol/Ipratropium 4 Gm Aero, 2 PUFF IH Q6H PRN for SHORTNESS OF BREATH, (Reported) Albuterol/Ipratropium 4 Gm Aero, 2 PUFF IH TID, (Reported) Aspirin 81 Mg Tablet.dr, 81 MG PO DAILY, (Reported) Benztropine Mesylate 0.5 Mg Tablet, 0.5 MG PO TID, (Reported) Cariprazine Hydrochloride 3 Mg Capsule, 3 MG PO DAILY, (Reported) Clonazepam 0.5 Mg Tablet, 0.5 MG PO BID, (Reported) Dextran 70/Hypromellose 15 Ml Drops, 2 DROPS OU Q2H PRN for DRY EYES, (Reported) Guaifenesin/Dextromethorphan 5 Ml Syrup, 30 ML PO Q8H PRN for CONGESTION, (Reported) Ipratropium/Albuterol Sulfate 3 Ml Ampul.neb, 3 ML IH Q6H PRN for SHORTNESS OF BREATH, (Reported) Ipratropium/Albuterol Sulfate 3 Ml Ampul.neb, 3 ML NEB TID, (Reported) Magnesium Hydroxide 400 Mg/5 Ml Oral.susp, 30 ML PO DAILY PRN for CONSTIPATION- 7TH LINE, (Reported) Melatonin 10 Mg Capsule, 10 MG PO HS, (Reported) Olanzapine 5 Mg Tablet, 5 MG PO QID, (Reported) Polyethylene Glycol 3350 17 Gm Powd.pack, 17 GM PO DAILY, (Reported) Propranolol HCl 20 Mg Tablet, 20 MG PO TID, (Reported) HOLD FOR SBP <100 Sennosides 8.6 Mg Tablet, 8.6 MG PO HS, (Reported) Triamcinolone Acet 15 Gm Cr, TP Q12H PRN for ITCHING, (Reported) Patient Home Medication List Home Medication List Reviewed: Yes Review of Systems Review of Systems Constitutional: chills, diaphoresis, fever, weakness, other (PT IS VERY LIMITED HISTORIAN) Respiratory: short of breath Cardiovascular: chest pain Past Unllydl-Uqbwks-Iurkhj Hx Patient Social History Smoking Status: Former Smoker Type Used: Pipe Recent Foreign Travel: No Contact w/Someone Who Travel: No Immunizations Up To Date Date of Pneumonia Vaccine: Dec 25, 2016 Past Medical History Surgeries: No (UNKNOWN) Respiratory: Yes COPD Cardiac: Yes Hypertension Neurological: Yes (GENERALIZED WEAKNESS;GAIT DISTURBANCE;"CONVULSIONS";EXTRA PYRAMIDAL SYMPTOMS) Reproductive Disorders: No Genitourinary: No Gastrointestinal: No Musculoskeletal: Yes (GENERALIZED PAIN, GENERALIZED WEAKNESS, GAIT DISTURBANCE) Arthritis Endocrine: No HEENT: No Cancer: No Psychosocial: Yes Anxiety, Bipolar, Schizophrenia, Depression Integumentary: No Blood Disorders: No Family Medical History TREMORS/NON-SPECIFIC MOVEMENT DISORDER/EXTRAPYRAMIDAL SYMPTOMS Physical Exam Vital Signs Vital Signs - First Documented Capillary Refill : Height, Weight, BMI Height: 5'9.00" Weight: 250lbs. 4.8oz. [id number]; 35.0 BMI Method:Stated General Appearance: No Apparent Distress, WD/WN, Other (SOMEWHAT LETHARGIC, WITH VERY SLOW MENTATION; TREMORS OF HANDS AND ARMS--STOPS WHEN HANDS/ARMS ARE HELD AND LAID DOWN AT HIS SIDES. KEEPS EYES CLOSED) Respiratory: No Accessory Muscle Use, No Respiratory Distress, Other (DECREASED AERATION IN ALL LUNG MALDONADO) Cardiovascular: No Murmur, Tachycardia (MILD TACHYCARDIA--105-110) Gastrointestinal: Non Tender, Soft Back: No CVA Tenderness Extremity: Normal Capillary Refill, Normal Range of Motion, Non Tender, Pedal Edema (1+ BILATERALLY) Neurologic/Psychiatric: Alert, No Motor/Sensory Deficits, Other (VERY FLAT AFFECT; SLOW MENTATION; ORIENTED TO PERSON, GROSSLY ORIENTED TO PLACE; GROSSLY ORIENTED TO SITUATION. ) Skin: Normal Color, Other (SKIN VERY WARM AND SLIGHTLY DAMP/CLAMMY) Focused Exam Lactate Level 03/18/19 14:50: Lactic Acid Level 1.29 Lactic Acid Level Laboratory Tests Test 03/18/19 14:50 Lactic Acid Level 1.29 MMOL/L (0.50-2.00) Progress/Results/Core Measures Suspected Sepsis SIRS Temperature: Pulse: Respiratory Rate: Laboratory Tests 03/18/19 14:50: White Blood Count 9.3 Blood Pressure / Mean: 03/18/19 14:50: Lactic Acid Level 1.29 Laboratory Tests 03/18/19 14:50: Creatinine 0.86, INR Comment 1.1, Platelet Count 137, Total Bilirubin 0.7 Results/Orders Lab Results Laboratory Tests Test 03/18/19 14:50 03/18/19 14:55 Range/Units White Blood Count 9.3 4.3-11.0 10^3/uL Red Blood Count 4.88 4.35-5.85 10^6/uL Hemoglobin 15.9 13.3-17.7 G/DL Hematocrit 46 40-54 % Mean Corpuscular Volume 95 80-99 FL Mean Corpuscular Hemoglobin 33 25-34 PG Mean Corpuscular Hemoglobin Concent 34 32-36 G/DL Red Cell Distribution Width 12.9 10.0-14.5 % Platelet Count 137 130-400 10^3/uL Mean Platelet Volume 10.2 7.4-10.4 FL Neutrophils (%) (Auto) 59 42-75 % Lymphocytes (%) (Auto) 31 12-44 % Monocytes (%) (Auto) 9 0-12 % Eosinophils (%) (Auto) 1 0-10 % Basophils (%) (Auto) 0 0-10 % Neutrophils # (Auto) 5.5 1.8-7.8 X 10^3 Lymphocytes # (Auto) 2.9 1.0-4.0 X 10^3 Monocytes # (Auto) 0.8 0.0-1.0 X 10^3 Eosinophils # (Auto) 0.1 0.0-0.3 10^3/uL Basophils # (Auto) 0.0 0.0-0.1 10^3/uL Prothrombin Time 14.1 12.2-14.7 SEC INR Comment 1.1 0.8-1.4 Activated Partial Thromboplast Time 24 24-35 SEC Sodium Level 139 135-145 MMOL/L Potassium Level 3.6 3.6-5.0 MMOL/L Chloride Level 105 98-107 MMOL/L Carbon Dioxide Level 23 21-32 MMOL/L Anion Gap 11 5-14 MMOL/L Blood Urea Nitrogen 13 7-18 MG/DL Creatinine 0.86 0.60-1.30 MG/DL Estimat Glomerular Filtration Rate > 60 BUN/Creatinine Ratio 15 Glucose Level 144 H 70-105 MG/DL Lactic Acid Level 1.29 0.50-2.00 MMOL/L Calcium Level 8.8 8.5-10.1 MG/DL Corrected Calcium 9.0 8.5-10.1 MG/DL Magnesium Level 1.9 1.6-2.4 MG/DL Total Bilirubin 0.7 0.1-1.0 MG/DL Aspartate Amino Transf (AST/SGOT) 73 H 5-34 U/L Alanine Aminotransferase (ALT/SGPT) 126 H 0-55 U/L Alkaline Phosphatase 128 40-136 U/L Total Creatine Kinase 58 30-200 U/L Creatine Kinase MB 0.6 <6.6 NG/ML Myoglobin 27.2 10.0-92.0 NG/ML Troponin I < 0.028 <0.028 NG/ML B-Type Natriuretic Peptide < 10.0 <100.0 PG/ML Total Protein 7.6 6.4-8.2 GM/DL Albumin 3.8 3.2-4.5 GM/DL Amylase Level 41 25-125 U/L Lipase 9 8-78 U/L Valproic Acid (Depakene) Level < 2.0 L 50.0-100.0 UG/ML Urine Color YELLOW Urine Clarity CLEAR Urine pH 6.0 5-9 Urine Specific [place] 1.025 H 1.016-1.022 Urine Protein NEGATIVE NEGATIVE Urine Glucose (UA) TRACE H NEGATIVE Urine Ketones NEGATIVE NEGATIVE Urine Nitrite NEGATIVE NEGATIVE Urine Bilirubin NEGATIVE NEGATIVE Urine Urobilinogen >=8.0 < = 1.0 MG/DL Urine Leukocyte Esterase NEGATIVE NEGATIVE Urine RBC (Auto) NEGATIVE NEGATIVE Urine RBC RARE /HPF Urine WBC NONE /HPF Urine Crystals NONE /LPF Urine Bacteria NEGATIVE /HPF Urine Casts NONE /LPF Urine Mucus SMALL H /LPF Urine Culture Indicated NO Micro Results Microbiology 03/18/19 Influenza Types A,B Antigen (GADIEL) - Final, Complete My Orders Orders - ANNA TYSON DO Cbc With Automated Diff (03/18/19 14:50) Comprehensive Metabolic Panel (03/18/19 14:50) Blood Culture (03/18/19 14:50) Sputum Culture (03/18/19 14:50) Urinalysis (03/18/19 14:50) Urine Culture (03/18/19 14:50) Protime With Inr (03/18/19 14:50) Partial Thromboplastin Time (03/18/19 14:50) Chest 1 View, Ap/Pa Only (03/18/19 14:50) Ed Iv/Invasive Line Start (03/18/19 14:50) Ed Iv/Invasive Line Start (03/18/19 14:50) Ekg Tracing (03/18/19 14:50) Troponin I (03/18/19 14:50) Vital Signs Adult Sepsis Patie Q15M (03/18/19 14:50) O2 (03/18/19 14:50) Remove Rings In Anticipation O (03/18/19 14:50) Lactic Acid Analyzer (03/18/19 14:50) Influenza A And B Antigens (03/18/19 14:50) Magnesium (03/18/19 14:50) Ekg Tracing (03/18/19 14:50) Myoglobin Serum (03/18/19 14:50) O2 (03/18/19 14:50) Monitor-Rhythm Ecg Trace Only (03/18/19 14:50) Lipid Panel (03/19/19 06:00) Ed Iv/Invasive Line Start (03/18/19 14:50) Creatine Kinase (03/18/19 14:50) Creatine Kinase Mb (03/18/19 14:50) Lipase (03/18/19 14:50) Amylase (03/18/19 14:50) BNP (03/18/19 14:50) Valproic Acid (03/18/19 14:54) Aspirin Chewable Tablet (Baby Aspirin Ch (03/18/19 15:00) Acetaminophen Tablet (Tylenol Tablet) (03/18/19 15:00) Ceftriaxone For Iv Use (Rocephin For I (03/18/19 15:45) Azithromycin Injection (Zithromax Inject (03/18/19 15:45) Ceftriaxone For Iv Use (Rocephin For I (03/18/19 16:12) Ketorolac Injection (Toradol Injection) (03/18/19 16:30) Ed Iv/Invasive Line Start (03/18/19 17:01) Ns Iv 1000 Ml (Sodium Chloride 0.9%) (03/18/19 17:01) Medications Given in ED Current Medications Medications Dose Ordered Sig/Jose M Route Start Time Stop Time Status Last Admin Dose Admin Acetaminophen 1,000 mg ONCE ONCE PO 03/18/19 15:00 03/18/19 15:01 DC 03/18/19 15:39 1,000 MG Aspirin 324 mg ONCE ONCE PO 03/18/19 15:00 03/18/19 15:01 DC 03/18/19 15:39 324 MG Azithromycin 500 mg/Sodium Chloride 250 ml @ 250 mls/hr ONCE ONCE IV 03/18/19 15:45 03/18/19 16:44 DC 03/18/19 16:30 250 MLS/HR Ceftriaxone Sodium 1000 mg/ Sterile Water 10 ml @ 200 mls/hr ONCE ONCE IV 03/18/19 15:45 03/18/19 16:22 DC 03/18/19 16:19 200 MLS/HR Vital Signs/I&O 03/18/19 03/18/19 03/18/19 03/18/19 14:42 14:42 14:42 17:07 Temp 38.2 Pulse 108 106 Resp 18 18 B/P (MAP) 113/73 (86) 111/76 (86) Pulse Ox 96 96 99 O2 Delivery Nasal Cannula Nasal Cannula Nasal Cannula O2 Flow Rate 3.00 2.0 3.00 Capillary Refill : Progress Note : Progress Note PT HAD NO COMPLAINTS OF CHEST PAIN OR SHORTNESS OF BREATH AT ANY TIME DURING ER STAY ONLY C/O HEADACHE AND "HURTING ALL OVER" NITROPASTE DC'D THAT HAD BEEN APPLIED BY EMS PRIOR TO ARRIVAL O2 SATS REMAINED IN UPPER 90'S NO DETERIORATION IN PT'S CONDITION DURING ER STAY PT DOES SEEM A LITTLE MORE ALERT AT TIME OF ADMIT. ECG Initial ECG Impression Date: Mar 18, 2019 Initial ECG Impression Time: 14:43 Initial ECG Rate: 109 Initial ECG Rhythm: Normal Sinus EKG : EKG Time: 14:44 Rate: 109 Rhythm: S.Tach Diagnostic Imaging Comments CXR--PATCHY BIBASILAR ATELECTASIS OR PNEUMONITIS, PER RADIOLOGIST REPORT AT 1543 Reviewed: Reviewed by Me Departure Communication (Admissions) 1600--SPOKE WITH DR. CRAFT, ACCEPTS PT FOR ADMIT. HE STATES THAT [facility], AND HAD SEVERAL MEDICATION CHANGES, BUT HE DOES NOT KNOW OF THE EXACT MEDICATION CHANGES THAT WERE DONE. Impression Primary Impression: Pneumonia Additional Impressions: Sepsis Altered mental status Disposition: ADMITTED INPATIENT Condition: Stable Admissions Decision to Admit Reason: Admit from ER (General) Decision to Admit/Date: Mar 18, 2019 Time/Decision to Admit Time: 16:00 Departure-Patient Inst. Referrals: TANI CRAFT DO (PCP/Family) Primary Care Physician ANNA TYSON DO Mar 18, 2019 15:04
[2019-03-18 15:05] LABS: BILIRUBIN,URINE NEGATIVE (NEGATIVE); CLARITY,URINE CLEAR; COLOR,URINE YELLOW; GLUCOSE, URINE (UA) TRACE (NEGATIVE); KETONES,URINE NEGATIVE (NEGATIVE); LEUKOCYTE ESTERASE ,URINE NEGATIVE (NEGATIVE); NITRITE,URINE NEGATIVE (NEGATIVE); PROTEIN,URINE NEGATIVE (NEGATIVE)
[2019-03-18 15:12] LABS: BACTERIA,URINE NEGATIVE /HPF; RBC,URINE RARE /HPF
[2019-03-18 15:18] LABS: INR 1.1 (0.8-1.4); PROTHROMBIN TIME PATIENT 14.1 SEC (12.2-14.7)
--- NOTE | 2019-03-18 15:25 | NUR ---
SEE LIST FOR CURRENT MEDS
[2019-03-18 15:28] LABS: ALANINE AMINOTRANSFERASE 126 U/L (0-55); ALBUMIN 3.8 GM/DL (3.2-4.5); ALKALINE PHOSPHATASE 128 U/L (40-136); BILIRUBIN,TOTAL 0.7 MG/DL (0.1-1.0); BUN/CREATININE RATIO 15; CALCIUM 8.8 MG/DL (8.5-10.1); CARBON DIOXIDE 23 MMOL/L (21-32); CHLORIDE 105 MMOL/L (98-107); CREATININE SERUM 0.86 MG/DL (0.60-1.30); GFR ESTIMATED > 60; GLUCOSE 144 MG/DL (70-105); POTASSIUM 3.6 MMOL/L (3.6-5.0); SODIUM 139 MMOL/L (135-145); TOTAL PROTEIN 7.6 GM/DL (6.4-8.2)
[2019-03-18 15:29] LABS: MAGNESIUM 1.9 MG/DL (1.6-2.4)
--- NOTE | 2019-03-18 15:36 | Diagnostic Imaging Report ---
INDICATION: Chest pain. Comparison made with prior examination from 06/27/2018. FINDINGS: There is cardiomegaly. There is some patchy bibasilar subsegmental atelectasis and/or pneumonitis. There is no pleural effusion or pneumothorax. Mediastinum is unremarkable. IMPRESSION: Patchy bibasilar subsegmental atelectasis and/or pneumonitis. Dictated by: Dictated on workstation # [id number]
[2019-03-18 15:38] LABS: CREATINE KINASE MB 0.6 NG/ML (<6.6)
[2019-03-18] MEDS ORDERED: cefTRIAXone FOR IV USE 1,000 MG in WATER (STERILE) FOR INJECTION 10 ML IV ONE (15:45)
[2019-03-18] MEDS ORDERED: AZITHROMYCIN INJECTION 500 MG in NS (IVPB) 250 ML IV ONE (15:45)
[2019-03-18] MEDS ORDERED: cefTRIAXone 1,000 MG IV (ROCEPHIN) VIAL ONE (16:12)
[2019-03-18 16:20] LABS: VALPROIC ACID < 2.0 UG/ML (50.0-100.0)
[2019-03-18] MEDS ORDERED: KETOROLAC 30 MG/ML VIAL IVP ONE (16:30)
[2019-03-18] MEDS ORDERED: NS IV 1000 ML 1,000 ML IV SCH (17:01)
[2019-03-18 17:37] VITALS: BP 103/72
[2019-03-18] MEDS ORDERED: CATHETER FLUSH 10 ML SYR IV PRN (17:45)
[2019-03-18] MEDS: D5 1/2 NS W/KCL 20 MEQ/L 1,000 ML IV SCH (18:04)
--- NOTE | 2019-03-18 19:17 | History & Physical ---
History of Present Illness History of Present Illness Reason for visit/HPI Patient is a resident of a prison of [place]. I received a call from the nurse in [place] stating the patient is acting strangely. Patient not eating. Patient taking fluids. Patient lethargic. Patient recently discharged from [facility] psych unit. Patient has extrapyramidal symptoms According to the emergency room physician patient lethargic and not able to give a good history. Patient recognizes me. Patient not able to give good history. Patient has history of schizophrenia. Chest x-ray shows pneumonia. Patient meets criteria for sepsis Date of Admission Mar 18, 2019 at 16:00 Time Seen by a Provider: 07:25 I consulted on this patient on 03/18/19 19:12 Attending Physician Mikie Gross DO Admitting Physician Mikie Gross DO Consult Allergies and Home Medications Allergies Coded Allergies: codeine (Verified Allergy, Unknown, 06/25/18) Home Medications Albuterol/Ipratropium 4 Gm Aero, 2 PUFF INH TID, (Reported) Amantadine HCl 100 Mg Tablet, 100 MG PO BID, (Reported) Aspirin 81 Mg Tablet.dr, 81 MG PO DAILY, (Reported) Azithromycin 250 Mg Tablet, 250 MG PO DAILY Prescribed by: LILLIAN LOCKHART on 03/22/19 1122 Buspirone HCl 7.5 Mg Tablet, 7.5 MG PO BID, (Reported) Clozapine 50 Mg Tablet, 50 MG PO BID, (Reported) Divalproex Sodium 250 Mg Tablet.dr, 250 MG PO TID, (Reported) Gabapentin 300 Mg Capsule, 300 MG PO HS, (Reported) Ipratropium/Albuterol Sulfate 3 Ml Ampul.neb, 3 ML IH Q6H PRN for SHORTNESS OF BREATH, (Reported) Ipratropium/Albuterol Sulfate 3 Ml Ampul.neb, 3 ML NEB TID, (Reported) Lactulose 20 Gm/30 Ml Solution, 30 ML PO BID, (Reported) Loratadine 10 Mg Tablet, 10 MG PO DAILY, (Reported) Multivit-Min/Iron/Folic/Vit K1 1 Each Tab.chew, 1 TAB PO DAILY, (Reported) Polyethylene Glycol 3350 17 Gm Powd.pack, 17 GM PO DAILY, (Reported) Propranolol HCl 20 Mg Tablet, 30 MG PO TID, (Reported) TAKES 1 & 1/2 (20MG) TABLET HOLD FOR SBP <100 Sennosides 8.6 Mg Tablet, 8.6 MG PO HS, (Reported) Thiamine HCl 50 Mg Tablet, 100 MG PO DAILY, (Reported) TAKES 2 (50MG) TABLETS Tramadol HCl 50 Mg Tablet, 50 MG PO Q12H PRN for PAIN-MODERATE (5-7), (Reported) Triamcinolone Acet 15 Gm Cr, TP TID, (Reported) APPLY TO UPPER CHEST AND BACK Patient Home Medication List Home Medication List Reviewed: No Past Ibfihcf-Wjtwdr-Fupjcj Hx Patient Social History Employed/Student: retired Alcohol Use: Denies Use Recreational Drug Use: No Smoking Status: Former Smoker Type Used: Pipe Recent Foreign Travel: No Contact w/other who traveled: No Recent Hopitalizations: No Recent Infectious Disease Expo: No Immunizations Up To Date Date of Pneumonia Vaccine: Dec 25, 2016 Seasonal Allergies Seasonal Allergies: No Past Medical History Respiratory: Pneumonia Cardiac: Hypertension Reproductive: No Musculoskeletal: Arthritis Psychosocial: Anxiety, Bipolar, Schizophrenia, Depression History of Blood Disorders: No Family History TREMORS/NON-SPECIFIC MOVEMENT DISORDER/EXTRAPYRAMIDAL SYMPTOMS Review of Systems Constitutional: weakness, other (EPSS) EENTM: no symptoms reported Respiratory: cough Cardiovascular: no symptoms reported Gastrointestinal: no symptoms reported Genitourinary: no symptoms reported Musculoskeletal: other (DPS) Physical Exam Vital Signs Vital Signs - First Documented 03/21/19 20:54 FiO2 32 Capillary Refill : Less Than 3 SecondsLess Than 3 Seconds Height, Weight, BMI Height: 5'9.00" Weight: 250lbs. 4.8oz. [id number]; 32.65 BMI Method:Stated General Appearance: No Apparent Distress, WD/WN Eyes: Bilateral Eye Normal Inspection HEENT: Normal ENT Inspection Neck: Normal Inspection Respiratory: No Accessory Muscle Use, No Respiratory Distress, Decreased Breath Sounds Cardiovascular: Regular Rate, Rhythm, No Murmur Gastrointestinal: Non Tender, Soft Assessment/Plan Assessment and Plan Pneumonia. Sepsis. Altered mental status. Schizophrenia. EPS. Lethargy Admission Diagnosis Admission Status: Inpatient Order (span 2 midnights) Reason for Inpatient Admission: Pneumonia. Not eating. Not drinking Acute mental status change Clinical Quality Measures AMI/AHF: ASA po Prior to arrival: No DVT/VTE Risk/Contraindication: Risk Factor Score Per Nursin RFS Level Per Nursing on Admit: 2=Moderate GELLENDER,MIKIE A DO Mar 18, 2019 19:17
--- NOTE | 2019-03-18 20:00 | NUR ---
THIS RN NOTIFIED DR. CRAFT ABOUT RESTARTING SOME OF THE PATIENT'S HOME MEDICATIONS. RESTARTED. BUSPIRONE 7.5 MG BID, CLOZAPINE 50 MG BID, DEPAKOTE 250 MG TID, GABAPENTIN 300 MG HS, AND PROPRANOLOL 20 MG TID AT THIS TIME.
[2019-03-18 20:04] VITALS: BP 143/76
--- NOTE | 2019-03-18 20:08 | NUR ---
CHEST X-RAY ORDER ENTERED FOR TOMORROW MORNING BY THIS RN. VERBAL ORDER FROM DR. CRAFT.
--- NOTE | 2019-03-18 20:29 | NUR ---
PHARMACY CONTACTED THIS RN AND STATED THAT PATIENT ISN'T ENROLLED IN THE LEANDRA PROGRAM AT THIS TIME, THEREFORE CLOZAPINE 50 MG BID IS ON HOLD UNTIL FURTHER NOTICE. PHARMACY SAID THEY WOULD CALL TOMORROW AND SORT OUT THE LEANDRA PROGRAM IN THE MORNING.
[2019-03-18] MEDS: busPIRone 15 MG (BUSPAR) TABLET PO SCH (20:41)
[2019-03-18] MEDS: PROPRANOLOL 20 MG (INDERAL) TABLET PO SCH (20:41)
[2019-03-18] MEDS: ENOXAPARIN 40 MG/0.4 ML (LOVENOX) SYR SC SCH (20:42)
[2019-03-18] MEDS: DIVALPROEX 250 MG DELAYED RELEASE (DEPAKOTE) TAB PO SCH (20:42)
[2019-03-18] MEDS: GABAPENTIN 300 MG (NEURONTIN) CAP PO SCH (20:42)
[2019-03-18] MEDS ORDERED: cloZAPine 100 MG (CLOZARIL) TAB PO SCH (21:00)
[2019-03-18 23:40] VITALS: BP 105/70
[2019-03-19] MEDS: D5 1/2 NS W/KCL 20 MEQ/L 1,000 ML IV SCH ×3 (02:55→23:22)
[2019-03-19 03:27] VITALS: BP 111/74
[2019-03-19] MEDS ORDERED: DIVA250T2 PO (04:03)
[2019-03-19] MEDS ORDERED: AMAN100T PO (04:03)
[2019-03-19] MEDS ORDERED: TRM50T PO (04:03)
[2019-03-19] MEDS ORDERED: LACT20SO2 PO (04:03)
[2019-03-19] MEDS ORDERED: BUSP7.5T5 PO (04:03)
[2019-03-19] MEDS ORDERED: MULT-1112 PO (04:03)
[2019-03-19] MEDS ORDERED: IPRA4AER INH (04:03)
[2019-03-19] MEDS ORDERED: CLOZ50TA PO (04:03)
[2019-03-19] MEDS ORDERED: LORA10TA7 PO (04:03)
[2019-03-19] MEDS ORDERED: THIA100T68 PO (04:03)
[2019-03-19] MEDS ORDERED: GABA-488 PO (04:03)
[2019-03-19 04:50] LABS: BASOPHILS # (AUTO) 0.1 10^3/uL (0.0-0.1); BASOPHILS % (AUTO) 1 % (0-10); EOSINOPHILS # (AUTO) 0.2 10^3/uL (0.0-0.3); EOSINOPHILS % (AUTO) 3 % (0-10); HEMATOCRIT 42 % (40-54); HEMOGLOBIN 14.3 G/DL (13.3-17.7); LYMPHOCYTES # (AUTO) 3.9 X 10^3 (1.0-4.0); LYMPHOCYTES % (AUTO) 44 % (12-44); MEAN CORPUSCULAR HEMOGLOBIN 33 PG (25-34); MEAN CORPUSCULAR HGB CONC 34 G/DL (32-36); MEAN CORPUSCULAR VOLUME 96 FL (80-99); MEAN PLATELET VOLUME 9.7 FL (7.4-10.4); MONOCYTES # (AUTO) 0.8 X 10^3 (0.0-1.0); MONOCYTES % (AUTO) 9 % (0-12); NEUTROPHILS # (AUTO) 3.9 X 10^3 (1.8-7.8); NEUTROPHILS % (AUTO) 44 % (42-75); PLATELET COUNT 123 10^3/uL (130-400); RED CELL DISTRIBUTION WIDTH 13.2 % (10.0-14.5); WHITE BLOOD COUNT 8.9 10^3/uL (4.3-11.0)
[2019-03-19 05:12] LABS: ALANINE AMINOTRANSFERASE 102 U/L (0-55); ALBUMIN 3.3 GM/DL (3.2-4.5); ALKALINE PHOSPHATASE 112 U/L (40-136); BILIRUBIN,TOTAL 0.6 MG/DL (0.1-1.0); BUN/CREATININE RATIO 17; CALCIUM 8.1 MG/DL (8.5-10.1); CARBON DIOXIDE 20 MMOL/L (21-32); CHLORIDE 108 MMOL/L (98-107); CHOLESTEROL 119 MG/DL (< 200); CREATININE SERUM 0.75 MG/DL (0.60-1.30); GFR ESTIMATED > 60; GLUCOSE 130 MG/DL (70-105); HDL CHOLESTEROL 24 MG/DL (40-60); POTASSIUM 3.5 MMOL/L (3.6-5.0); SODIUM 137 MMOL/L (135-145); TOTAL PROTEIN 6.6 GM/DL (6.4-8.2); TRIGLYCERIDES 105 MG/DL (<150); VLDL CHOLESTEROL 21 MG/DL (5-40)
--- NOTE | 2019-03-19 07:51 | Progress Note ---
Subjective Time Seen by a Provider: 07:49 Subjective/Events-last exam Patient states she's feeling better today. Patient not communicating much. Liver tests coming down. Chest x-ray not read yet Focused Exam Lactate Level 03/18/19 14:50: Lactic Acid Level 1.29 Objective Exam Vital Signs Date Time Temp Pulse Resp B/P (MAP) Pulse Ox O2 Delivery O2 Flow Rate FiO2 03/19/19 06:17 Nasal Cannula 3.00 03/19/19 03:27 36.4 64 17 111/74 (86) 98 Nasal Cannula 3.00 03/19/19 01:00 70 03/18/19 23:40 36.3 71 16 105/70 (82) 98 Nasal Cannula 3.00 03/18/19 22:16 74 03/18/19 20:04 36.8 110 18 143/76 (98) 96 Nasal Cannula 3.00 03/18/19 20:00 Nasal Cannula 3.00 03/18/19 17:37 37.0 120 20 103/72 95 Nasal Cannula 3.00 03/18/19 17:07 106 18 111/76 (86) 99 Nasal Cannula 3.00 03/18/19 14:42 Nasal Cannula 2.0 03/18/19 14:42 38.2 108 18 113/73 (86) 96 03/18/19 14:42 96 Nasal Cannula 3.00 I & O 03/19/19 06:59 Intake Total 3150 ml Balance 3150 ml Capillary Refill : Less Than 3 SecondsLess Than 3 Seconds General Appearance: No Apparent Distress, WD/WN HEENT: Normal ENT Inspection Neck: Normal Inspection Respiratory: No Accessory Muscle Use, No Respiratory Distress, Decreased Breath Sounds Cardiovascular: Regular Rate, Rhythm, No Murmur Gastrointestinal: non tender, soft Results Lab Laboratory Tests 03/18/19 14:50 03/19/19 04:40 Laboratory Tests 03/18/19 14:50: White Blood Count 9.3, Red Blood Count 4.88, Hemoglobin 15.9, Hematocrit 46, Mean Corpuscular Volume 95, Mean Corpuscular Hemoglobin 33, Mean Corpuscular Hemoglobin Concent 34, Red Cell Distribution Width 12.9, Platelet Count 137, Mean Platelet Volume 10.2, Neutrophils (%) (Auto) 59, Lymphocytes (%) (Auto) 31, Monocytes (%) (Auto) 9, Eosinophils (%) (Auto) 1, Basophils (%) (Auto) 0, Neutrophils # (Auto) 5.5, Lymphocytes # (Auto) 2.9, Monocytes # (Auto) 0.8, Eosinophils # (Auto) 0.1, Basophils # (Auto) 0.0, Prothrombin Time 14.1, INR Comment 1.1, Activated Partial Thromboplast Time 24, Sodium Level 139, Potassium Level 3.6, Chloride Level 105, Carbon Dioxide Level 23, Anion Gap 11, Blood Urea Nitrogen 13, Creatinine 0.86, Estimat Glomerular Filtration Rate > 60, BUN/Creatinine Ratio 15, Glucose Level 144H, Lactic Acid Level 1.29, Calcium Level 8.8, Corrected Calcium 9.0, Magnesium Level 1.9, Total Bilirubin 0.7, Aspartate Amino Transf (AST/SGOT) 73H, Alanine Aminotransferase (ALT/SGPT) 126H, Alkaline Phosphatase 128, Total Creatine Kinase 58, Creatine Kinase MB 0.6, Myoglobin 27.2, Troponin I < 0.028, B-Type Natriuretic Peptide < 10.0, Total Protein 7.6, Albumin 3.8, Amylase Level 41, Lipase 9, Valproic Acid (Depakene) Level < 2.0L 03/18/19 14:55: Urine Color YELLOW, Urine Clarity CLEAR, Urine pH 6.0, Urine Specific [place] 1.025H, Urine Protein NEGATIVE, Urine Glucose (UA) TRACEH, Urine Ketones NEGATIVE, Urine Nitrite NEGATIVE, Urine Bilirubin NEGATIVE, Urine Urobilinogen >=8.0, Urine Leukocyte Esterase NEGATIVE, Urine RBC (Auto) NEGATIVE, Urine RBC RARE, Urine WBC NONE, Urine Crystals NONE, Urine Bacteria NEGATIVE, Urine Casts NONE, Urine Mucus SMALLH, Urine Culture Indicated NO 03/19/19 04:40: White Blood Count 8.9, Red Blood Count 4.39, Hemoglobin 14.3, Hematocrit 42, Mean Corpuscular Volume 96, Mean Corpuscular Hemoglobin 33, Mean Corpuscular Hemoglobin Concent 34, Red Cell Distribution Width 13.2, Platelet Count 123L, Mean Platelet Volume 9.7, Neutrophils (%) (Auto) 44, Lymphocytes (%) (Auto) 44, Monocytes (%) (Auto) 9, Eosinophils (%) (Auto) 3, Basophils (%) (Auto) 1, Neutrophils # (Auto) 3.9, Lymphocytes # (Auto) 3.9, Monocytes # (Auto) 0.8, Eosinophils # (Auto) 0.2, Basophils # (Auto) 0.1, Sodium Level 137, Potassium Level 3.5L, Chloride Level 108H, Carbon Dioxide Level 20L, Anion Gap 9, Blood Urea Nitrogen 13, Creatinine 0.75, Estimat Glomerular Filtration Rate > 60, BUN/Creatinine Ratio 17, Glucose Level 130H, Calcium Level 8.1L, Corrected Calcium 8.7, Total Bilirubin 0.6, Aspartate Amino Transf (AST/SGOT) 57H, Alanine Aminotransferase (ALT/SGPT) 102H, Alkaline Phosphatase 112, Total Protein 6.6, Albumin 3.3, Triglycerides Level 105, Cholesterol Level 119, LDL Cholesterol Direct 84, VLDL Cholesterol 21, HDL Cholesterol 24L Microbiology 03/18/19 Influenza Types A,B Antigen (GADIEL) - Final, Complete Assessment/Plan Assessment/Plan Assess & Plan/Chief Complaint Pneumonia. Sepsis. Acute mental status change. Schizophrenia. EPS Clinical Quality Measures Admission Status Admission Dx Pneumonia. Sepsis. Altered mental status. Schizophrenia. EPS. Lethargy AMI/AHF: ASA po Prior to arrival: No DVT/VTE Risk/Contraindication: Risk Factor Score Per Nursin RFS Level Per Nursing on Admit: 2=Moderate TANI CRAFT DO Mar 19, 2019 07:51
[2019-03-19 08:00] VITALS: BP 142/90
--- NOTE | 2019-03-19 08:06 | Diagnostic Imaging Report ---
EXAM: CHEST 1 VIEW, AP/PA ONLY INDICATION: Sepsis. Pneumonia. COMPARISON: 03/18/2019. FINDINGS: Cardiomegaly with normal central pulmonary vascularity. Increasing consolidation left lung base. No definite pleural effusion or pneumothorax. No acute osseous findings. IMPRESSION: 1. Cardiomegaly. 2. Increased consolidation left lung base. Dictated by: Dictated on workstation # [id number]
[2019-03-19] MEDS: PROPRANOLOL 20 MG (INDERAL) TABLET PO SCH ×3 (08:29→21:36)
[2019-03-19] MEDS: ACETAMINOPHEN 500 MG TAB (TYLENOL) PO PRN (08:29)
[2019-03-19] MEDS ORDERED: THIA50TA10 PO (08:29)
[2019-03-19] MEDS: AZITHROMYCIN 250 MG TAB (ZITHROMAX) PO SCH (08:30)
[2019-03-19] MEDS: DIVALPROEX 250 MG DELAYED RELEASE (DEPAKOTE) TAB PO SCH ×3 (08:30→21:36)
[2019-03-19] MEDS: busPIRone 15 MG (BUSPAR) TABLET PO SCH ×2 (08:30→21:36)
--- NOTE | 2019-03-19 08:30 | NUR ---
[facility]
[2019-03-19 12:00] VITALS: BP 117/80
[2019-03-19] MEDS: cloZAPine 100 MG (CLOZARIL) TAB PO SCH ×2 (13:35→21:36)
--- NOTE | 2019-03-19 14:20 | NUR ---
REMOTE INPATIENT CODER CALLED AND STATED PT. IN SVT WITH HEART RATE 120. EI=029/75 P=67 RESP=18 O2 SAT 95 % ON EKG DONE. DR. CRAFT NOTIFIED. NEW ORDER'S NOTED . DR. OGLESBY CONSULTED & NOTIFIED.
--- NOTE | 2019-03-19 14:30 | NUR ---
C/O OF CHEST PAIN ( HEAVINESS ) RATES PAIN 7/10.
--- NOTE | 2019-03-19 14:50 | NUR ---
PT. DENIES CHEST PAIN NOW. DR. OGLESBY HERE TO ACCESS PT.
--- NOTE | 2019-03-19 15:13 | Consultation-Cardiology ---
HPI-Cardiology Cardiology Consultation Date of Consultation 03/19/19 Date of Admission Time Seen by Provider: 15:09 Indication: chest pain HPI 58-year-old gentleman with history of bipolar disorder, schizophrenia, admitted with pneumonia, was sitting in bed when he was noted to be tachycardic and he was having some chest discomfort. Was placed in bed. Still having mild chest d iscomfort. No palpitation, unable to provide full history or full review of system overall. Laying comfortably in bed. Home Medications & Allergies Allergies: Coded Allergies: codeine (Verified Allergy, Unknown, 06/25/18) Home Medication List Reviewed: Yes [id number] Hx Patient Social History Employed/Student: retired Alcohol Use: Denies Use Recreational Drug Use: No Smoking Status: Former Smoker Type Used: Pipe Recent Foreign Travel: No Recent Infectious Disease Expo: No Recent Hopitalizations: No Immunizations Up To Date Date of Pneumonia Vaccine: Dec 25, 2016 Past Medical History discussed below Family Medical History Family Medical Hx noncontributory to his current condition Review of Systems-General Review of Systems Constitutional: no symptoms reported, see HPI, weakness, other (EPSS) EENTM: see HPI, no symptoms reported Respiratory: see HPI, cough Cardiovascular: see HPI, chest pain; No edema, No Hx of Intervention, No palpitations, No syncope, No vascular heart diseas, No other Gastrointestinal: no symptoms reported, see HPI Genitourinary: no symptoms reported, see HPI Musculoskeletal: other (DPS) Skin: no symptoms reported, see HPI Psychiatric/Neurological: See HPI, Depressed, Emotional Problems, Tremors, Other Reviewed Test Results Reviewed Test Results Lab Laboratory Tests Test 03/19/19 04:40 03/19/19 14:45 Range/Units White Blood Count 8.9 4.3-11.0 10^3/uL Red Blood Count 4.39 4.35-5.85 10^6/uL Hemoglobin 14.3 13.3-17.7 G/DL Hematocrit 42 40-54 % Mean Corpuscular Volume 96 80-99 FL Mean Corpuscular Hemoglobin 33 25-34 PG Mean Corpuscular Hemoglobin Concent 34 32-36 G/DL Red Cell Distribution Width 13.2 10.0-14.5 % Platelet Count 123 L 130-400 10^3/uL Mean Platelet Volume 9.7 7.4-10.4 FL Neutrophils (%) (Auto) 44 42-75 % Lymphocytes (%) (Auto) 44 12-44 % Monocytes (%) (Auto) 9 0-12 % Eosinophils (%) (Auto) 3 0-10 % Basophils (%) (Auto) 1 0-10 % Neutrophils # (Auto) 3.9 1.8-7.8 X 10^3 Lymphocytes # (Auto) 3.9 1.0-4.0 X 10^3 Monocytes # (Auto) 0.8 0.0-1.0 X 10^3 Eosinophils # (Auto) 0.2 0.0-0.3 10^3/uL Basophils # (Auto) 0.1 0.0-0.1 10^3/uL Sodium Level 137 135-145 MMOL/L Potassium Level 3.5 L 3.6-5.0 MMOL/L Chloride Level 108 H 98-107 MMOL/L Carbon Dioxide Level 20 L 21-32 MMOL/L Anion Gap 9 5-14 MMOL/L Blood Urea Nitrogen 13 7-18 MG/DL Creatinine 0.75 0.60-1.30 MG/DL Estimat Glomerular Filtration Rate > 60 BUN/Creatinine Ratio 17 Glucose Level 130 H 70-105 MG/DL Calcium Level 8.1 L 8.5-10.1 MG/DL Corrected Calcium 8.7 8.5-10.1 MG/DL Total Bilirubin 0.6 0.1-1.0 MG/DL Aspartate Amino Transf (AST/SGOT) 57 H 5-34 U/L Alanine Aminotransferase (ALT/SGPT) 102 H 0-55 U/L Alkaline Phosphatase 112 40-136 U/L Total Protein 6.6 6.4-8.2 GM/DL Albumin 3.3 3.2-4.5 GM/DL Triglycerides Level 105 <150 MG/DL Cholesterol Level 119 < 200 MG/DL LDL Cholesterol Direct 84 1-129 MG/DL VLDL Cholesterol 21 5-40 MG/DL HDL Cholesterol 24 L 40-60 MG/DL Physical Exam Physical Exam Vital Signs Vital Signs - First Documented Capillary Refill : Less Than 3 SecondsLess Than 3 Seconds Height, Weight, BMI Height: 5'9.00" Weight: 250lbs. 4.8oz. [id number]; 32.65 BMI Method:Stated General Appearance: No Apparent Distress, WD/WN Eyes: Bilateral Eye Normal Inspection HEENT: Normal ENT Inspection Neck: Normal Inspection Respiratory: No Accessory Muscle Use, No Respiratory Distress, Decreased Breath Sounds Cardiovascular: Regular Rate, Rhythm, No Murmur, Normal Peripheral Pulses Gastrointestinal: Non Tender, Soft Back: No CVA Tenderness Extremity: Normal Capillary Refill, Normal Range of Motion, Non Tender, Pedal Edema (1+ BILATERALLY) Neurologic/Psychiatric: Alert, No Motor/Sensory Deficits, Other (VERY FLAT AFFECT; SLOW MENTATION; ORIENTED TO PERSON, GROSSLY ORIENTED TO PLACE; GROSSLY ORIENTED TO SITUATION. ) Skin: Normal Color, Other (SKIN VERY WARM AND SLIGHTLY DAMP/CLAMMY) A/P-Cardiology Admission Diagnosis Chest pain Pneumonia Sepsis Sinus tachycardia Assessment/Plan Chest pain nonspecific etiology, atypical in presentation, EKG did not show any acute ischemic changes. Cardiac enzymes are pending. Continue to monitor, has been seen by Dr. Ballesteros in June 2018 and recommended stress test as an outpatient. Pneumonia, receiving antibiotic, managed by primary care team Bipolar disorder, schizophrenia. Managed by primary care team. Status post episode of tachycardia, currently in sinus rhythm. Continue to monitor his low-dose beta blockers and monitor tolerance and response. Clinical Quality Measures AMI/AHF: ASA po Prior to arrival: No DVT/VTE Risk/Contraindication: Risk Factor Score Per Nursin RFS Level Per Nursing on Admit: 2=Moderate SILVA OGLESBY MD Mar 19, 2019 15:13
[2019-03-19 16:26] VITALS: BP 115/78
[2019-03-19] MEDS: cefTRIAXone 1,000 MG/SWFI 10 ML IV PUSH IV SCH ×2 (17:35)
[2019-03-19] MEDS: ENOXAPARIN 40 MG/0.4 ML (LOVENOX) SYR SC SCH (18:17)
[2019-03-19 19:45] VITALS: BP 128/72
[2019-03-19] MEDS: GABAPENTIN 300 MG (NEURONTIN) CAP PO SCH (21:36)
[2019-03-20] VITALS: BP 114/67
[2019-03-20 04:00] VITALS: BP 97/57
[2019-03-20 04:45] LABS: BASOPHILS % (AUTO) 0 % (0-10); EOSINOPHILS # (AUTO) 0.3 10^3/uL (0.0-0.3); EOSINOPHILS % (AUTO) 3 % (0-10); HEMATOCRIT 44 % (40-54); HEMOGLOBIN 14.4 G/DL (13.3-17.7); LYMPHOCYTES # (AUTO) 3.5 X 10^3 (1.0-4.0); LYMPHOCYTES % (AUTO) 40 % (12-44); MEAN CORPUSCULAR HEMOGLOBIN 32 PG (25-34); MEAN CORPUSCULAR HGB CONC 33 G/DL (32-36); MEAN CORPUSCULAR VOLUME 98 FL (80-99); MEAN PLATELET VOLUME 10.6 FL (7.4-10.4); MONOCYTES # (AUTO) 0.7 X 10^3 (0.0-1.0); MONOCYTES % (AUTO) 8 % (0-12); NEUTROPHILS # (AUTO) 4.2 X 10^3 (1.8-7.8); NEUTROPHILS % (AUTO) 49 % (42-75); PLATELET COUNT 135 10^3/uL (130-400); RED CELL DISTRIBUTION WIDTH 13.1 % (10.0-14.5); WHITE BLOOD COUNT 8.6 10^3/uL (4.3-11.0)
[2019-03-20 05:14] LABS: ALANINE AMINOTRANSFERASE 101 U/L (0-55); ALBUMIN 3.4 GM/DL (3.2-4.5); ALKALINE PHOSPHATASE 99 U/L (40-136); BILIRUBIN,TOTAL 0.5 MG/DL (0.1-1.0); BUN/CREATININE RATIO 14; CALCIUM 8.3 MG/DL (8.5-10.1); CARBON DIOXIDE 21 MMOL/L (21-32); CHLORIDE 107 MMOL/L (98-107); CREATININE SERUM 0.77 MG/DL (0.60-1.30); GFR ESTIMATED > 60; GLUCOSE 109 MG/DL (70-105); SODIUM 138 MMOL/L (135-145); TOTAL PROTEIN 6.6 GM/DL (6.4-8.2)
--- NOTE | 2019-03-20 08:15 | Diagnostic Imaging Report ---
INDICATION: Lower respiratory infection. Portable chest 5:31 AM FINDINGS: Heart size and pulmonary vascularity are normal. Lungs are clear. There are no effusions or pneumothoraces. IMPRESSION: No acute abnormalities in the chest. Dictated by: Dictated on workstation # [id number]
[2019-03-20 08:24] VITALS: BP 133/72
[2019-03-20] MEDS: DIVALPROEX 250 MG DELAYED RELEASE (DEPAKOTE) TAB PO SCH ×3 (09:24→21:25)
[2019-03-20] MEDS: PROPRANOLOL 20 MG (INDERAL) TABLET PO SCH ×3 (09:24→21:25)
[2019-03-20] MEDS: busPIRone 15 MG (BUSPAR) TABLET PO SCH ×2 (09:24→21:25)
[2019-03-20] MEDS: D5 1/2 NS W/KCL 20 MEQ/L 1,000 ML IV SCH ×2 (09:24→19:31)
[2019-03-20] MEDS: AZITHROMYCIN 250 MG TAB (ZITHROMAX) PO SCH (09:25)
[2019-03-20] MEDS: cloZAPine 100 MG (CLOZARIL) TAB PO SCH ×2 (09:25→21:25)
--- NOTE | 2019-03-20 11:45 | Progress Note - Hospitalist ---
Subjective HPI/CC On Admission Date Seen by Provider: Mar 20, 2019 Time Seen by Provider: 11:42 Subjective/Events-last exam Pt is sitting up in chair. No complaints but quite drowsy. Per RN this has been his baseline. Focused Exam Lactate Level 03/18/19 14:50: Lactic Acid Level 1.29 Objective Exam Vital Signs Vital Signs Date Time Temp Pulse Resp B/P (MAP) Pulse Ox O2 Delivery O2 Flow Rate FiO2 03/20/19 08:24 36.8 69 18 133/72 (92) 96 Nasal Cannula 3.00 Capillary Refill : Less Than 3 SecondsLess Than 3 Seconds General Appearance: No Apparent Distress, Chronically ill Respiratory: Lungs Clear, No Respiratory Distress Cardiovascular: Regular Rate, Rhythm, No Murmur Results/Procedures Lab Laboratory Tests 03/20/19 04:06 Patient resulted labs reviewed. Assessment/Plan Assessment and Plan Assess & Plan/Chief Complaint Pneumonia- Continue Rocephin and Azithro Acute mental status change- I am unsure of baseline so will monitor Schizophrenia- continue home meds Chest pain- cardiology consult, appreciate recs Clinical Quality Measures AMI/AHF: ASA po Prior to arrival: No DVT/VTE Risk/Contraindication: Risk Factor Score Per Nursin RFS Level Per Nursing on Admit: 2=Moderate LUIS BISHOP MD Mar 20, 2019 11:45
--- NOTE | 2019-03-20 12:56 | Cardiology Progress Note ---
Subjective Date Seen by Provider: Mar 20, 2019 Time Seen by Provider: 12:55 Subjective/Events-last exam Patient is sitting in a chair, feeling better. No new complaint Review of Systems General: No Chills, No Night Sweats, No Fatigue, No Malaise, No Appetite, No Other HEENT: No Head Aches, No Visual Changes, No Eye Pain, No Ear Pain, No Dysphasia, No Sinus Congestion, No Post Nasal Drip, No Sore Throat, No Other Pulmonary: No Dyspnea, No Cough, No Pleuritic Chest Pain, No Other Cardiovascular: No: Chest Pain, Palpitations, Orthopnea, Paroxysmal Noc. Dyspnea, Edema, Lt Headedness, Other Focused Exam Lactate Level 03/18/19 14:50: Lactic Acid Level 1.29 Objective-Cardiology Exam Last Set of Vital Signs Vital Signs 03/20/19 08:24 Temp 36.8 Pulse 69 Resp 18 B/P (MAP) 133/72 (92) Pulse Ox 96 O2 Delivery Nasal Cannula O2 Flow Rate 3.00 Capillary Refill : Less Than 3 SecondsLess Than 3 Seconds I&O Intake and Output 03/20/19 00:00 Intake Total 2270 ml Output Total 400 ml Balance 1870 ml Intake Oral 1270 ml IV Total 1000 ml Output Urine Total 400 ml # Voids 8 General: Alert, Oriented X3, Cooperative HEENT: Atraumatic, PERRLA Neck: Supple, No JVD, No Thyromegaly Lungs: Clear to Auscultation, Normal Air Movement Heart: Regular Rate, Normal S1, Normal S2, No Murmurs Abdomen: Normal Bowel Sounds, Soft, No Tenderness, No Hepatosplenomegaly, No Masses Extremities: No Clubbing, No Cyanosis, No Edema, Normal Pulses, No Tenderness/Swelling Skin: No Rashes, No Breakdown, No Significant Lesion Neuro: Normal Gait, Normal Speech, Strength at 5/5 X4 Ext, Normal Tone, Sensation Intact Psych/Mental Status: Mental Status NL, Mood NL Results Lab Laboratory Tests 03/20/19 04:06 A/P-Cardiology Admission Diagnosis Chest pain Pneumonia Sepsis Sinus tachycardia Assessment/Plan Chest pain nonspecific etiology, atypical in presentation, EKG did not show any acute ischemic changes. Resolved. Continue to monitor, has been seen by Dr. Ballesteros in June 2018 and recommended stress test as an outpatient. Pneumonia, receiving antibiotic, managed by primary care team Bipolar disorder, schizophrenia. Managed by primary care team. Status post episode of tachycardia, currently in sinus rhythm. Continue to mo nitor his low-dose beta blockers and monitor Clinical Quality Measures AMI/AHF: ASA po Prior to arrival: No DVT/VTE Risk/Contraindication: Risk Factor Score Per Nursin RFS Level Per Nursing on Admit: 2=Moderate SILVA OGLESBY MD Mar 20, 2019 12:56
[2019-03-20 12:59] VITALS: BP 99/59
--- NOTE | 2019-03-20 13:00 | NUR ---
[address] BISHOP. B/P .
[2019-03-20 16:13] VITALS: BP 108/57
[2019-03-20] MEDS: ENOXAPARIN 40 MG/0.4 ML (LOVENOX) SYR SC SCH (18:12)
[2019-03-20] MEDS: cefTRIAXone 1,000 MG/SWFI 10 ML IV PUSH IV SCH ×2 (18:12)
[2019-03-20 20:18] VITALS: BP 113/63
[2019-03-20] MEDS: GABAPENTIN 300 MG (NEURONTIN) CAP PO SCH (21:25)
[2019-03-21] VITALS (9 sets, daily range): BP systolic 92–128; BP diastolic 61–85
[2019-03-21] MEDS: ACETAMINOPHEN 500 MG TAB (TYLENOL) PO PRN (03:30)
[2019-03-21] MEDS ORDERED: RT-ALBUTEROL/IPRATROPIUM 3 ML (DUONEB) VIAL INH PRN (03:45)
[2019-03-21] MEDS: D5 1/2 NS W/KCL 20 MEQ/L 1,000 ML IV SCH (05:25)
[2019-03-21] MEDS: cloZAPine 100 MG (CLOZARIL) TAB PO SCH ×2 (09:37→21:36)
[2019-03-21] MEDS: AZITHROMYCIN 250 MG TAB (ZITHROMAX) PO SCH (09:37)
[2019-03-21] MEDS: busPIRone 15 MG (BUSPAR) TABLET PO SCH ×2 (09:38→21:36)
[2019-03-21] MEDS: DIVALPROEX 250 MG DELAYED RELEASE (DEPAKOTE) TAB PO SCH ×3 (09:38→21:36)
[2019-03-21] MEDS: PROPRANOLOL 20 MG (INDERAL) TABLET PO SCH ×3 (09:38→21:36)
--- NOTE | 2019-03-21 10:01 | Cardiology Progress Note ---
Subjective Date Seen by Provider: Mar 21, 2019 Time Seen by Provider: 10:01 Subjective/Events-last exam Patient is laying down in bed, tired, no new complaint Review of Systems General: No Chills, No Night Sweats; Fatigue; No Malaise, No Appetite, No Other HEENT: No Head Aches, No Visual Changes, No Eye Pain, No Ear Pain, No Dysphasia, No Sinus Congestion, No Post Nasal Drip, No Sore Throat, No Other Pulmonary: No Dyspnea, No Cough, No Pleuritic Chest Pain, No Other Cardiovascular: No: Chest Pain, Palpitations, Orthopnea, Paroxysmal Noc. Dyspnea, Edema, Lt Headedness, Other Focused Exam Lactate Level 03/18/19 14:50: Lactic Acid Level 1.29 Objective-Cardiology Exam Last Set of Vital Signs Vital Signs 03/21/19 08:57 Temp 36.5 Pulse 61 Resp 18 B/P (MAP) 128/66 (86) Pulse Ox 98 O2 Delivery Nasal Cannula O2 Flow Rate 3.00 Capillary Refill : Less Than 3 SecondsLess Than 3 Seconds I&O Intake and Output 03/21/19 00:00 Intake Total 2440 ml Output Total 1075 ml Balance 1365 ml Intake Oral 1440 ml IV Total 1000 ml Output Urine Total 1075 ml # Voids 2 # Bowel Movements 1 Daily Weight Change Unsure/Unresponsive General: Alert, Oriented X3, Cooperative HEENT: Atraumatic, PERRLA Neck: Supple, No JVD, No Thyromegaly Lungs: Clear to Auscultation, Normal Air Movement Heart: Regular Rate, Normal S1, Normal S2, No Murmurs Abdomen: Normal Bowel Sounds, Soft, No Tenderness, No Hepatosplenomegaly, No Ma sses Extremities: No Clubbing, No Cyanosis, No Edema, Normal Pulses, No Tenderness/Swelling Skin: No Rashes, No Breakdown, No Significant Lesion Neuro: Normal Gait, Normal Speech, Strength at 5/5 X4 Ext, Normal Tone, Sensation Intact Psych/Mental Status: Mental Status NL, Mood NL A/P-Cardiology Admission Diagnosis Chest pain Pneumonia Sepsis Sinus tachycardia Assessment/Plan Chest pain nonspecific etiology, atypical in presentation, EKG did not show any acute ischemic changes. Resolved. Continue to monitor, has been seen by Dr. Ballesteros in June 2018 and recommended stress test as an outpatient. Pneumonia, receiving antibiotic, managed by primary care team Bipolar disorder, schizophrenia. Managed by primary care team. Status post episode of tachycardia, currently in sinus rhythm. Continue to monitor his low-dose beta blockers and monitor Clinical Quality Measures AMI/AHF: ASA po Prior to arrival: No DVT/VTE Risk/Contraindication: Risk Factor Score Per Nursin RFS Level Per Nursing on Admit: 2=Moderate SILVA OGLESBY MD Mar 21, 2019 10:01
--- NOTE | 2019-03-21 11:03 | Progress Note - Hospitalist ---
Subjective HPI/CC On Admission Date Seen by Provider: Mar 21, 2019 Time Seen by Provider: 10:57 Subjective/Events-last exam Pt reports doing well. No complaints. More alert than yesterday. Focused Exam Lactate Level 03/18/19 14:50: Lactic Acid Level 1.29 Objective Exam Vital Signs Vital Signs Date Time Temp Pulse Resp B/P (MAP) Pulse Ox O2 Delivery O2 Flow Rate FiO2 03/21/19 08:57 36.5 61 18 128/66 (86) 98 Nasal Cannula 3.00 Capillary Refill : Less Than 3 SecondsLess Than 3 Seconds General Appearance: No Apparent Distress, Chronically ill Respiratory: Lungs Clear, No Respiratory Distress Cardiovascular: Regular Rate, Rhythm, No Murmur Results/Procedures Lab Patient resulted labs reviewed. Assessment/Plan Assessment and Plan Assess & Plan/Chief Complaint Pneumonia- Continue Gissel Acute mental status change- More alert today Schizophrenia- continue home meds Chest pain- cardiology consult, appreciate recs Clinical Quality Measures AMI/AHF: ASA po Prior to arrival: No DVT/VTE Risk/Contraindication: Risk Factor Score Per Nursin RFS Level Per Nursing on Admit: 2=Moderate LUIS BISHOP MD Mar 21, 2019 11:03
[2019-03-21] MEDS: RT-ALBUTEROL/IPRATROPIUM 3 ML (DUONEB) VIAL INH SCH ×3 (16:11→20:15)
[2019-03-21] MEDS: ENOXAPARIN 40 MG/0.4 ML (LOVENOX) SYR SC SCH (18:00)
[2019-03-21] MEDS: cefTRIAXone 1,000 MG/SWFI 10 ML IV PUSH IV SCH ×2 (18:00)
[2019-03-21] MEDS: GABAPENTIN 300 MG (NEURONTIN) CAP PO SCH (21:36)
[2019-03-22 04:00] VITALS: BP 99/63
[2019-03-22 05:02] VITALS: BP 99/63
[2019-03-22 08:00] VITALS: BP 104/66
[2019-03-22] MEDS ORDERED: RT-ALBUTEROL/IPRATROPIUM 3 ML (DUONEB) VIAL INH SCH ×2 (08:00→15:00)
[2019-03-22 08:19] VITALS: BP 99/63
--- NOTE | 2019-03-22 08:25 | Progress Note ---
Subjective Time Seen by a Provider: 08:23 Subjective/Events-last exam Patient improving. Patient more alert. Plan to discharge tomorrow Objective Exam Vital Signs Date Time Temp Pulse Resp B/P (MAP) Pulse Ox O2 Delivery O2 Flow Rate FiO2 03/22/19 07:00 65 03/22/19 05:02 36.4 66 16 99/63 (75) 95 Nasal Cannula 3.00 03/22/19 04:00 36.4 66 16 99/63 (75) 95 Nasal Cannula 3.00 03/22/19 00:43 61 03/21/19 23:47 36.8 66 16 92/61 (71) 99 Nasal Cannula 3.00 03/21/19 20:54 36.8 70 96 32 03/21/19 20:25 36.8 70 18 107/69 (82) 96 Nasal Cannula 3.00 03/21/19 20:15 96 Nasal Cannula 3.00 03/21/19 20:00 Nasal Cannula 3.00 03/21/19 18:45 67 03/21/19 16:16 93 Nasal Cannula 3.00 03/21/19 16:15 36.4 65 16 103/62 (76) 96 Nasal Cannula 3.00 03/21/19 12:20 66 03/21/19 12:14 36.8 62 18 122/71 (88) 98 Nasal Cannula 3.00 03/21/19 08:57 36.5 61 18 128/66 (86) 98 Nasal Cannula 3.00 I & O 03/22/19 07:00 Intake Total 1400 ml Output Total 1500 ml Balance -100 ml Capillary Refill : Less Than 3 SecondsLess Than 3 Seconds General Appearance: No Apparent Distress, WD/WN HEENT: Normal ENT Inspection Neck: Normal Inspection Respiratory: No Accessory Muscle Use, No Respiratory Distress, Decreased Breath Sounds Cardiovascular: Regular Rate, Rhythm, No Murmur Gastrointestinal: non tender, soft Results Lab Microbiology 03/18/19 Blood Culture - Preliminary, Resulted No growth 03/18/19 Urine Culture - Final, Complete NO GROWTH 03/18/19 Influenza Types A,B Antigen (GADIEL) - Final, Complete Assessment/Plan Assessment/Plan Assess & Plan/Chief Complaint Pneumonia. Sepsis. Acute mental status change. Schizophrenia. EPS Final Diagnosis Pneumonia. Sepsis. Acute mental status change. Gets up for anemia. EPS. Lethargic. Chest pain Clinical Quality Measures Admission Status Admission Dx Pneumonia. Sepsis. Altered mental status. Schizophrenia. EPS. Lethargy AMI/AHF: ASA po Prior to arrival: No DVT/VTE Risk/Contraindication: Risk Factor Score Per Nursin RFS Level Per Nursing on Admit: 2=Moderate TANI CRAFT DO Mar 22, 2019 08:25
[2019-03-22] MEDS: busPIRone 15 MG (BUSPAR) TABLET PO SCH (08:48)
[2019-03-22] MEDS: AZITHROMYCIN 250 MG TAB (ZITHROMAX) PO SCH (08:48)
[2019-03-22] MEDS: PROPRANOLOL 20 MG (INDERAL) TABLET PO SCH (08:48)
[2019-03-22] MEDS: cloZAPine 100 MG (CLOZARIL) TAB PO SCH (08:48)
[2019-03-22] MEDS: DIVALPROEX 250 MG DELAYED RELEASE (DEPAKOTE) TAB PO SCH (08:48)
--- NOTE | 2019-03-22 09:08 | Diagnostic Imaging Report ---
CLINICAL INDICATION: Follow-up pneumonia. EXAM: Portable chest x-ray upright AP view. COMPARISON: Portable chest x-ray dated 03/20/2019. FINDINGS: There is interval development of mild left basilar atelectasis versus infiltrate in the periphery of the left lung base. Remainder of the lungs are clear. There is no pleural effusion or pneumothorax. Pulmonary vasculature and cardiac silhouette within normal limits. There are degenerative spurs involving the thoracic spine. IMPRESSION: There is interval development of mild left basilar atelectasis versus infiltrate. Dictated by: Dictated on workstation # [id number]
[2019-03-22 10:20] LABS: HEMOGLOBIN 15.2 G/DL (13.3-17.7); MEAN PLATELET VOLUME 10.2 FL (7.4-10.4); RED CELL DISTRIBUTION WIDTH 13.2 % (10.0-14.5); WHITE BLOOD COUNT 7.9 10^3/uL (4.3-11.0)
[2019-03-22 10:43] LABS: ALANINE AMINOTRANSFERASE 113 U/L (0-55); ALBUMIN 3.5 GM/DL (3.2-4.5); ALKALINE PHOSPHATASE 110 U/L (40-136); BILIRUBIN,TOTAL 0.5 MG/DL (0.1-1.0); BUN/CREATININE RATIO 18; CALCIUM 8.8 MG/DL (8.5-10.1); CARBON DIOXIDE 25 MMOL/L (21-32); CHLORIDE 106 MMOL/L (98-107); GFR ESTIMATED > 60; GLUCOSE 146 MG/DL (70-105); POTASSIUM 4.2 MMOL/L (3.6-5.0); SODIUM 140 MMOL/L (135-145); TOTAL PROTEIN 7.3 GM/DL (6.4-8.2)
[2019-03-22] MEDS ORDERED: AZIT250T PO (11:22)
--- NOTE | 2019-03-22 11:55 | NUR ---
CM/SS visited with patient to assess for needs upon discharge. Plan: The patient will return back to the [facility]. The facility will bring the patient clothes for discharge. Finalized discharge orders were sent to the facility and the patients nurse was notified. The patient was sitting up in the chair upon arrival. He stated that he did not have any other needs and verbalized understanding that his ride was on his way.
--- NOTE | 2019-03-22 11:59 | NUR ---
ATTEMPTED TO CALL REPORT TO [facility]. TRANSFERRED TO THE NURSE-NO ANSWER.
[2019-03-22 12:00] VITALS: BP 117/69
--- NOTE | 2019-03-22 12:02 | NUR ---
ATTEMPTED TO CALL REPORT AGAIN. PUT ON HOLD TO TRANSFER TO NURSE THEN WAS DISCONNECTED.
[2019-03-22 12:25] VITALS: BP 117/69
--- NOTE | 2019-03-22 12:25 | NUR ---
[facility]. REPORT GIVEN TO CLARIBEL PUGA.
--- NOTE | 2019-03-23 08:44 | Discharge Summary ---
Diagnosis/Chief Complaint Date of Admission Mar 18, 2019 at 16:00 Date of Discharge Mar 22, 2019 at 12:25 Discharge Date: Mar 22, 2019 Discharge Diagnosis Pneumonia or Elevated liver tests. Acute mental status change. Bipolar. Schizophrenia. Chest discomfort. Sinus tach cardia. Sepsis. EPS. Weakness. Decreased eating and oral appetite Reason Hospital Visit Patient is a resident of a residential of [place]. I received a call from the nurse in [place] stating the patient is acting strangely. Patient not eating. Patient taking fluids. Patient lethargic. Patient recently discharged from [facility] psych unit. Patient has extrapyramidal symptoms According to the emergency room physician patient lethargic and not able to give a good history. Patient recognizes me. Patient not able to give good history. Patient has history of schizophrenia. Chest x-ray shows pneumonia. Patient meets criteria for sepsis Discharge Summary Consultations Cardiology Discharge Physical Examination Allergies: Coded Allergies: codeine (Verified Allergy, Unknown, 06/25/18) Vitals & I&Os Vital Signs Date Time Temp Pulse Resp B/P (MAP) Pulse Ox O2 Delivery O2 Flow Rate FiO2 03/22/19 12:25 36.9 69 20 117/69 95 Room Air 03/22/19 08:32 2.00 03/22/19 08:19 28 Hospital Course Patient hospital did improve. Patient discharge back to residential Labs (last 24 hrs) Laboratory Tests 03/18/19 14:50: White Blood Count 9.3, Red Blood Count 4.88, Hemoglobin 15.9, Hematocrit 46, Mean Corpuscular Volume 95, Mean Corpuscular Hemoglobin 33, Mean Corpuscular Hemoglobin Concent 34, Red Cell Distribution Width 12.9, Platelet Count 137, Mean Platelet Volume 10.2, Neutrophils (%) (Auto) 59, Lymphocytes (%) (Auto) 31, Monocytes (%) (Auto) 9, Eosinophils (%) (Auto) 1, Basophils (%) (Auto) 0, Neutrophils # (Auto) 5.5, Lymphocytes # (Auto) 2.9, Monocytes # (Auto) 0.8, Eosinophils # (Auto) 0.1, Basophils # (Auto) 0.0, Prothrombin Time 14.1, INR Comment 1.1, Activated Partial Thromboplast Time 24, Sodium Level 139, Potassium Level 3.6, Chloride Level 105, Carbon Dioxide Level 23, Anion Gap 11, Blood Urea Nitrogen 13, Creatinine 0.86, Estimat Glomerular Filtration Rate > 60, BUN/Creatinine Ratio 15, Glucose Level 144H, Lactic Acid Level 1.29, Calcium Level 8.8, Corrected Calcium 9.0, Magnesium Level 1.9, Total Bilirubin 0.7, Aspartate Amino Transf (AST/SGOT) 73H, Alanine Aminotransferase (ALT/SGPT) 126H, Alkaline Phosphatase 128, Total Creatine Kinase 58, Creatine Kinase MB 0.6, Myoglobin 27.2, Troponin I < 0.028, B-Type Natriuretic Peptide < 10.0, Total P rotein 7.6, Albumin 3.8, Amylase Level 41, Lipase 9, Valproic Acid (Depakene) Level < 2.0L 03/18/19 14:55: Urine Color YELLOW, Urine Clarity CLEAR, Urine pH 6.0, Urine Specific [place] 1.025H, Urine Protein NEGATIVE, Urine Glucose (UA) TRACEH, Urine Ketones NEGATIVE, Urine Nitrite NEGATIVE, Urine Bilirubin NEGATIVE, Urine Urobilinogen > =8.0, Urine Leukocyte Esterase NEGATIVE, Urine RBC (Auto) NEGATIVE, Urine RBC RARE, Urine WBC NONE, Urine Crystals NONE, Urine Bacteria NEGATIVE, Urine Casts NONE, Urine Mucus SMALLH, Urine Culture Indicated NO 03/18/19 16:00: Lab Scanned Report Referred Lab Report 03/19/19 04:40: White Blood Count 8.9, Red Blood Count 4.39, Hemoglobin 14.3, Hematocrit 42, Mean Corpuscular Volume 96, Mean Corpuscular Hemoglobin 33, Mean Corpuscular Hem oglobin Concent 34, Red Cell Distribution Width 13.2, Platelet Count 123L, Mean Platelet Volume 9.7, Neutrophils (%) (Auto) 44, Lymphocytes (%) (Auto) 44, Monocytes (%) (Auto) 9, Eosinophils (%) (Auto) 3, Basophils (%) (Auto) 1, Neutrophils # (Auto) 3.9, Lymphocytes # (Auto) 3.9, Monocytes # (Auto) 0.8, Eosinophils # (Auto) 0.2, Basophils # (Auto) 0.1, Sodium Level 137, Potassium Level 3.5L, Chloride Level 108H, Carbon Dioxide Level 20L, Anion Gap 9, Blood Urea Nitrogen 13, Creatinine 0.75, Estimat Glomerular Filtration Rate > 60, BUN/Creatinine Ratio 17, Glucose Level 130H, Calcium Level 8.1L, Corrected Calcium 8.7, Total Bilirubin 0.6, Aspartate Amino Transf (AST/SGOT) 57H, Alanine Aminotransferase (ALT/SGPT) 102H, Alkaline Phosphatase 112, Total Protein 6.6, Albumin 3.3, Triglycerides Level 105, Cholesterol Level 119, LDL Cholesterol Direct 84, VLDL Cholesterol 21, HDL Cholesterol 24L 03/19/19 14:45: Troponin I < 0.028 03/20/19 04:06: White Blood Count 8.6, Red Blood Count 4.47, Hemoglobin 14.4, Hematocrit 44, Mean Corpuscular Volume 98, Mean Corpuscular Hemoglobin 32, Mean Corpuscular Hemoglobin Concent 33, Red Cell Distribution Width 13.1, Platelet Count 135, Mean Platelet Volume 10.6H, Neutrophils (%) (Auto) 49, Lymphocytes (%) (Auto) 40, Monocytes (%) (Auto) 8, Eosinophils (%) (Auto) 3, Basophils (%) (Auto) 0, Neutrophils # (Auto) 4.2, Lymphocytes # (Auto) 3.5, Monocytes # (Auto) 0.7, Eosinophils # (Auto) 0.3, Basophils # (Auto) 0.0, Sodium Level 138, Potassium Level 4.0, Chloride Level 107, Carbon Dioxide Level 21, Anion Gap 10, Blood Urea Nitrogen 11, Creatinine 0.77, Estimat Glomerular Filtration Rate > 60, BUN/Creatinine Ratio 14, Glucose Level 109H, Calcium Level 8.3L, Corrected Calcium 8.8, Total Bilirubin 0.5, Aspartate Amino Transf (AST/SGOT) 60H, Alanine Aminotransferase (ALT/SGPT) 101H, Alkaline Phosphatase 99, Total Protein 6.6, Albumin 3.4 03/22/19 10:10: White Blood Count 7.9, Red Blood Count 4.67, Hemoglobin 15.2, Hematocrit 46, Mean Corpuscular Volume 98, Mean Corpuscular Hemoglobin 33, Mean Corpuscular Hemoglobin Concent 33, Red Cell Distribution Width 13.2, Platelet Count 131, Mean Platelet Volume 10.2, Sodium Level 140, Potassium Level 4.2, Chloride Level 106, Carbon Dioxide Level 25, Anion Gap 9, Blood Urea Nitrogen 18, Creatinine 1.00, Estimat Glomerular Filtration Rate > 60, BUN/Creatinine Ratio 18, Glucose Level 146H, Calcium Level 8.8, Corrected Calcium 9.2, Total Bilirubin 0.5, Aspartate Amino Transf (AST/SGOT) 74H, Alanine Aminotransferase (ALT/SGPT) 113H, Alkaline Phosphatase 110, Total Protein 7.3, Albumin 3.5 Microbiology 03/18/19 Blood Culture - Preliminary, Resulted No growth 03/18/19 Urine Culture - Final, Complete NO GROWTH 03/18/19 Influenza Types A,B Antigen (GADIEL) - Final, Complete Laboratory Tests 03/18/19 14:50 03/19/19 04:40 03/20/19 04:06 03/22/19 10:10 Pending Labs Microbiology Date/Time Source Procedure Growth Status 03/18/19 15:15 Peripheral Rt Hand Blood Culture - Preliminary No growth Resulted 03/18/19 14:55 Urine Clean Catch Urine Culture - Final NO GROWTH Complete 03/18/19 14:55 Nasopharynx Influenza Types A,B Antigen (GADIEL) - Final Complete 03/18/19 14:50 Peripheral Lt Hand Blood Culture - Preliminary No growth Resulted Laboratory Tests 03/18/19 14:50: White Blood Count 9.3, Red Blood Count 4.88, Hemoglobin 15.9, Hematocrit 46, Mean Corpuscular Volume 95, Mean Corpuscular Hemoglobin 33, Mean Corpuscular Hemoglobin Concent 34, Red Cell Distribution Width 12.9, Platelet Count 137, Mean Platelet Volume 10.2, Neutrophils (%) (Auto) 59, Lymphocytes (%) (Auto) 31, Monocytes (%) (Auto) 9, Eosinophils (%) (Auto) 1, Basophils (%) (Auto) 0, Neutrophils # (Auto) 5.5, Lymphocytes # (Auto) 2.9, Monocytes # (Auto) 0.8, Eosinophils # (Auto) 0.1, Basophils # (Auto) 0.0, Prothrombin Time 14.1, INR Comment 1.1, Activated Partial Thromboplast Time 24, Sodium Level 139, Potassium Level 3.6, Chloride Level 105, Carbon Dioxide Level 23, Anion Gap 11, Blood Urea Nitrogen 13, Creatinine 0.86, Estimat Glomerular Filtration Rate > 60, BUN/Creatinine Ratio 15, Glucose Level 144, Lactic Acid Level 1.29, Calcium Level 8.8, Corrected Calcium 9.0, Magnesium Level 1.9, Total Bilirubin 0.7, Aspartate Amino Transf (AST/SGOT) 73, Alanine Aminotransferase (ALT/SGPT) 126, Alkaline Phosphatase 128, Total Creatine Kinase 58, Creatine Kinase MB 0.6, Myoglobin 27.2, Troponin I < 0.028, B-Type Natriuretic Peptide < 10.0, Total Protein 7.6, Albumin 3.8, Amylase Level 41, Lipase 9, Valproic Acid (Depakene) Level < 2.0 03/18/19 14:55: Urine Color YELLOW, Urine Clarity CLEAR, Urine pH 6.0, Urine Specific [place] 1.025, Urine Protein NEGATIVE, Urine Glucose (UA) TRACE, Urine Ketones NEGATIVE, Urine Nitrite NEGATIVE, Urine Bilirubin NEGATIVE, Urine Urobilinogen >=8.0, U rine Leukocyte Esterase NEGATIVE, Urine RBC (Auto) NEGATIVE, Urine RBC RARE, Urine WBC NONE, Urine Crystals NONE, Urine Bacteria NEGATIVE, Urine Casts NONE, Urine Mucus SMALL, Urine Culture Indicated NO 03/18/19 16:00: Lab Scanned Report Referred Lab Report 03/19/19 04:40: White Blood Count 8.9, Red Blood Count 4.39, Hemoglobin 14.3, Hematocrit 42, Mean Corpuscular Volume 96, Mean Corpuscular Hemoglobin 33, Mean Corpuscular Hemoglobin Concent 34, Red Cell Distribution Width 13.2, Platelet Count 123, Mean Platelet Volume 9.7, Neutrophils (%) (Auto) 44, Lymphocytes (%) (Auto) 44, Monocytes (%) (Auto) 9, Eosinophils (%) (Auto) 3, Basophils (%) (Auto) 1, N eutrophils # (Auto) 3.9, Lymphocytes # (Auto) 3.9, Monocytes # (Auto) 0.8, Eosinophils # (Auto) 0.2, Basophils # (Auto) 0.1, Sodium Level 137, Potassium Level 3.5, Chloride Level 108, Carbon Dioxide Level 20, Anion Gap 9, Blood Urea Nitrogen 13, Creatinine 0.75, Estimat Glomerular Filtration Rate > 60, BUN/Creatinine Ratio 17, Glucose Level 130, Calcium Level 8.1, Corrected Calcium 8.7, Total Bilirubin 0.6, Aspartate Amino Transf (AST/SGOT) 57, Alanine Aminotransferase (ALT/SGPT) 102, Alkaline Phosphatase 112, Total Protein 6.6, Albumin 3.3, Triglycerides Level 105, Cholesterol Level 119, LDL Cholesterol Direct 84, VLDL Cholesterol 21, HDL Cholesterol 24 03/19/19 14:45: Troponin I < 0.028 03/20/19 04:06: White Blood Count 8.6, Red Blood Count 4.47, Hemoglobin 14.4, Hematocrit 44, Mean Corpuscular Volume 98, Mean Corpuscular Hemoglobin 32, Mean Corpuscular Hemoglobin Concent 33, Red Cell Distribution Width 13.1, Platelet Count 135, Mean Platelet Volume 10.6, Neutrophils (%) (Auto) 49, Lymphocytes (%) (Auto) 40, Monocytes (%) (Auto) 8, Eosinophils (%) (Auto) 3, Basophils (%) (Auto) 0, Neutrophils # (Auto) 4.2, Lymphocytes # (Auto) 3.5, Monocytes # (Auto) 0.7, Eosinophils # (Auto) 0.3, Basophils # (Auto) 0.0, Sodium Level 138, Potassium Level 4.0, Chloride Level 107, Carbon Dioxide Level 21, Anion Gap 10, Blood Urea Nitrogen 11, Creatinine 0.77, Estimat Glomerular Filtration Rate > 60, BUN/Creatinine Ratio 14, Glucose Level 109, Calcium Level 8.3, Corrected Calcium 8.8, Total Bilirubin 0.5, Aspartate Amino Transf (AST/SGOT) 60, Alanine Aminotransferase (ALT/SGPT) 101, Alkaline Phosphatase 99, Total Protein 6.6, Albumin 3.4 03/22/19 10:10: White Blood Count 7.9, Red Blood Count 4.67, Hemoglobin 15.2, Hematocrit 46, Mean Corpuscular Volume 98, Mean Corpuscular Hemoglobin 33, Mean Corpuscular Hemoglobin Concent 33, Red Cell Distribution Width 13.2, Platelet Count 131, Mean Platelet Volume 10.2, Sodium Level 140, Potassium Level 4.2, Chloride Level 106, Carbon Dioxide Level 25, Anion Gap 9, Blood Urea Nitrogen 18, Creatinine 1.00, Estimat Glomerular Filtration Rate > 60, BUN/Creatinine Ratio 18, Glucose Level 146, Calcium Level 8.8, Corrected Calcium 9.2, Total Bilirubin 0.5, Aspartate Amino Transf (AST/SGOT) 74, Alanine Aminotransferase (ALT/SGPT) 113, Alkaline Phosphatase 110, Total Protein 7.3, Albumin 3.5 Discharge Home Medications: Active Scripts Active Zithromax (Azithromycin) 250 Mg Tablet 250 Mg PO DAILY 3 Days Reported Vitamin B-1 (Thiamine HCl) 50 Mg Tablet 100 Mg PO DAILY TAKES 2 (50MG) TABLETS Tramadol HCl 50 Mg Tablet 50 Mg PO Q12H PRN Loratadine 10 Mg Tablet 10 Mg PO DAILY Lactulose 20 Gm/30 Ml Solution 30 Ml PO BID Gabapentin 300 Mg Capsule 300 Mg PO HS Depakote (Divalproex Sodium) 250 Mg Tablet. 250 Mg PO TID Combivent Respimat Inhal [place] (Albuterol/Ipratropium) 4 Gm Aero 2 Puff INH TID Clozapine 50 Mg Tablet 50 Mg PO BID Centrum Chewables Adults Tab (Multivit-Min/Iron/Folic/Vit K1) 1 Each Tab.chew 1 Tab PO DAILY Buspirone HCl 7.5 Mg Tablet 7.5 Mg PO BID Amantadine (Amantadine HCl) 100 Mg Tablet 100 Mg PO BID Triamcinolone Acetonide 0.1% Cream (Triamcinolone Acet) 15 Gm Cr TP TID APPLY TO UPPER CHEST AND BACK Senna (Sennosides) 8.6 Mg Tablet 8.6 Mg PO HS Propranolol HCl 20 Mg Tablet 30 Mg PO TID TAKES 1 & 1/2 (20MG) TABLET HOLD FOR SBP <100 Miralax (Polyethylene Glycol 3350) 17 Gm Powd.pack 17 Gm PO DAILY Iprat-Albut 0.5-3(2.5) mg/3 ml (Ipratropium/Albuterol Sulfate) 3 Ml Ampul.neb 3 Ml NEB TID Iprat-Albut 0.5-3(2.5) mg/3 ml (Ipratropium/Albuterol Sulfate) 3 Ml Ampul.neb 3 Ml IH Q6H PRN Aspirin EC (Aspirin) 81 Mg Tablet. 81 Mg PO DAILY Instructions to patient/family Please see electronic discharge instructions given to patient. Clinical Quality Measures AMI/AHF: ASA po Prior to arrival: No DVT/VTE Risk/Contraindication: Risk Factor Score Per Nursin RFS Level Per Nursing on Admit: 2=Moderate TANI CRAFT DO Mar 23, 2019 08:44
--- NOTE | 2019-03-24 07:23 | Progress Note ---
Progress Note Assessment/Plan Time Seen by Provider: 07:22 Events since last exam The same Assessment/Plan Pneumonia. Sepsis. Acute mental status change. Schizophrenia. EPS Vitals Last set of Vitals Signs Vital Signs Date Time Temp Pulse Resp B/P (MAP) Pulse Ox O2 Delivery O2 Flow Rate FiO2 03/22/19 12:25 36.9 69 20 117/69 95 Room Air 03/22/19 08:32 2.00 03/22/19 08:19 28 Labs Microbiology 03/18/19 Blood Culture - Preliminary, Resulted No growth 03/18/19 Urine Culture - Final, Complete NO GROWTH 03/18/19 Influenza Types A,B Antigen (GADIEL) - Final, Complete Clinical Quality Measures Admission Status Admission Dx Pneumonia. Sepsis. Altered mental status. Schizophrenia. EPS. Lethargy AMI/AHF: ASA po Prior to arrival: No DVT/VTE Risk/Contraindication: Risk Factor Score Per Nursin RFS Level Per Nursing on Admit: 2=Moderate TANI CRAFT DO Mar 24, 2019 07:23
== END 2019-03-22 12:25 | DRG 871 ==
LOC: EDUNIT# 14:42 → ER 14:43 → 4TH 16:00
PROVIDERS: ADMIT Family Medicine; ATTEND Family Medicine
DX: A41.9 Sepsis, unspecified organism (principal); J18.9 Pneumonia, unspecified organism; G25.9 Extrapyramidal and movement disorder, unspecified; R53.1 Weakness; R26.9 Unspecified abnormalities of gait and mobility; I10 Essential (primary) hypertension; J44.9 Chronic obstructive pulmonary disease, unspecified; M19.91 Primary osteoarthritis, unspecified site; F41.9 Anxiety disorder, unspecified; F31.9 Bipolar disorder, unspecified; F20.9 Schizophrenia, unspecified; R07.9 Chest pain, unspecified; Z87.891 Personal history of nicotine dependence
CPT/HCPCS: 36415; 71045; 80053; 80061; 80164; 81000; 82150; 82550; 82553; 83605; 83690; 83735; 83874; 83880; 84484; 85025; 85027; 85610; 85730; 87040; 87088; 87804; 93005; 93041; 94640

== ENCOUNTER → 2019-03-25 | Outpatient (CLI) | payer MEDICARE, MEDICAID ==
[~2019-03-25] MED LIST changes: +AMAN100T PO; +AZIT250T PO; +BUSP7.5T5 PO; +CLOZ50TA PO; +DIVA250T2 PO; +GABA-488 PO; +IPRA4AER INH; +LACT20SO2 PO; +LORA10TA7 PO; +MULT-1112 PO; +THIA100T68 PO; +THIA50TA10 PO; +TRM50T PO
--- NOTE | 2019-03-25 12:56 | Diagnostic Imaging Report ---
INDICATION: Pneumonia, follow-up. TIME OF EXAM: 12:30 p.m. Correlation is made with prior chest from 03/22/2019. FINDINGS: Heart size is stable. Lungs appear to be clear on this current exam. The pulmonary vascularity is normal. No infiltrate, effusion, or pneumothorax is detected. IMPRESSION: No acute cardiopulmonary process is detected. Dictated by: Dictated on workstation # [id number]
== END ==
LOC: RAD 12:18
PROVIDERS: ATTEND Family Medicine
DX: J18.9 Pneumonia, unspecified organism (principal)
CPT/HCPCS: 71045

== ENCOUNTER → 2019-05-10 | Outpatient (CLI) | payer MEDICAID ==
[2019-05-10 10:27] LABS: ALBUMIN 3.4 GM/DL (3.2-4.5); BILIRUBIN,DIRECT 0.4 MG/DL (0.0-0.3); BILIRUBIN,INDIRECT 0.4 MG/DL; BILIRUBIN,TOTAL 0.8 MG/DL (0.1-1.0); TOTAL PROTEIN 7.3 GM/DL (6.4-8.2)
== END ==
LOC: LAB 09:42
PROVIDERS: ATTEND Family Medicine
DX: K74.60 Unspecified cirrhosis of liver (principal)
CPT/HCPCS: 36415; 80076; 82140

== ENCOUNTER 2020-02-11 09:37 | Outpatient (RCR) | payer MEDICARE, MEDICAID ==
[~2020-02-11 09:37] MED LIST changes: +ASPI-1238 PO; -ASPI-983 PO; -SENN-141 PO; +SENN-234 PO
[2020-02-11 10:42] LABS: BASOPHILS % (AUTO) 0 % (0-10); EOSINOPHILS # (AUTO) 0.1 10^3/uL (0.0-0.3); EOSINOPHILS % (AUTO) 2 % (0-10)
[2020-02-11 10:45] LABS: ABSOLUTE RETIC # 65 10e9/uL (24-90); HEMATOCRIT 45 % (40-54); LYMPHOCYTES # (AUTO) 2.2 10^3/uL (1.0-4.0); LYMPHOCYTES % (AUTO) 39 % (12-44); MEAN CORPUSCULAR HEMOGLOBIN 32 pg (25-34); MEAN CORPUSCULAR HGB CONC 33 g/dL (32-36); MEAN CORPUSCULAR VOLUME 97 fL (80-99); MONOCYTES # (AUTO) 0.5 10^3/uL (0.0-1.0); MONOCYTES % (AUTO) 8 % (0-12); NEUTROPHILS # (AUTO) 2.9 10^3/uL (1.8-7.8); NEUTROPHILS % (AUTO) 51 % (42-75); PLATELET COUNT 92 10^3/uL (130-400); RETICULOCYTE % 1.39 % (0.50-2.40); WHITE BLOOD COUNT 5.8 10^3/uL (4.3-11.0)
[2020-02-11 11:04] LABS: ALANINE AMINOTRANSFERASE 107 U/L (0-55); ALBUMIN 3.5 GM/DL (3.2-4.5); ALKALINE PHOSPHATASE 84 U/L (40-136); BILIRUBIN,TOTAL 0.7 MG/DL (0.1-1.0); BUN/CREATININE RATIO 12; CALCIUM 8.6 MG/DL (8.5-10.1); CARBON DIOXIDE 25 MMOL/L (21-32); CHLORIDE 103 MMOL/L (98-107); CREATININE SERUM 0.93 MG/DL (0.60-1.30); GFR ESTIMATED > 60; GLUCOSE 160 MG/DL (70-105); POTASSIUM 3.7 MMOL/L (3.6-5.0); SODIUM 139 MMOL/L (135-145); TOTAL PROTEIN 7.4 GM/DL (6.4-8.2)
[2020-02-11 22:08] LABS: HEPATITIS C ANTIBODY C Reactive (Non-Reactive)
[2020-02-14] MEDS ORDERED: GABA300C PO (10:54)
[2020-02-14] MEDS ORDERED: MOM10U PO (10:54)
[2020-02-14] MEDS ORDERED: MULT-1136 PO (10:54)
[2020-02-14] MEDS ORDERED: FURO40TA4 PO (10:54)
[2020-02-14] MEDS ORDERED: SCOP1PAT11 TD (10:54)
[2020-02-14] MEDS ORDERED: DOCU100C37 PO (10:54)
[2020-02-16] MEDS ORDERED: CEFD300C3 PO (10:14)
== END 2020-03-13 09:21 | disposition home or self-care (01) ==
LOC: ONC 09:37
PROVIDERS: ATTEND Internal Medicine Hematology & Oncology
DX: C43.9 Malignant melanoma of skin, unspecified (principal); D69.6 Thrombocytopenia, unspecified; B19.20 Unspecified viral hepatitis C without hepatic coma; F99 Mental disorder, not otherwise specified; E11.9 Type 2 diabetes mellitus without complications; J44.9 Chronic obstructive pulmonary disease, unspecified; F17.210 Nicotine dependence, cigarettes, uncomplicated; I10 Essential (primary) hypertension; Z80.1 Family history of malignant neoplasm of trachea, bronchus and lung; Z80.8 Family history of malignant neoplasm of other organs or systems
CPT/HCPCS: 80053; 80074; 82105; 82607; 82728; 82746; 83540; 83615; 83883; 84165; 85025; 85045; G0463; 84155; 99214

== ENCOUNTER 2020-02-13 02:58 | Inpatient (IN) | payer MEDICARE, MEDICAID ==
[~2020-02-13] VITALS: Ht 175 cm; Wt 128.7 kg
[2020-02-13] MEDS ORDERED: ACETAMINOPHEN 500 MG TAB (TYLENOL) PO PRN (03:15)
[2020-02-13 03:30] LABS: MONOCYTES # (AUTO) 0.9 10^3/uL (0.0-1.0)
[2020-02-13 03:32] LABS: BASOPHILS % (AUTO) 0 % (0-10); EOSINOPHILS % (AUTO) 0 % (0-10); HEMATOCRIT 45 % (40-54); HEMOGLOBIN 15.1 g/dL (13.3-17.7); LYMPHOCYTES # (AUTO) 1.9 10^3/uL (1.0-4.0); LYMPHOCYTES % (AUTO) 15 % (12-44); MEAN CORPUSCULAR HEMOGLOBIN 33 pg (25-34); MEAN CORPUSCULAR HGB CONC 34 g/dL (32-36); MEAN CORPUSCULAR VOLUME 96 fL (80-99); MONOCYTES % (AUTO) 7 % (0-12); NEUTROPHILS % (AUTO) 78 % (42-75); PLATELET COUNT 92 10^3/uL (130-400); WHITE BLOOD COUNT 12.8 10^3/uL (4.3-11.0)
[2020-02-13 03:49] LABS: ALBUMIN 3.6 GM/DL (3.2-4.5); CHLORIDE 100 MMOL/L (98-107); SODIUM 135 MMOL/L (135-145)
[2020-02-13 03:50] LABS: CALCIUM 8.2 MG/DL (8.5-10.1)
[2020-02-13 03:51] LABS: GLUCOSE 172 MG/DL (70-105)
[2020-02-13 03:52] LABS: TOTAL PROTEIN 7.5 GM/DL (6.4-8.2)
[2020-02-13 03:53] LABS: BILIRUBIN,TOTAL 0.7 MG/DL (0.1-1.0); CARBON DIOXIDE 23 MMOL/L (21-32); FIBRIN DEGRADATION PRODUCTS 0.55 UG/ML (0.00-0.49); INR 1.1 (0.8-1.4); PROTHROMBIN TIME PATIENT 14.6 SEC (12.2-14.7)
[2020-02-13 03:55] LABS: ALKALINE PHOSPHATASE 88 U/L (40-136); CREATININE SERUM 1.01 MG/DL (0.60-1.30); GFR ESTIMATED > 60
[2020-02-13 03:56] LABS: BUN/CREATININE RATIO 15
[2020-02-13 03:58] LABS: ALANINE AMINOTRANSFERASE 108 U/L (0-55)
[2020-02-13] MEDS ORDERED: NS IV 1000 ML 1,000 ML ONE (04:12)
[2020-02-13] MEDS ORDERED: LACTATED RINGERS 1,000 ML IV STA (04:23)
[2020-02-13] MEDS ORDERED: LACTATED RINGERS 1,000 ML IV ONE ×2 (04:30)
[2020-02-13] MEDS ORDERED: CEFEPIME INJECTION 1,000 MG in WATER (STERILE) FOR INJECTION 10 ML IV ONE (05:45)
[2020-02-13] MEDS: VANCOMYCIN INJECTION 1,000 MG in NS (IVPB) 250 ML IV SCH ×2 (05:51→07:21)
[2020-02-13] MEDS ORDERED: RT-ALBUTEROL INHALER HFA (VENTOLIN HFA) 18 GM IH SCH (06:00)
--- NOTE | 2020-02-13 06:06 | ED General ---
General Chief Complaint: Respiratory Problems Stated Complaint: SOB Nursing Triage Note: Patient presented to the ER today via EMS with complaints of shortness of breath. Facility staff advise that the patient has been febrile, complaining of a headache and increasing shortness of breath. Patient was administered a breathing tx per his pcp order with little improvement. Patient Spo2 on 3L is 93% upon arrival. Nursing Sepsis Screen: Possible Severe Sepsis Risk Source of Information: Patient Exam Limitations: No Limitations History of Present Illness Date Seen by Provider: Feb 13, 2020 Time Seen by Provider: 03:15 Initial Comments Here by EMS with report of shortness of air and fever. Patient resides at a [place] [facility]. This facility currently is not affected by COVID-19 and they have been doing twice weekly testing of residents and staff. Currently no positives. Patient does have history of COPD and has had pneumonia previously. He is weakend due to underlying medical problems including previous stroke. Patient denies pain. Does admit to runny nose and sore throat. Timing/Duration: 4-6 Hours Severity: Moderate Modifying Factors: improves with Other (Oxygen) Associated Systoms: Cough, Fever/Chills; No Nausea/Vomiting; Shortness of Air, Weakness Allergies and Home Medications Allergies Coded Allergies: codeine (Verified Allergy, Unknown, 06/25/18) Home Medications Albuterol/Ipratropium 4 Gm Aero, 2 PUFF INH TID, (Reported) Amantadine HCl 100 Mg Tablet, 100 MG PO BID, (Reported) Aspirin 81 Mg Tablet.dr, 81 MG PO DAILY, (Reported) Azithromycin 250 Mg Tablet, 250 MG PO DAILY Prescribed by: LILLIAN LOCKHART on 03/22/19 1122 Buspirone HCl 7.5 Mg Tablet, 7.5 MG PO BID, (Reported) Clozapine 50 Mg Tablet, 50 MG PO BID, (Reported) Divalproex Sodium 250 Mg Tablet.dr, 250 MG PO TID, (Reported) Gabapentin 300 Mg Capsule, 300 MG PO HS, (Reported) Ipratropium/Albuterol Sulfate 3 Ml Ampul.neb, 3 ML IH Q6H PRN for SHORTNESS OF BREATH, (Reported) Ipratropium/Albuterol Sulfate 3 Ml Ampul.neb, 3 ML NEB TID, (Reported) Lactulose 20 Gm/30 Ml Solution, 30 ML PO BID, (Reported) Loratadine 10 Mg Tablet, 10 MG PO DAILY, (Reported) Multivit-Min/Iron/Folic/Vit K1 1 Each Tab.chew, 1 TAB PO DAILY, (Reported) Polyethylene Glycol 3350 17 Gm Powd.pack, 17 GM PO DAILY, (Reported) Propranolol HCl 20 Mg Tablet, 30 MG PO TID, (Reported) TAKES 1 & 1/2 (20MG) TABLET HOLD FOR SBP <100 Sennosides 8.6 Mg Tablet, 8.6 MG PO HS, (Reported) Thiamine HCl 50 Mg Tablet, 100 MG PO DAILY, (Reported) TAKES 2 (50MG) TABLETS Tramadol HCl 50 Mg Tablet, 50 MG PO Q12H PRN for PAIN-MODERATE (5-7), (Reported) Triamcinolone Acet 15 Gm Cr, TP TID, (Reported) APPLY TO UPPER CHEST AND BACK Patient Home Medication List Home Medication List Reviewed: Yes Review of Systems Review of Systems Constitutional: see HPI; No chills; fever, weakness EENTM: see HPI Respiratory: see HPI Cardiovascular: No chest pain, No edema Gastrointestinal: No abdominal pain; constipation; No nausea, No vomiting Genitourinary: No dysuria, No pain Musculoskeletal: No muscle pain; muscle weakness Skin: no symptoms reported Psychiatric/Neurological: No Symptoms Reported All Other Systems Reviewed Negative Unless Noted: Yes Past Jbuxuaf-Szmual-Fhsrtu Hx Past Med/Social Hx: Reviewed Nursing Past Med/Soc Hx Patient Social History Alcohol Use: Occasionally Uses Recreational Drug Use: No Smoking Status: Current Someday Smoker Type Used: Pipe Recent Foreign Travel: No Contact w/Someone Who Travel: No Recent Infectious Disease Expo: No Recent Hopitalizations: No Immunizations Up To Date Date of Pneumonia Vaccine: Dec 25, 2016 Seasonal Allergies Seasonal Allergies: No Past Medical History Surgeries: No (UNKNOWN) Respiratory: Yes COPD Cardiac: Yes Hypertension Neurological: Yes (GENERALIZED WEAKNESS;GAIT DISTURBANCE;"CONVULSIONS";EXTRAPYRAMIDAL SYMPTOMS) Reproductive Disorders: No Genitourinary: No Gastrointestinal: No Musculoskeletal: Yes (GENERALIZED PAIN, GENERALIZED WEAKNESS, GAIT DISTURBANCE) Arthritis Endocrine: No HEENT: No Cancer: No Psychosocial: Yes Anxiety, Bipolar, Schizophrenia, Depression Integumentary: No Blood Disorders: No Family Medical History Reviewed Nursing Family Hx TREMORS/NON-SPECIFIC MOVEMENT DISORDER/EXTRAPYRAMIDAL SYMPTOMS Physical Exam-Suspected Sepsis Physical Exam Vital Signs Vital Signs - First Documented 02/13/20 03:10 Temp 38.7 Pulse 86 Resp 24 B/P (MAP) 109/61 Pulse Ox 93 O2 Delivery Nasal Cannula O2 Flow Rate 3.00 FiO2 100 Capillary Refill : Less Than 3 Seconds Blood Pressure Mean: 81 Height, Weight, BMI Height: 5'9.00" Weight: 250lbs. 4.8oz. [id number]; 35.00 BMI Method:Stated General Appearance: Mild Distress, Obese HEENT: PERRL/EOMI, TMs Normal, Pharyngeal Erythema Neck: Non Tender, Supple Respiratory: Crackles (Bilateral bases left greater than right), Decreased Breath Sounds Cardiovascular: Regular Rate, Rhythm, No Murmur Gastrointestinal: Non Tender, Soft Back: Normal Inspection, No CVA Tenderness, No Vertebral Tenderness Extremity: Non Tender, No Calf Tenderness, No Pedal Edema Neurologic/Psychiatric: Alert, Oriented x3 Skin: normal color, warm/dry Focused Exam Lactate Level 02/13/20 03:10: Lactic Acid Level 2.34*H 02/13/20 05:30: Lactic Acid Level Laboratory Tests Test 02/13/20 03:10 02/13/20 05:30 Lactic Acid Level 2.34 MMOL/L (0.50-2.00) *H Progress/Results/Core Measures Suspected Sepsis Recent Fever Within 48 Hours: Yes Infection Criteria Present: Suspected New Infection New/Unexplained Altered Menta: Yes Sepsis Screen: Possible Severe Sepsis Risk SIRS Temperature: Pulse: 85 Respiratory Rate: 22 Laboratory Tests 02/13/20 03:10: White Blood Count 12.8H Blood Pressure 111 /66 Mean: 81 02/13/20 03:10: Lactic Acid Level 2.34*H 02/13/20 05:30: Laboratory Tests 02/13/20 03:10: Creatinine 1.01, INR Comment 1.1, Platelet Count 92L, Total Bilirubin 0.7 Results/Orders Lab Results Laboratory Tests Test 02/13/20 03:10 02/13/20 03:12 02/13/20 05:00 02/13/20 05:30 Range/Units White Blood Count 12.8 H 4.3-11.0 10^3/uL Red Blood Count 4.64 4.30-5.52 10^6/uL Hemoglobin 15.1 13.3-17.7 g/dL Hematocrit 45 40-54 % Mean Corpuscular Volume 96 80-99 fL Mean Corpuscular Hemoglobin 33 25-34 pg Mean Corpuscular Hemoglobin Concent 34 32-36 g/dL Red Cell Distribution Width 12.5 10.0-14.5 % Platelet Count 92 L 130-400 10^3/uL Mean Platelet Volume 11.0 9.0-12.2 fL Immature Granulocyte % (Auto) 0 % Neutrophils (%) (Auto) 78 H 42-75 % Lymphocytes (%) (Auto) 15 12-44 % Monocytes (%) (Auto) 7 0-12 % Eosinophils (%) (Auto) 0 0-10 % Basophils (%) (Auto) 0 0-10 % Neutrophils # (Auto) 10.0 H 1.8-7.8 10^3/uL Lymphocytes # (Auto) 1.9 1.0-4.0 10^3/uL Monocytes # (Auto) 0.9 0.0-1.0 10^3/uL Eosinophils # (Auto) 0.0 0.0-0.3 10^3/uL Basophils # (Auto) 0.0 0.0-0.1 10^3/uL Immature Granulocyte # (Auto) 0.0 0.0-0.1 10^3/uL Prothrombin Time 14.6 12.2-14.7 SEC INR Comment 1.1 0.8-1.4 Activated Partial Thromboplast Time 28 24-35 SEC D-Dimer 0.55 H 0.00-0.49 UG/ML Sodium Level 135 135-145 MMOL/L Potassium Level 4.0 3.6-5.0 MMOL/L Chloride Level 100 98-107 MMOL/L Carbon Dioxide Level 23 21-32 MMOL/L Anion Gap 12 5-14 MMOL/L Blood Urea Nitrogen 15 7-18 MG/DL Creatinine 1.01 0.60-1.30 MG/DL Estimat Glomerular Filtration Rate > 60 BUN/Creatinine Ratio 15 Glucose Level 172 H 70-105 MG/DL Lactic Acid Level 2.34 *H 0.50-2.00 MMOL/L Calcium Level 8.2 L 8.5-10.1 MG/DL Corrected Calcium 8.5 8.5-10.1 MG/DL Total Bilirubin 0.7 0.1-1.0 MG/DL Aspartate Amino Transf (AST/SGOT) 71 H 5-34 U/L Alanine Aminotransferase (ALT/SGPT) 108 H 0-55 U/L Alkaline Phosphatase 88 40-136 U/L Troponin I < 0.028 <0.028 NG/ML C-Reactive Protein High Sensitivity 0.93 H 0.00-0.50 MG/DL Total Protein 7.5 6.4-8.2 GM/DL Albumin 3.6 3.2-4.5 GM/DL Procalcitonin 0.37 H <0.10 NG/ML Coronavirus 2019 (YEHUDA) Negative Negative Micro Results Microbiology 02/13/20 Influenza Types A,B Antigen (GADIEL) - Final, Complete My Orders Orders - JOSEFINA CASSIDY MD Cbc With Automated Diff (02/13/20 03:13) Comprehensive Metabolic Panel (02/13/20 03:13) Blood Culture (02/13/20 03:13) Sputum Culture (02/13/20 03:13) Urinalysis (02/13/20 03:13) Urine Culture (02/13/20 03:13) Protime With Inr (02/13/20 03:13) Partial Thromboplastin Time (02/13/20 03:13) Chest 1 View, Ap/Pa Only (02/13/20 03:13) Acetaminophen Tablet (Tylenol Tablet) (02/13/20 03:15) Troponin I (02/13/20 03:13) Vital Signs Adult Sepsis Patie Q15M (02/13/20 03:13) O2 (02/13/20 03:13) Remove Rings In Anticipation O (02/13/20 03:13) Lactic Acid Analyzer (02/13/20 03:13) Influenza A And B Antigens (02/13/20 03:13) Fibrin Degradation Products (02/13/20 03:13) Procalcitonin (Pct) (02/13/20 03:13) Hs C Reactive Protein (02/13/20 03:13) Covid 19 Inhouse Test (02/13/20 03:13) Albuterol Inhaler (Ventolin Hfa) (02/13/20 06:00) Coronavirus Sars-Cov-2 So 2018 (02/13/20 04:05) Ns Iv 1000 Ml (Sodium Chloride 0.9%) (02/13/20 04:12) Lactated Ringers (Lr 1000 Ml Iv Solution (02/13/20 04:30) Lactated Ringers (Lr 1000 Ml Iv Solution (02/13/20 04:23) Vancomycin Injection (Vancomycin Injecti (02/13/20 05:45) Cefepime Injection (Maxipime Injection) (02/13/20 05:45) Medications Given in ED Current Medications Medications Dose Ordered Sig/Jose M Route Start Time Stop Time Status Last Admin Dose Admin Acetaminophen 1,000 mg ONCE PRN PO 02/13/20 03:15 02/13/20 03:51 DC 02/13/20 03:50 1,000 MG Cefepime HCl 1000 mg/Sterile Water 10 ml @ 200 mls/hr ONCE ONCE IV 02/13/20 05:45 02/13/20 05:47 DC 02/13/20 05:49 200 MLS/HR Sodium Chloride 1,000 ml @ ud STK-MED ONCE .ROUTE 02/13/20 04:12 02/13/20 04:15 DC 02/13/20 04:53 0 MLS/HR Vital Signs/I&O 02/13/20 02/13/20 02/13/20 02/13/20 03:10 03:10 03:36 03:50 Temp 38.7 38.7 38.7 Pulse 86 85 Resp 24 22 B/P (MAP) 109/61 111/66 (81) Pulse Ox 93 93 93 O2 Delivery Nasal Cannula Nasal Cannula Nasal Cannula O2 Flow Rate 3.00 3.00 3.00 FiO2 100 Capillary Refill : Less Than 3 Seconds Blood Pressure Mean: 81 Progress Note : Progress Note Seen and evaluated. Sepsis protocol initiated. Covid and influenza screening ordered. Monitor patient. Patient was noted to have hypotensive event with blood pressure in the 80s. We have initiated 1 L of normal saline and I have added 2 more liters of LR for 3 L total. This will exceed 30 mL/kg based on ideal body weight for 59-year-old male with 175 cm height. BMI is greater than 30. Patient will need admission. 0515: Patient's blood pressure has improved to 100s systolic. Lactic acid slightly above 2. He is doing better with initiation of IV fluid and did receive albuterol inhaler 4 puffs via spacer and that is helped significantly as well. Continues on his typical home oxygen at 3 L and sats are 90 to 92%. I did discuss the case with Dr. Martínez and she accepts patient for admission, inpatient status to the ICU. We will initiate cefepime and vancomycin. 0545: I have discussed the case with the virtual ICU team. All findings and concerns were discussed with the patient who agrees with the plan. ECG Initial ECG Impression Date: Feb 13, 2020 Initial ECG Rhythm: Normal Sinus Comment Sinus rhythm with leftward axis. No evidence of ST elevation MT. Compared to previous of 03/18/2019 which had some features of atrial fibrillation. Interpreted by me. Diagnostic Imaging Diagonstic Imaging: Xray Plain Films/CT/US/NM/MRI: chest Comments Left lower lobe infiltrate Reviewed: Reviewed by Me Departure Communication (Admissions) Time/Spoke to Admitting Phy: 05:15 Impression Primary Impression: Pneumonia involving left lung Qualified Codes: J18.9 - Pneumonia, unspecified organism Additional Impression: Person under investigation for COVID-19 Disposition: ADMITTED INPATIENT Condition: Stable Admissions Decision to Admit Reason: Admit from ER (General) Decision to Admit/Date: Feb 13, 2020 Time/Decision to Admit Time: 05:15 Departure-Patient Inst. Referrals: TANI CRAFT DO (PCP) Primary Care Physician JOSEFINA CASSIDY MD Feb 13, 2020 06:06
--- NOTE | 2020-02-13 07:07 | NUR ---
Report given to Yana Ruiz RN
[2020-02-13] MEDS ORDERED: VANCOMYCIN 1000 MG/VIAL ONE (07:08)
[2020-02-13] MEDS ORDERED: NS (IVPB) 250 ML ONE (07:09)
[2020-02-13] MEDS: ENOXAPARIN 40 MG/0.4 ML (LOVENOX) SYR SC SCH (08:32)
--- NOTE | 2020-02-13 08:37 | History & Physical-Hospitalist ---
History of Present Illness HPI/Chief Complaint patient is a 59-year-old male who is a resident at [facility] who presented to the emergency department due to shortness of breath and fever. Reportedly this started last night. He has had similar symptoms with COPD and pneumonia in the past. He is unable to provide me much of this history due to p revious stroke which is [facility]. He did complain of nasal congestion and a sore throat along with his fever and shortness of breath. He denied any abdominal pain or discomfort. He was found to have a left lower lobe pneumonia on chest x-ray by the emergency room and was mildly hypotensive so was admitted to the ICU for continued management. Date Seen 02/13/20 Time Seen by a Provider: 08:37 Attending Physician Luis Casper MD PCP Mikie Gross DO Referring Physician Date of Admission Feb 13, 2020 at 07:00 Home Medications & Allergies Home Medications Reviewed patient Home Medication Reconciliation performed by pharmacy medication reconciliations certified composites technician and/or nursing. Patients Allergies have been reviewed. Allergies Allergies Coded Allergies codeine (Verified Allergy, Unknown, 06/25/18) Past Lxpnxlc-Onpxcg-Hlphvl Hx Past Med/Social Hx: Reviewed Nursing Past Med/Soc Hx Patient Social History Alcohol Use: Occasionally Uses Recreational Drug Use: No Smoking Status: Current Someday Smoker Type Used: Pipe Recent Foreign Travel: No Contact w/other who traveled: No Recent Hopitalizations: No Recent Infectious Disease Expo: No Immunizations Up To Date Date of Pneumonia Vaccine: Dec 25, 2016 Seasonal Allergies Seasonal Allergies: No Past Medical History Respiratory: Pneumonia Cardiac: Hypertension Reproductive: No Musculoskeletal: Arthritis Psychosocial: Anxiety, Bipolar, Schizophrenia, Depression History of Blood Disorders: No Family History Reviewed Nursing Family Hx TREMORS/NON-SPECIFIC MOVEMENT DISORDER/EXTRAPYRAMIDAL SYMPTOMS Review of Systems ROS-Unable to Obtain: limited per history of present illness Constitutional: fever EENTM: nose congestion, throat pain Respiratory: short of breath Gastrointestinal: No abdominal pain Psychiatric/Neurological: Paresthesia (chronic in legs) Physical Exam Physical Exam Vital Signs Vital Signs - First Documented 02/13/20 03:10 Temp 38.7 Pulse 86 Resp 24 B/P (MAP) 109/61 Pulse Ox 93 O2 Delivery Nasal Cannula O2 Flow Rate 3.00 FiO2 100 Capillary Refill : Less Than 3 Seconds Height, Weight, BMI Height: 5'9.00" Weight: 250lbs. 4.8oz. [id number]; 35.00 BMI Method:Stated General Appearance: No Apparent Distress, Chronically ill, Obese HEENT: PERRL/EOMI; No Scleral Icterus (L), No Scleral Icterus (R); Other ( wearing mask, did not examine mouth) Neck: Normal Inspection, Supple Respiratory: No Respiratory Distress; No Crackles (left), No Rhonci, No Wheezing; Other (on 3lpm NC) Cardiovascular: Regular Rate, Rhythm, No Murmur Gastrointestinal: Normal Bowel Sounds, Non Tender, Soft Extremity: Normal Capillary Refill, No Calf Tenderness, No Pedal Edema Neurologic/Psychiatric: Alert, Other (oriented to some details ) Results Results/Procedures Labs Laboratory Tests 02/13/20 03:10 Patient resulted labs reviewed. Assessment/Plan Admission Diagnosis Acute Hypoxic Respiratory Failure Admission Status: Inpatient Order (span 2 midnights) Reason for Inpatient Admission: see below Assessment and Plan Acute Hypoxic Respiratory Failure Severe Sepsis due to LLL PNA COVID PUI Continue on IV abx, Vanc and Cefepime Await cultures Rapid COVID negative, PCR pending trend lactic acid HTN Mildly low BP Monitor in ICU if does not decompensate with abx can consider transfer to the floor later today Previous CVA with residual weakness PT/OT Schizoprenia Appears to take Cloazril at baseline and multiple other mood stabilizers Will resume what I am able to when med rec done DVt ppx: SCDs, plts <100 Diagnosis/Problems Diagnosis/Problems (1) Acute respiratory failure (2) Severe sepsis (3) Hypertension (4) Person under investigation for COVID-19 Status: Acute (5) Pneumonia involving left lung Status: Acute Qualifiers: Pneumonia type: due to unspecified organism Lung location: lower lobe of lung Qualified Codes: J18.9 - Pneumonia, unspecified organism (6) Schizophrenia Status: Chronic LUIS CASPER MD Feb 13, 2020 08:37
[2020-02-13] MEDS ORDERED: ONDANSETRON 4 MG/2 ML (SDV) Z0FRAN IV PRN (09:00)
[2020-02-13] MEDS: LACTATED RINGERS 1,000 ML IV SCH ×2 (09:44→21:09)
[2020-02-13] MEDS: cloZAPine 25 MG (CLOZARIL) TAB PO SCH ×2 (09:44→21:08)
[2020-02-13] MEDS: DIVALPROEX 250 MG DELAYED RELEASE (DEPAKOTE) TAB PO SCH ×3 (09:45→21:08)
--- NOTE | 2020-02-13 10:30 | Diagnostic Imaging Report ---
INDICATION: Fever, cough and congestion. COMPARISON: 03/25/2019. FINDINGS: New left basilar heterogeneous consolidations. Possible small left pleural effusion. No pneumothorax. Heart is normal in size. Normal mediastinal contours. IMPRESSION: 1. Probable pneumonia within the left lower lobe with a small parapneumonic effusion. Advise followup PA and lateral chest radiographs in 4 weeks after appropriate medical management to ensure resolution. Dictated by: Dictated on workstation # [id number]
[2020-02-13] MEDS: CEFEPIME 1,000 MG/SWFI 10 ML IV PUSH IV SCH ×4 (11:30→18:33)
[2020-02-13 12:11] VITALS: BP 109/61
[2020-02-13] MEDS ORDERED: RT-ALBUTEROL INHALER HFA (VENTOLIN HFA) 18 GM IH PRN (12:30)
[2020-02-13] MEDS: VANCOMYCIN 1 GM/NS 250 ML IVPB IV SCH ×4 (13:55→21:07)
[2020-02-13] MEDS: RT-ALBUTEROL INHALER HFA (VENTOLIN HFA) 18 GM IH SCH ×3 (17:46→22:00)
[2020-02-13] MEDS ORDERED: WATER (STERILE) FOR INJECTION 10 ML ONE (18:25)
[2020-02-13] MEDS ORDERED: CEFEPIME 1 GM/10 ML (MAXIPIME) VIAL ONE (18:25)
[2020-02-14] MEDS ORDERED: WATER (STERILE) FOR INJECTION 10 ML ONE ×2 (01:08→05:51)
[2020-02-14] MEDS ORDERED: CEFEPIME 1 GM/10 ML (MAXIPIME) VIAL ONE ×2 (01:08→05:51)
[2020-02-14] MEDS: CEFEPIME 1,000 MG/SWFI 10 ML IV PUSH IV SCH ×10 (01:14→23:50)
[2020-02-14] MEDS: VANCOMYCIN 1 GM/NS 250 ML IVPB IV SCH ×6 (05:56→22:25)
[2020-02-14] MEDS: RT-ALBUTEROL INHALER HFA (VENTOLIN HFA) 18 GM IH SCH ×5 (07:38→21:15)
[2020-02-14] MEDS: LACTATED RINGERS 1,000 ML IV SCH ×3 (07:58→23:50)
[2020-02-14 08:23] LABS: BASOPHILS % (AUTO) 0 % (0-10); HEMOGLOBIN 13.4 g/dL (13.3-17.7); MEAN CORPUSCULAR VOLUME 100 fL (80-99)
[2020-02-14 08:25] LABS: EOSINOPHILS # (AUTO) 0.1 10^3/uL (0.0-0.3); EOSINOPHILS % (AUTO) 1 % (0-10); HEMATOCRIT 42 % (40-54); LYMPHOCYTES # (AUTO) 1.8 10^3/uL (1.0-4.0); LYMPHOCYTES % (AUTO) 21 % (12-44); MEAN CORPUSCULAR HEMOGLOBIN 32 pg (25-34); MEAN CORPUSCULAR HGB CONC 32 g/dL (32-36); MEAN PLATELET VOLUME 10.7 fL (9.0-12.2); MONOCYTES # (AUTO) 0.6 10^3/uL (0.0-1.0); MONOCYTES % (AUTO) 7 % (0-12); NEUTROPHILS # (AUTO) 6.4 10^3/uL (1.8-7.8); NEUTROPHILS % (AUTO) 71 % (42-75); PLATELET COUNT 81 10^3/uL (130-400); WHITE BLOOD COUNT 8.9 10^3/uL (4.3-11.0)
[2020-02-14 08:36] LABS: ALBUMIN 3.3 GM/DL (3.2-4.5); CHLORIDE 106 MMOL/L (98-107); POTASSIUM 4.2 MMOL/L (3.6-5.0); SODIUM 140 MMOL/L (135-145)
[2020-02-14 08:37] LABS: CALCIUM 7.9 MG/DL (8.5-10.1)
[2020-02-14 08:38] LABS: GLUCOSE 127 MG/DL (70-105)
[2020-02-14 08:39] LABS: TOTAL PROTEIN 6.5 GM/DL (6.4-8.2)
[2020-02-14 08:40] LABS: BILIRUBIN,TOTAL 0.8 MG/DL (0.1-1.0); CARBON DIOXIDE 25 MMOL/L (21-32)
[2020-02-14 08:42] LABS: ALKALINE PHOSPHATASE 65 U/L (40-136); CREATININE SERUM 0.83 MG/DL (0.60-1.30); GFR ESTIMATED > 60
[2020-02-14 08:43] LABS: BUN/CREATININE RATIO 13
[2020-02-14 08:45] LABS: ALANINE AMINOTRANSFERASE 106 U/L (0-55)
--- NOTE | 2020-02-14 09:12 | NUR ---
DR. BRICENO NOTIFIED OF DECREASED PLT COUNT. OK FOR LOVENOX.
[2020-02-14] MEDS: DIVALPROEX 250 MG DELAYED RELEASE (DEPAKOTE) TAB PO SCH ×3 (10:03→20:38)
[2020-02-14] MEDS: ENOXAPARIN 40 MG/0.4 ML (LOVENOX) SYR SC SCH (10:03)
[2020-02-14] MEDS: cloZAPine 25 MG (CLOZARIL) TAB PO SCH ×2 (10:03→20:37)
[2020-02-14] MEDS ORDERED: FURO40TA4 PO (10:54)
[2020-02-14] MEDS ORDERED: DOCU100C37 PO (10:54)
[2020-02-14] MEDS ORDERED: MOM10U PO (10:54)
[2020-02-14] MEDS ORDERED: MULT-1136 PO (10:54)
[2020-02-14] MEDS ORDERED: SCOP1PAT11 TD (10:54)
[2020-02-14] MEDS ORDERED: GABA300C PO (10:54)
--- NOTE | 2020-02-14 10:56 | NUR ---
[facility]
--- NOTE | 2020-02-14 13:09 | Progress Note - Hospitalist ---
Subjective HPI/CC On Admission Date Seen by Provider: Feb 14, 2020 Time Seen by Provider: 09:45 patient is a 59-year-old male who is a resident at [facility] who presented to the emergency department due to shortness of breath and fever. Reportedly this started last night. He has had similar symptoms with COPD and pneumonia in the past. He is unable to provide me much of this history due to previous stroke which is why he resides in a [facility]. He did complain of nasal congestion and a sore throat along with his fever and shortness of breath. He denied any abdominal pain or discomfort. He was found to have a left lower lobe pneumonia on chest x-ray by the emergency room and was mildly hypotensive so was admitted to the ICU for continued management. Subjective/Events-last exam He reports feeling short of breath. He reports phlegm and cough. He reports fever. Focused Exam Lactate Level 02/13/20 03:10: Lactic Acid Level 2.34*H 02/13/20 05:30: Lactic Acid Level 1.73 Objective Exam Vital Signs Vital Signs Date Time Temp Pulse Resp B/P (MAP) Pulse Ox O2 Delivery O2 Flow Rate FiO2 02/14/20 10:46 93 Nasal Cannula 2.00 02/14/20 08:00 37.0 82 20 134/69 02/13/20 12:11 32 Capillary Refill : Less Than 3 SecondsLess Than 3 Seconds General Appearance: No Apparent Distress, WD/WN Respiratory: No Respiratory Distress, Crackles, Rhonci Cardiovascular: Regular Rate, Rhythm, No Edema, No Murmur Extremity: Normal Inspection, Non Tender, No Pedal Edema Neurologic/Psychiatric: Alert, Oriented x3, No Motor/Sensory Deficits, Normal Mood/Affect Skin: Normal Color, Warm/Dry Results/Procedures Lab Laboratory Tests 02/14/20 08:05 Patient resulted labs reviewed. Imaging: Reviewed Imaging Report Assessment/Plan Assessment and Plan Assess & Plan/Chief Complaint Severe sepsis due to pneumonia Acute respiratory failure with hypoxia Lactic acidosis COVID negative Await cultures Vancomycin and Cefepime Supplemental oxygen as needed MAT protocol HTN Mildly low BP on arrival, normotensive today Monitor Previous CVA with residual weakness PT/OT Schizoprenia Continue home meds DVt ppx: Lovenox Diagnosis/Problems Diagnosis/Problems (1) Severe sepsis Status: Acute (2) Pneumonia involving left lung Status: Acute Qualifiers: Pneumonia type: due to unspecified organism Lung location: lower lobe of lung Qualified Codes: J18.9 - Pneumonia, unspecified organism (3) Acute respiratory failure Status: Acute Qualifiers: Respiratory failure complication: hypoxia Qualified Codes: J96.01 - Acute respiratory failure with hypoxia (4) Lactic acidosis Status: Resolved Resolution Date/Time: 02/14/20 @ 13:12 (5) Hypertension Status: Chronic (6) Schizophrenia Status: Chronic Clinical Quality Measures DVT/VTE Risk/Contraindication: Risk Factor Score Per Nursin RFS Level Per Nursing on Admit: 4+=Very High JALEN BRICENO MD Feb 14, 2020 13:09
[2020-02-14] MEDS: ACETAMINOPHEN 500 MG TAB (TYLENOL) PO PRN ×2 (14:30→20:38)
--- NOTE | 2020-02-14 14:31 | NUR ---
TYLENOL PO FOR C/O HEADACHE.
--- NOTE | 2020-02-14 15:06 | NUR ---
"RD ASSESSMENT PMHx: pneumonia; HTN; schizophrenia; PT INTERACTION: Note pt has schizophrenia, per chart review. Note all diet information for nutrition assessment is per Jeimy RN, or per chart review. Jeimy states current appetite appears average. Note avg pO intake 75% x2meal, per chart review. Kalieduferny states no issues with n/v/c/d that she is aware of, and that his last BM was /6. Note pt not currently on bowel regimen per chart review. Note 55# wt gain x11mon, per chart review. ABNORMAL NUTRITION-RELATED LAB VALUES LOW: Ca 7.9; HIGH: glu 127; AST 77; ALT 106 Est. kcal needs: 1111-4396 kcal | 15-18 kcal/kg Est. Pro needs: 101-127 g Pro | 0.8-1.0 g Pro/kg PES STATEMENT: Given current PO intake, no nutrition diagnosis at this time (NO-1.1). INTERVENTION: Continue with current diet order of Regular diet. Will continue to follow and reassess as pt needs, intake, and status change. Kimberly Veronica MS RD LD [phone] cell"
[2020-02-14] MEDS: PROPRANOLOL 20 MG (INDERAL) TABLET PO SCH (20:37)
[2020-02-14] MEDS: GABAPENTIN 300 MG (NEURONTIN) CAP PO SCH (20:38)
[2020-02-14] MEDS: SENNOSIDES 8.6 MG (SENOKOT) TAB PO SCH (20:38)
[2020-02-14] MEDS: DOCUSATE SODIUM 100 MG (COLACE) CAP PO SCH (20:38)
[2020-02-14] MEDS: LACTULOSE SYRUP 10GM/15ML (ENULOSE) 30ML UDC PO SCH (20:38)
[2020-02-14] MEDS: busPIRone 15 MG (BUSPAR) TABLET PO SCH (20:38)
[2020-02-14] MEDS: AMANTADINE 100 MG (SYMMETREL) CAP PO SCH (20:41)
[2020-02-14] MEDS ORDERED: DIVALPROEX 250 MG DELAYED RELEASE (DEPAKOTE) TAB PO SCH (21:00)
[2020-02-14] MEDS ORDERED: NON-FORMULARY MEDICATION 1 EA EA (Clozapine 50 MG) PO SCH (21:00)
[2020-02-14] MEDS: guaiFENesin/DM (ROBITUSSIN DM) 10 ML UDC PO PRN (22:25)
[2020-02-15] MEDS: RT-ALBUTEROL INHALER HFA (VENTOLIN HFA) 18 GM IH SCH ×6 (01:45→21:19)
[2020-02-15] MEDS: ACETAMINOPHEN 500 MG TAB (TYLENOL) PO PRN ×3 (03:47→18:53)
[2020-02-15 05:18] LABS: CHLORIDE 105 MMOL/L (98-107); POTASSIUM 3.8 MMOL/L (3.6-5.0); SODIUM 143 MMOL/L (135-145)
[2020-02-15 05:20] LABS: GLUCOSE 115 MG/DL (70-105)
[2020-02-15 05:21] LABS: CARBON DIOXIDE 26 MMOL/L (21-32)
[2020-02-15 05:22] LABS: BILIRUBIN,TOTAL 0.5 MG/DL (0.1-1.0)
[2020-02-15 05:23] LABS: ALKALINE PHOSPHATASE 66 U/L (40-136)
[2020-02-15 05:24] LABS: CREATININE SERUM 0.81 MG/DL (0.60-1.30); GFR ESTIMATED > 60
[2020-02-15 05:25] LABS: BUN/CREATININE RATIO 15
[2020-02-15 05:26] LABS: ALANINE AMINOTRANSFERASE 107 U/L (0-55)
[2020-02-15] MEDS: CEFEPIME 1,000 MG/SWFI 10 ML IV PUSH IV SCH ×6 (05:35→18:43)
[2020-02-15] MEDS: THIAMINE 100 MG (VITAMIN B-1) TAB PO SCH (05:35)
[2020-02-15] MEDS: VANCOMYCIN 1 GM/NS 250 ML IVPB IV SCH ×2 (05:35)
[2020-02-15] MEDS: DIVALPROEX 250 MG DELAYED RELEASE (DEPAKOTE) TAB PO SCH ×3 (09:15→20:19)
[2020-02-15] MEDS: LORATADINE (CLARITIN) 10 MG TAB PO SCH (09:15)
[2020-02-15] MEDS: busPIRone 15 MG (BUSPAR) TABLET PO SCH ×2 (09:15→20:19)
[2020-02-15] MEDS: DOCUSATE SODIUM 100 MG (COLACE) CAP PO SCH ×2 (09:15→20:19)
[2020-02-15] MEDS: cloZAPine 25 MG (CLOZARIL) TAB PO SCH ×2 (09:15→20:19)
[2020-02-15] MEDS: PROPRANOLOL 20 MG (INDERAL) TABLET PO SCH ×3 (09:15→20:19)
[2020-02-15] MEDS: LACTATED RINGERS 1,000 ML IV SCH ×2 (09:16→20:18)
[2020-02-15] MEDS: ENOXAPARIN 40 MG/0.4 ML (LOVENOX) SYR SC SCH (09:16)
[2020-02-15] MEDS: guaiFENesin/DM (ROBITUSSIN DM) 10 ML UDC PO PRN (09:16)
[2020-02-15] MEDS: LACTULOSE SYRUP 10GM/15ML (ENULOSE) 30ML UDC PO SCH ×2 (09:16→20:19)
[2020-02-15] MEDS: AMANTADINE 100 MG (SYMMETREL) CAP PO SCH ×2 (11:14→20:20)
--- NOTE | 2020-02-15 13:44 | Occupational Therapy Eval ---
OT Evaluation-General/PLF Medical Diagnosis Admission Date Feb 13, 2020 at 07:00 Medical Diagnosis: Sepsis/ PNA Onset Date: Feb 13, 2020 Therapy Diagnosis Therapy Diagnosis: Decreased ADL status Height/Weight Height (Feet): 5 Height (Inches): 9.00 Weight (Pounds): 250 Weight (Ounces): 4.8 Precautions Precautions/Isolations: Fall Prevention, Standard Precautions, Pressure Ulcer Referral Physician: Latonya Referral Reason: Activity Tolerance, Self Care, Evaluation/Treatment, Strengthening/ROM Medical History Additional Medical History CVA, COPD, current smoker, arthritis, schizophrenia, Current History Pt admits from SNF to ED via EMS with SOB/ fever. Pt COVID negative. Reviewed History: Yes Social History Home: [place] ([facility] [place]) Pt utilized w/c and walker throughout day at [facility]. ADL-Prior Level of Function SCALE: Activities may be completed with or without assistive devices. 3-Mauaypcuce-xvafrxn completes the activity by him/herself with no assistance from a helper. 5-Set-up or Clean-up Assistance-helper sets up or cleans up; patient completes activity. [place] assists only prior to or following the activity. 4-Supervision or Touching Assistance-helper provides verbal cues and/or touching/steadying and/or contact guard assistance as patient completes activity. Assistance may be provided throughout the activity or intermittently. 3-Partial/Moderate Assistance-helper does LESS THAN HALF the effort. [place] lifts, holds or supports trunk or limbs, but provides less than half the effort. 2-Substantial/Maximal Assistance-helper does MORE THAN HALF the effort. [place] lifts or holds trunk or limbs and provides more than half the effort. 2-Jdlmvfuvx-vbzyge does ALL the effort. Patient does none of the effort to complete the activity. Or, the assistance of 2 or more helpers is required for the patient to complete the activity. If activity was not attempted, code reason: 7-Patient Refused. 9-Not Applicable-not attempted and the patient did not perform the activity before the current illness, exacerbation or injury. 10-Not Attempted due to Environmental Limitations-(lack of equipment, weather restraints, etc.). 88-Not Attempted due to Medical Conditions or Safety Concerns. ADL PLOF Comments Pt states max A for showering, max A bottom hygiene, min A for transfer assist from w/c to toilet, and pt states he is able to complete dressing tasks with increased time. Self Care: Needed Some Help Functional Cognition: Independent Occupation: disabled. Drive Self: No OT Current Status Subjective Pt alert in bed, food in front of pt with pt eating. Pt AxOx2 (person/ place). Pt agrees to tx. Pt denies pain currently. Mental Status/Objective Patient Orientation: Person, Place Attachments: Oxygen (1.5) Current Glasses/Contacts: No Hearing Aids: No Dentures/Partials: No Hand Dominance: Right Upper Extremity ROM Decreased bilaterally (strength decrease) R shoulder flexion to ~75*, able to bring hand to mouth (fair elbow flexion) L shoulder flexion to ~50* Upper Extremity Coordination Decreased bilaterally - noted tremors with/ without intent Upper Extremity Sensation DNT Upper Extremity Strength Decreased bilaterally: 3-/5 shoulder flexion; bunghole borer strength poor bilaterally. ADL-Treatment Eating (QC): 6 (Pt states MILL FEEDER assisted with cutting food, though is able to cut on own. Pt is eating with tremors noted. ) Lower Body Dressing (QC): 1 On/Off Footwear (QC): 1 Toileting Hygiene (QC): 1 Other Treatments Pt educated on OT role/ purpose. Pt continues eating/ talking. Tremors during rest and with feeding. Pt lives at [facility], h/o L side affected CVA. Pt provides hx and ADL abilities. Pt completes MMT/ ROM with decreased ability due to strength. Pt requests brief change. TD (Ax2) for cleansing due to max A roll, TD cleansing elham/ bottom. Pt returns to sit, is educated on benefits of upright positioning. Pt is educated on PT to see pt later in day. Pt agrees, all needs met, call light in reach. Education OT Patient Education: Correct positioning, Modified ADL techniques, Purpose of tx/functional activities, Safety issues Teaching Recipient: Patient Teaching Methods: Demonstration, Discussion Response to Teaching: Verbalize Understanding, Return Demonstration OT Material Handling Supervisor Goals Material Handling Supervisor Goals Time Frame: Feb 22, 2020 Eating (QC): 6 Oral Hygiene (QC): 6 Toileting Hygiene (QC): 2 Shower/Bathe Self (QC): 2 Upper Body Dressing (QC): 5 Lower Body Dressing (QC): 3 On/Off Footwear (QC): 2 Additional Goals: 1-Demonstrate ADL Tasks, 2-Verbalize Understanding, 3- ImproveStrength/Carmita 1=Demonstrate adherence to instructed precautions during ADL tasks. 2=Patient will verbalize/demonstrate understanding of assistive devices/modifications for ADL. 3=Patient will improve strength/tolerance for activity to enable patient to perform ADL's. OT Education/Plan Problem List/Assessment Assessment: Decreased Activ Tolerance, Decreased UE Strength, Dependent Tra nsfers, Impaired Bed Mobility, Impaired Coordination, Impaired Funct Balance, Impaired I ADL's, Impaired Self-Care Skills Discharge Recommendations Plan/Recommendations: Continue POC Therapy Discharge Recommendati: 24 Hour Supervision, Post Acute OT Treatment Plan/Plan of Care Patient would benefit from OT for education, treatment and training to promote independence in ADL's, mobility, safety and/or upper extremity function for A DL's. Plan of Care: ADL Retraining, Functional Mobility, UE Funct Exercise/Act, UE Neuromus Re-Ed/Coord Treatment Duration: Feb 22, 2020 Frequency: 5 times per week Estimated Hrs Per Day: .25 hour per day Rehab Potential: Fair Time/GCodes Start Time: 12:50 Stop Time: 13:13 Total Time Billed (hr/min): 23 Billed Treatment Time 1, EVM (10), ADL (13)= 23 CLARISSA SEGAL OTR Feb 15, 2020 13:44
--- NOTE | 2020-02-15 13:56 | Progress Note - Hospitalist ---
Subjective HPI/CC On Admission Date Seen by Provider: Feb 15, 2020 Time Seen by Provider: 10:00 patient is a 59-year-old male who is a resident at [facility] who presented to the emergency department due to shortness of breath and fever. Reportedly this started last night. He has had similar symptoms with COPD and pneumonia in the past. He is unable to provide me much of this history due to previous stroke which is why he [facility] in a prison. He did complain of nasal congestion and a sore throat along with his fever and shortness of breath. He denied any abdominal pain or discomfort. He was found to have a left lower lobe pneumonia on chest x-ray by the emergency room and was mildly hypotensive so was admitted to the ICU for continued management. Subjective/Events-last exam He is feeling better. He feels like he is breathing better. He denies fevers. He has not been moving around much. Focused Exam Lactate Level 02/13/20 03:10: Lactic Acid Level 2.34*H 02/13/20 05:30: Lactic Acid Level 1.73 Objective Exam Vital Signs Vital Signs Date Time Temp Pulse Resp B/P (MAP) Pulse Ox O2 Delivery O2 Flow Rate FiO2 02/15/20 12:00 36.6 65 16 143/77 (99) 95 Nasal Cannula 2.00 02/13/20 12:11 32 Capillary Refill : Less Than 3 SecondsLess Than 3 Seconds General Appearance: No Apparent Distress, Obese Respiratory: Lungs Clear, Normal Breath Sounds, No Respiratory Distress Cardiovascular: Regular Rate, Rhythm, No Edema, No Murmur Gastrointestinal: Normal Bowel Sounds, Non Tender, Soft Extremity: Normal Inspection, Non Tender, No Pedal Edema Neurologic/Psychiatric: Alert, Other (flat affect, tremulous) Skin: Normal Color, Warm/Dry Results/Procedures Lab Laboratory Tests 02/15/20 04:15 Patient resulted labs reviewed. Imaging: Reviewed Imaging Report Assessment/Plan Assessment and Plan Assess & Plan/Chief Complaint Severe sepsis due to pneumonia Acute respiratory failure with hypoxia COVID negative Blood cultures with no growth to date Stop Vancomycin Continue Cefepime Supplemental oxygen as needed, weaning as tolerated MAT protocol HTN Mildly low BP on arrival, normotensive today Monitor Previous CVA with residual weakness PT/OT Schizoprenia Continue home meds DVt ppx: Lovenox Lactic acidosis, resolved Diagnosis/Problems Diagnosis/Problems (1) Severe sepsis Status: Acute (2) Pneumonia involving left lung Status: Acute Qualifiers: Pneumonia type: due to unspecified organism Lung location: lower lobe of lung Qualified Codes: J18.9 - Pneumonia, unspecified organism (3) Acute respiratory failure Status: Acute Qualifiers: Respiratory failure complication: hypoxia Qualified Codes: J96.01 - Acute respiratory failure with hypoxia (4) Lactic acidosis Status: Resolved Resolution Date/Time: 02/14/20 @ 13:12 (5) Hypertension Status: Chronic (6) Schizophrenia Status: Chronic Clinical Quality Measures DVT/VTE Risk/Contraindication: Risk Factor Score Per Nursin RFS Level Per Nursing on Admit: 4+=Very High JALEN BRICENO MD Feb 15, 2020 13:56
--- NOTE | 2020-02-15 14:41 | Physical Therapy Evaluation ---
PT Evaluation-General Medical Diagnosis Admission Date Feb 13, 2020 at 07:00 Medical Diagnosis: Sepsis/ PNA Onset Date: Feb 13, 2020 Therapy Diagnosis Therapy Diagnosis: generalized weakness/debility Height/Weight Height (Feet): 5 Height (Inches): 9.00 Weight (Pounds): 250 Weight (Ounces): 4.8 Precautions Precautions/Isolations: Fall Prevention, Standard Precautions, Pressure Ulcer Referral Physician: Latonya Reason for Referral: Evaluation/Treatment Medical History Pertinent Medical History: CVA, HTN, Smoking Additional Medical History schizophrenia/bipolar Current History EMS secondary to LUCAS and SOA Reviewed History: Yes Social History Home: Jail ([facility]) Prior Prior Level of Function SCALE: Activities may be completed with or without assistive devices. 4-Qkqqjbauqd-psfftmb completes the activity by him/herself with no assistance from a helper. 5-Set-up or Clean-up Assistance-helper sets up or cleans up; patient completes activity. [place] assists only prior to or following the activity. 4-Supervision or Touching Assistance-helper provides verbal cues and/or touching/steadying and/or contact guard assistance as patient completes activity. Assistance may be provided throughout the activity or intermittently. 3-Partial/Moderate Assistance-helper does LESS THAN HALF the effort. [place] lifts, holds or supports trunk or limbs, but provides less than half the effort. 2-Substantial/Maximal Assistance-helper does MORE THAN HALF the effort. [place] lifts or holds trunk or limbs and provides more than half the effort. 3-Qqcitkovh-eotzjq does ALL the effort. Patient does none of the effort to complete the activity. Or, the assistance of 2 or more helpers is required for the patient to complete the activity. If activity was not attempted, code reason: 7-Patient Refused. 9-Not Applicable-not attempted and the patient did not perform the activity before the current illness, exacerbation or injury. 10-Not Attempted due to Environmental Limitations-(lack of equipment, weather restraints, etc.). 88-Not Attempted due to Medical Conditions or Safety Concerns. Bed Mobility: 2 Transfers (B,C,W/C): 2 Gait: 3 Stairs: 9 Indoor Mobility (Ambulation): Needed Some Help Stairs: Not Applicalbe Prior Devices Use: Walker PT Evaluation-Current Subjective Patient agrees to PT. Pain Numeric Pain Scale: 0-No Pain Location: No Pain Reported Objective Patient Orientation: Person, Time, Situation Attachments: IV ROM/Strength ROM Lower Extremities bilateral LE WFL with noted rigidity Strength Lower Extremities 4-/5 grossly bilateral LE Integumentary/Posture Integumentary refer to nursing notes Posture WFL with noted lean to left in seated position Neuromuscular (Tone, Coordination, Reflexes) noted rigidity due to CVA Sensory Vision: Functional Hearing: Functional Hand Dominance: Right Transfers Lying to Sitting/Side of Bed(Q: 2 Sit to Stand (QC): 2 Chair/Exq-oc-Zlfrw Xfer(QC): 2 Gait Does the Patient Walk?: Yes Mode of Locomotion: Both Anticipated Mode of Locomotion: Both Walk 10 feet (QC): 3 Walk 50 ft with 2 Turns(QC): 3 Walk 150 ft (QC): 88 Distance: 50' Gait Assistive Device: FWW Comments/Gait Description noted tremors bilateral UE/functional gait sequence with FWW/slow, rigid Balance Sitting Static: Fair Sitting Dynamic: Fair Standing Static: Fair Standing Dynamic: Fair Treatment Facility called for PLOF Assessment/Needs 59 y.o. male, will benefit from skilled PT to address functional strength and mobility to improve current LOF to safely return to [place] at maximum LOF. Rehab Potential: Fair PT Detention Goals Detention Goals PT Detention Goals Time Frame: Feb 26, 2020 Roll Left & Right (QC): 3 Sit to Lying (QC): 3 Lying-Sitting on Side/Bed(QC): 3 Sit to Stand (QC): 3 Chair/Peu-vf-Iczxj Xfer(QC): 3 Toilet Transfer (QC): 3 Does the Patient Walk: Yes Walk 10 feet (QC): 3 Walk 50ft with 2 Turns (QC): 3 Walk 150 ft (QC): 3 PT Plan Problem List Problem List: Balance, Gait, Transfer, Bed Mobility, ROM Treatment/Plan Treatment Plan: Continue Plan of Care Treatment Plan: Bed Mobility, Education, Functional Activity Carmita, Functional Strength, Gait, Safety, Therapeutic Exercise, Transfers Treatment Duration: Feb 26, 2020 Frequency: 6 times per week Estimated Hrs Per Day: .25 hour per day Patient and/or Family Agrees t: Yes Time/GCodes Time In: 1345 Time Out: 1405 Total Billed Treatment Time: 20 Total Billed Treatment 1 visit EVMod 20 min MARJORIE JULES PT Feb 15, 2020 14:41
--- NOTE | 2020-02-15 15:50 | NUR ---
Pt has been a resident of [facility] for 3 years according to Zane. Pt may be discharged tomorrow back to [facility] and he is agreeable as misses being at the facility. According to Regina ALEGRE at the facility they will accept him back when discharged.
[2020-02-15] MEDS: GABAPENTIN 300 MG (NEURONTIN) CAP PO SCH (20:19)
[2020-02-15] MEDS: SENNOSIDES 8.6 MG (SENOKOT) TAB PO SCH (20:19)
[2020-02-16] MEDS: CEFEPIME 1,000 MG/SWFI 10 ML IV PUSH IV SCH ×4 (00:37→06:23)
[2020-02-16] MEDS: RT-ALBUTEROL INHALER HFA (VENTOLIN HFA) 18 GM IH SCH ×2 (02:25→07:57)
[2020-02-16] MEDS: LACTATED RINGERS 1,000 ML IV SCH (06:23)
[2020-02-16] MEDS: THIAMINE 100 MG (VITAMIN B-1) TAB PO SCH (06:23)
[2020-02-16] MEDS ORDERED: PATCH REMOVAL TP SCH (08:59)
--- NOTE | 2020-02-16 08:59 | NUR ---
HOME O2 DONE YESTERDAY. NOTES COPIED FROM RT BHAKTI patient did not require exercise to get drop in SpO2 of 88%. Patient requires 1 liter of oxygen to maintain SpO2 <88%
[2020-02-16] MEDS ORDERED: SCOPOLAMINE 1.5 MG (TRANSDERM-SCOP) PATCH TD SCH (09:00)
[2020-02-16] MEDS ORDERED: CEFDINIR 300 MG (OMNICEF) CAP PO SCH (09:00)
[2020-02-16] MEDS ORDERED: ENOXAPARIN 40 MG/0.4 ML (LOVENOX) SYR SC SCH (09:30)
[2020-02-16] MEDS: DOCUSATE SODIUM 100 MG (COLACE) CAP PO SCH (09:52)
[2020-02-16] MEDS: busPIRone 15 MG (BUSPAR) TABLET PO SCH (09:52)
[2020-02-16] MEDS: LORATADINE (CLARITIN) 10 MG TAB PO SCH (09:52)
[2020-02-16] MEDS: LACTULOSE SYRUP 10GM/15ML (ENULOSE) 30ML UDC PO SCH (09:52)
[2020-02-16] MEDS: cloZAPine 25 MG (CLOZARIL) TAB PO SCH (09:53)
[2020-02-16] MEDS: PROPRANOLOL 20 MG (INDERAL) TABLET PO SCH (09:53)
[2020-02-16] MEDS: DIVALPROEX 250 MG DELAYED RELEASE (DEPAKOTE) TAB PO SCH (09:53)
[2020-02-16] MEDS: ACETAMINOPHEN 500 MG TAB (TYLENOL) PO PRN (09:56)
[2020-02-16] MEDS ORDERED: CEFD300C3 PO (10:14)
--- NOTE | 2020-02-16 10:16 | Discharge Inst-Skilled Nursing ---
Discharge Inst-Skilled NF Reconcile Patient Problems Problems Reviewed?: Yes Chief Complaint patient is a 59-year-old male who is a resident at [facility] who presented to the emergency department due to shortness of breath and fever. Reportedly this started last night. He has had similar symptoms with COPD and pneumonia in the past. He is unable to provide me much of this history due to previous stroke which is why he resides in a fdc. He did complain of nasal congestion and a sore throat along with his fever and shortness of breath. He denied any abdominal pain or discomfort. He was found to have a left lower lobe pneumonia on chest x-ray by the emergency room and was mildly hypotensive so was admitted to the ICU for continued management. Consult/Follow Up/Orders Follow Up Appt.: next fdc rounds Skilled NF Admit to: [facility] Certification (SNF) I certify that SNF services are required to be given on an inpatient basis because of the above named patient's need for fdc care on a continuing basis for the conditions(s) for which he/she was receiving inpatient hospital services prior to his/her transfer to the SNF. Longterm Facility Order: Nursing Services, Jig Borer-Evaluate & Treat, Physical Therapy-Evaluate & Treat Oxygen Delivery Method: Nasal Cannula Oxygen Flow Rate L/min (Range): 1 Discharge Diet: No Restrictions Daily Activity as Tolerated: Yes Resuscitation Status: Full Code New & Resume Previous Orders Tatiana Briceno Feb 16, 2020 10:15 TATIANA BRICENO MD Feb 16, 2020 10:16
[2020-02-16 12:32] VITALS: BP 152/76
--- NOTE | 2020-02-17 08:25 | NUR ---
On Feb.15 Zane discharged back to [facility] for skilled care as he wants to continue participating in therapies.All medical records jarred to [facility] transport staff and discharge orders were faxed to [facility].
== END 2020-02-16 12:32 | DRG 871 ==
LOC: EDUNIT# 02:58 → ER 02:59 → ICU 07:00 → 4TH 17:18
PROVIDERS: ADMIT Family Medicine; ATTEND Internal Medicine
DX: A41.9 Sepsis, unspecified organism (principal); J18.9 Pneumonia, unspecified organism; J96.01 Acute respiratory failure with hypoxia; E87.2 Acidosis; G25.9 Extrapyramidal and movement disorder, unspecified; R65.20 Severe sepsis without septic shock; J44.9 Chronic obstructive pulmonary disease, unspecified; I10 Essential (primary) hypertension; Z20.828 Contact with and (suspected) exposure to other viral communicable diseases; F17.290 Nicotine dependence, other tobacco product, uncomplicated; I69.398 Other sequelae of cerebral infarction; R53.1 Weakness; R26.9 Unspecified abnormalities of gait and mobility; M19.91 Primary osteoarthritis, unspecified site; F41.9 Anxiety disorder, unspecified; F31.9 Bipolar disorder, unspecified; F20.9 Schizophrenia, unspecified
CPT/HCPCS: 36415; 71045; 80053; 83605; 84145; 84484; 85025; 85379; 85610; 85730; 86141; 87040; 87635; 87804; 94640; 94760; 94761

== ENCOUNTER → 2020-03-06 | Outpatient (CLI) | payer MEDICARE, MEDICAID ==
[~2020-03-06] MED LIST changes: +CATHETER FLUSH 10 ML SYR IV PRN; +CEFD300C3 PO; +DOCU100C37 PO; +FURO40TA4 PO; +GABA300C PO; +HOLD METFORMIN - RECEIVED CONTRAST 20 ML VIAL IV SCH; +IOHEXOL 350 MG/ML 100 ML (OMNIPAQUE 350) VIAL IV ONE; +MOM10U PO; +MULT-1136 PO; +NS 100 ML (IVPB) BAG IV ONE; +SCOP1PAT11 TD
--- NOTE | 2020-03-06 11:37 | Diagnostic Imaging Report ---
EXAMINATION: CT Abdomen with intravenous contrast. TECHNIQUE: Multiple contiguous axial images were obtained through the abdomen after the administration of intravenous contrast. All CT scans use one or more of the following dose optimizing techniques: automated exposure control, MA and/or KvP adjustment based on a patient size and exam type, or iterative reconstruction. HISTORY: Hepatitis C. COMPARISON: None available. FINDINGS: Lung bases: Consolidation or atelectasis within the visualized left lung base. Solid organs: Minimally nodular contour of the liver. No suspicious enhancing lesion. There is no biliary ductal dilation. Gallbladder is normal. Pancreas is normal. The spleen is enlarged measuring 15.5 cm. Adrenal glands are normal. The kidneys are normal without hydronephrosis. Bowel: No bowel obstruction. Peritoneum: There is no intraperitoneal free fluid or free air. There are a few prominent erick hepatis lymph nodes which are likely reactive. Vasculature: Calcification of the aorta without aneurysm. Musculoskeletal: Degenerative changes of the spine without suspicious osseous lesion or compression fracture. IMPRESSION: 1. Minimally nodular contour of the liver compatible with history of hepatitis C. No suspicious hepatic lesion. 2. Splenomegaly. 3. Left lung base atelectasis or pneumonia. Dictated by: Dictated on workstation # [id number]
== END ==
LOC: RAD 09:49
PROVIDERS: ATTEND Internal Medicine Hematology & Oncology
DX: K76.89 Other specified diseases of liver (principal); D69.6 Thrombocytopenia, unspecified; B19.20 Unspecified viral hepatitis C without hepatic coma; R16.1 Splenomegaly, not elsewhere classified
CPT/HCPCS: 74160

== ENCOUNTER 2020-03-13 15:00 | Outpatient (RCR) | payer MEDICARE, MEDICAID ==
[~2020-03-13 15:00] MED LIST changes: -CATHETER FLUSH 10 ML SYR IV PRN; -HOLD METFORMIN - RECEIVED CONTRAST 20 ML VIAL IV SCH; -IOHEXOL 350 MG/ML 100 ML (OMNIPAQUE 350) VIAL IV ONE; -NS 100 ML (IVPB) BAG IV ONE
== END 2020-06-11 | disposition home or self-care (01) ==
LOC: ONC 15:00
PROVIDERS: ATTEND Internal Medicine Hematology & Oncology
DX: D69.6 Thrombocytopenia, unspecified (principal); B19.20 Unspecified viral hepatitis C without hepatic coma; F99 Mental disorder, not otherwise specified; E11.9 Type 2 diabetes mellitus without complications; J44.9 Chronic obstructive pulmonary disease, unspecified; I10 Essential (primary) hypertension; F17.210 Nicotine dependence, cigarettes, uncomplicated; Z80.1 Family history of malignant neoplasm of trachea, bronchus and lung; Z80.8 Family history of malignant neoplasm of other organs or systems
CPT/HCPCS: 99213

== ENCOUNTER → 2020-10-04 | Outpatient (CLI) | payer MEDICARE, MEDICAID ==
[~2020-10-04] MED LIST changes: +CATHETER FLUSH 10 ML SYR IV PRN; +HOLD METFORMIN - RECEIVED CONTRAST 20 ML VIAL IV SCH; +IOHEXOL 350 MG/ML 100 ML (OMNIPAQUE 350) VIAL IV ONE; +NS 100 ML (IVPB) BAG IV ONE
[2020-10-04 12:51] LABS: CREATININE SERUM 1.08 MG/DL (0.60-1.30); POTASSIUM 3.8 MMOL/L (3.6-5.0)
--- NOTE | 2020-10-04 14:16 | Diagnostic Imaging Report ---
PROCEDURE: CT chest with contrast only. TECHNIQUE: Multiple contiguous axial images were obtained through the chest after administration of intravenous contrast. Auto Exposure Controls were utilized during the CT exam to meet ALARA standards for radiation dose reduction. INDICATION: Mass in the left axilla. No prior studies are available for comparison. BB markers placed at the area palpable abnormality left axilla. There is a large solid mass measuring 5.9 x 5.8 cm, likely pathologic lymph node. A smaller node just anterior slightly medial to this measures 2.4 cm. A lymph node in the retro-pectoral region on the left measures 2.2 x 1.9 cm. The right axilla is unremarkable. No mediastinal or hilar lymphadenopathy is identified. There is no pericardial or pleural fluid. There are small normal-sized lymph nodes in the pericardial fat. There is atelectasis or scarring the lingula and left lower lobe. There is a 6 mm noncalcified nodule left upper lobe medially, image 49. Subpleural nodule anteriorly left upper lobe measures 5 mm, image 62. No dominant parenchymal mass is identified. The upper abdomen demonstrates a mass arising from or immediately adjacent to the head of pancreas measuring 2.7 x 3.1 cm. No adrenal mass is identified. IMPRESSION: 1. Left axillary lymphadenopathy, dominant jaz mass accounting for the palpable abnormality in left axilla. There are indeterminate subcentimeter pulmonary nodules present in the left upper lobe. 2. Questional mass arising from or immediately adjacent to the head of the pancreas. Percutaneous biopsy left axillary lymphadenopathy could be performed if clinically needed. Dictated by: Dictated on workstation # [id number]
== END ==
LOC: RAD 12:45
PROVIDERS: ATTEND Family Medicine
DX: N63.32 Unspecified lump in axillary tail of the left breast (principal); R59.0 Localized enlarged lymph nodes; R91.8 Other nonspecific abnormal finding of lung field
CPT/HCPCS: 36415; 71260; 80048

== ENCOUNTER → 2020-10-06 | Outpatient (CLI) | payer MEDICARE, MEDICAID ==
[~2020-10-06] MED LIST changes: -CATHETER FLUSH 10 ML SYR IV PRN; -HOLD METFORMIN - RECEIVED CONTRAST 20 ML VIAL IV SCH; -IOHEXOL 350 MG/ML 100 ML (OMNIPAQUE 350) VIAL IV ONE; +LIDOCAINE 1% INJ 20 ML 20 ML VIAL INJ ONE; -NS 100 ML (IVPB) BAG IV ONE
--- NOTE | 2020-10-06 15:38 | Diagnostic Imaging Report ---
INDICATION: Left axillary lymphadenopathy. Patient presents for ultrasound-guided biopsy. PROCEDURE: Patient was brought to the procedure room and placed on table in supine position. Ultrasound imaging of the left axilla was performed to evaluate appropriate entry site. Left axilla was prepped and draped in the usual sterile fashion. A small amount of 1% lidocaine was utilized for local anesthesia. Total of 4 core biopsies were obtained of the largest left axillary jaz mass utilizing a 14-gauge achieve needle. Needle was withdrawn and hemostasis was obtained using manual compression. Patient tolerated the procedure well and left the department in stable condition. IMPRESSION: Successful ultrasound guided core biopsy of large jaz mass in left axilla. Pathology results are currently pending. Dictated by: Dictated on workstation # [id number]
== END ==
LOC: RAD 13:00
PROVIDERS: ATTEND Family Medicine
DX: N63.32 Unspecified lump in axillary tail of the left breast (principal)
CPT/HCPCS: 76942

== ENCOUNTER → 2020-10-17 | Outpatient (CLI) | payer MEDICARE, MEDICAID ==
[~2020-10-17] MED LIST changes: -LIDOCAINE 1% INJ 20 ML 20 ML VIAL INJ ONE
--- NOTE | 2020-10-17 16:37 | Diagnostic Imaging Report ---
INDICATION: Malignant melanoma in the left axilla, initial staging. TECHNIQUE: Serum blood glucose level at the time of injection is 160 mg/dL. Patient was administered 14.1 mCi F-18 FDG intravenously in the right hand and whole body PET imaging was performed. Noncontrast CT was also performed for attenuation correction and anatomic correlation. COMPARISON: No prior PET imaging is available for comparison. FINDINGS: There is symmetric activity throughout the brain. There is normal physiologic activity within the soft tissues of the neck. Multiple hypermetabolic masses in the left axilla are noted corresponding to patient's known left axillary lymphadenopathy. SUV max of left axillary lymph nodes is 21.8. No mediastinal or hilar hypermetabolism is identified. No definite pulmonary parenchymal hypermetabolism is identified. There is physiologic activity throughout the GI and tracts of the abdomen and pelvis. There is a hypermetabolic mass in the upper abdomen just cephalad to the pancreatic head measuring 3.7 cm. SUV max is 22 and appears most consistent with a portacaval lymph node. No other definite hypermetabolic lymph nodes are identified. The lower extremities are unremarkable. IMPRESSION: 1. Hypermetabolic left axillary lymphadenopathy. There is also a hypermetabolic lymph node in the erick hepatis. No other significant abnormality is detected. Dictated by: Dictated on workstation # [id number]
== END ==
LOC: RAD 12:59
PROVIDERS: ATTEND Internal Medicine Hematology & Oncology
DX: C43.9 Malignant melanoma of skin, unspecified (principal)
CPT/HCPCS: 78816; A9552

== ENCOUNTER → 2020-10-31 | Outpatient (CLI) | payer MEDICARE, MEDICAID ==
[~2020-10-31] MED LIST changes: +GADOBUTROL 10 MMOL/10 ML (GADAVIST) VIAL IV ONE
--- NOTE | 2020-10-31 12:11 | Diagnostic Imaging Report ---
PROCEDURE: MR imaging of the brain with and without contrast. TECHNIQUE: Multiplanar, multisequence MR imaging of the brain was performed with and without contrast. INDICATION: History of cancer. Malignant melanoma. Evaluate for intracranial metastatic disease. COMPARISON: None. FINDINGS: No acute ischemia, mass, or hemorrhage. No abnormal enhancement is seen. Focal areas of T2 hyperintense signal are seen in the periventricular and subcortical white matter. The ventricles and cortical sulci are mildly prominent. The basilar cisterns are symmetric and unremarkable. The sellar and suprasellar regions have a normal appearance. The major intracranial flow voids are intact. The brainstem and posterior fossa are unremarkable. The paranasal sinuses demonstrate normal signal characteristics. A small left mastoid effusion is present. The globes and orbits are symmetric and unremarkable. The scalp and calvarium have a normal appearance. IMPRESSION: 1. No acute ischemia, mass, or hemorrhage. No abnormal enhancement to suggest intracranial metastatic disease. 2. Mild parenchymal volume loss with chronic microvascular disease. Dictated by: Dictated on workstation # [id number]
== END ==
LOC: RAD 10-23 10:15
PROVIDERS: ATTEND Internal Medicine Hematology & Oncology
DX: C43.9 Malignant melanoma of skin, unspecified (principal); C77.9 Secondary and unspecified malignant neoplasm of lymph node, unspecified; G31.9 Degenerative disease of nervous system, unspecified
CPT/HCPCS: 70553

== ENCOUNTER 2020-11-15 12:02 | Outpatient (CLI) | payer MEDICARE, MEDICAID ==
[~2020-11-15] VITALS: Ht 175.3 cm; Wt 112.3 kg
[~2020-11-15 12:02] MED LIST changes: -GADOBUTROL 10 MMOL/10 ML (GADAVIST) VIAL IV ONE
[2020-11-15] MEDS ORDERED: PROM6.2516 PO (13:18)
[2020-11-15] MEDS ORDERED: SOFO1TAB PO (13:18)
== END 2020-11-15 13:34 | disposition home or self-care (01) ==
LOC: PREOP 12:02
PROVIDERS: ATTEND Surgery
DX: Z01.818 Encounter for other preprocedural examination (principal)

== ENCOUNTER 2020-11-16 08:21 | Day surgery (SDC) | payer MEDICARE, MEDICAID ==
[~2020-11-16 08:21] MED LIST changes: +PROM6.2516 PO; +SOFO1TAB PO
[2020-11-16] MEDS ORDERED: ceFAZolin 2 GM IV Premixed 50 ML IV ONE (08:30)
[2020-11-16 08:40] VITALS: BP 121/88
[2020-11-16] MEDS ORDERED: HEParin (CENTRAL IV FLUSH) 500 UNIT/5 ML SYR ONE (08:58)
[2020-11-16] MEDS ORDERED: 0.9% SODIUM CHLORIDE PF INJ 20 ML VIAL ONE (08:58)
[2020-11-16] MEDS ORDERED: LIDOCAINE/EPI 1%-1:100,000 (XYLOCAINE) 20ML ONE (08:58)
[2020-11-16] MEDS ORDERED: fentaNYL INJ 100 MCG/2 ML AMP ONE (09:10)
[2020-11-16] MEDS ORDERED: PROPOFOL INJECTION 50 ML IV ONE (09:10)
[2020-11-16] MEDS ORDERED: MIDAZOLAM 2 MG/2 ML (VERSED) VIAL ONE (09:10)
--- NOTE | 2020-11-16 09:20 | Progress Note-Pre Operative ---
Pre-Operative Progress Note H&P Reviewed The H&P was reviewed, patient examined and no changes noted. Date Seen by Provider: Nov 16, 2020 Time Seen by Provider: 09:20 Date H&P Reviewed: Nov 16, 2020 Time H&P Reviewed: 09:20 Pre-Operative Diagnosis: metastatic melanoma LIAM OGLESBY DO Nov 16, 2020 09:20
[2020-11-16] MEDS ORDERED: LACTATED RINGERS 1,000 ML IV PRN (09:45)
--- NOTE | 2020-11-16 10:06 | Progress Note-Post Operative ---
Post-Operative Progess Note Surgeon (s)/Sales Office Assistant (s) Surgeon LIAM OGLESBY DO Sales Office Assistant: na Pre-Operative Diagnosis metastatic melanoma Post-Operative Diagnosis same Procedure & Operative Findings Date of Procedure 11/16/20 Procedure Performed/Findings PROCEDURE: Right internal jugular port placement using ultrasound guidance. COMPLICATIONS: None. INDICATIONS: The patient is a 59 year old male with metastatic melanoma. Patient understands the risks and benefits of port placement and wished to proceed with the procedure. Consent was signed on the chart. PROCEDURE: The patient was taken to the operating suite, was prepped and draped in the sterile fashion. A surgical pause was performed. Ultrasound was used to locate the internal jugular vein. Once located anesthetic was infiltrated above it. Using micro-access kit, the right internal vein was accessed. Dark nonpulsatile blood was withdrawn. The wire was inserted. Fluoroscopy assured proper placement. The needle was removed. The micro-access dilator was advanced over the wire and the wire was removed. The regular wire was inserted and fluoroscopy assured proper placement. The wire was then secured. Local anesthetic was used to anesthetize from the neck for tunneling down to the right chest and for pocket creation. A 15 blade scalpel was used to make an incision over the right chest. Cautery was used to dissect down to the pectoral fascia. A pocket was created with blunt dissection. The dilator sheath was then advanced over the wire under fluoroscopy and the dilator and wire were removed. The Groshong catheter was inserted through the sheath and the sheath was then removed. The Groshong wire was removed. The catheter was then tunneled to the right chest pocket. Fluoroscopy was used to cut to length and this was then attached to the port which was then placed within the pocket. The port was then accessed without difficulty. It was then flushed with saline and then heparin. The subcutaneous tissues were then reapproximated using 3-0 Vicryl. The areas were then washed and dried. Skin Affix was placed over incision. The insertion point of the neck Skin Affix was placed over the incision. The patient tolerated the procedure well without complication and was taken to recovery room in stable condition. Chest x-ray is pending. Anesthesia Type mac c local Estimated Blood Loss Estimated blood loss (mL): minimal Specimens/Packing Specimens Removed LIAM Arenas DO Nov 16, 2020 10:06
--- NOTE | 2020-11-16 10:08 | Discharge Inst-Simple/Standard ---
Discharge Inst-Standard Patient Instructions/Follow Up Plan of Care/Instructions/FU: 2 weeks Julianna Activity as Tolerated: No Discharge Diet: Regular Diet Other Inst to Patient Follow up Appt: Make appointment for 2 week. Instructions: No lifting greater than 10 pounds. No strenuous activity. May shower in 24 hours, no tub bath or soaking. Use incentive spirometer at home as directed. No Smoking Skin/Wound Care: You have special glue over your incision that will fall off on it's own. Ice pack over incision for 15 min and off for 30 min and repeat for first 48 hours. This reduces swelling and discomfort. Symptoms to Report: Appetite Changes, Extremity Discoloration, Numbness/Tingling, Swelling Increased, Bleeding Excessive, Eyesight Changes, Pain Increased, Urine Color Change, Constipation(Persistent), Fever over 101 degree F, Pain/Pressure in chest, Urinating Difficulty, Cough Up/Vomit Blood, Heart Beat Irreg/Pounding, Pain/Pressure in jaw, Vaginal Bleeding Increase, Cramps in feet or legs, Lightheadedness, Pain/Pressure in shoulder, Diarrhea(Persistent), Memory Changes Suddenly, Questions/Concerns, Weight gain consecutive days, Dizziness/Fainting, Nausea/Vomiting, Shortness of Breath, Weight gain over 2 pounds If questions or concerns contact your physician Or seek help at emergency department. LIAM OGLESBY DO Nov 16, 2020 10:08
[2020-11-16 10:09] VITALS: BP 111/74
[2020-11-16] MEDS ORDERED: ONDANSETRON 4 MG/2 ML (SDV) Z0FRAN IVP PRN (10:15)
[2020-11-16 10:20] VITALS: BP 106/66
[2020-11-16 10:30] VITALS: BP 131/82
--- NOTE | 2020-11-16 10:35 | Diagnostic Imaging Report ---
INDICATION: Central line placement IMPRESSION: 25.7 seconds of fluoroscopy were used in surgery by Dr. Levine and a single AP digital image of the right upper chest was obtained. Image shows the right IJ Port-A-Cath tip projects over the SVC. Dictated by: Dictated on workstation # [id number]
[2020-11-16 10:40] VITALS: BP_SYST 122; BP_SYST 126; BP_DIAS 75; BP_DIAS 81
[2020-11-16] MEDS ORDERED: ACETAMINOPHEN 500 MG TAB (TYLENOL) ONE (10:54)
[2020-11-16] MEDS ORDERED: ACETAMINOPHEN 500 MG TAB (TYLENOL) PO ONE (11:00)
[2020-11-16 11:10] VITALS: BP 114/68
--- NOTE | 2020-11-16 11:11 | Diagnostic Imaging Report ---
INDICATION: Central line placement. EXAMINATION: Portable chest at 10:36 a.m. FINDINGS: Right IJ central line tip projects over the SVC. Heart size and pulmonary vascularity are normal. There may be some left basilar infiltrate or atelectasis. IMPRESSION: Left hemidiaphragm is partially obscured suggesting some infiltrate or atelectasis. Dictated by: Dictated on workstation # [id number]
--- NOTE | 2020-11-16 13:21 | Anesthesia-General Post-Op ---
MAC Patient Condition Mental Status/LOC: Same as Preop Cardiovascular: Satisfactory Nausea/Vomiting: Absent Respiratory: Satisfactory Pain: Controlled Complications: Absent Post Op Complications Complications None Follow Up Care/Instructions Patient Instructions None needed. Anesthesiology Discharge Order Discharge Order Patient is doing well, no complaints, stable vital signs, no apparent adverse anesthesia problems. No complications reported per nursing. MAC NAVARRO CRNA Nov 16, 2020 13:21
== END 2020-11-16 11:45 | disposition home or self-care (01) ==
LOC: SDC 08:21
PROVIDERS: ATTEND Surgery
DX: C79.9 Secondary malignant neoplasm of unspecified site (principal); I11.0 Hypertensive heart disease with heart failure; I50.9 Heart failure, unspecified; J44.9 Chronic obstructive pulmonary disease, unspecified; F32.9 Major depressive disorder, single episode, unspecified; F41.9 Anxiety disorder, unspecified; F17.210 Nicotine dependence, cigarettes, uncomplicated; E11.9 Type 2 diabetes mellitus without complications; R56.9 Unspecified convulsions; I69.354 Hemiplegia and hemiparesis following cerebral infarction affecting left non-dominant side; I69.351 Hemiplegia and hemiparesis following cerebral infarction affecting right dominant side; Z79.891 Long term (current) use of opiate analgesic; Z79.899 Other long term (current) drug therapy
CPT/HCPCS: 36561; 71045; 76000; 87081; C1788

== ENCOUNTER 2021-01-04 10:15 | Outpatient (RCR) | payer MEDICARE, MEDICAID ==
[2020-10-18 10:34] LABS: BASOPHILS # (AUTO) 0.1 10^3/uL (0.0-0.1); BASOPHILS % (AUTO) 1 % (0-10); EOSINOPHILS # (AUTO) 0.1 10^3/uL (0.0-0.3); EOSINOPHILS % (AUTO) 1 % (0-10); HEMATOCRIT 44 % (40-54); HEMOGLOBIN 14.7 g/dL (13.3-17.7); LYMPHOCYTES # (AUTO) 4.5 10^3/uL (1.0-4.0); LYMPHOCYTES % (AUTO) 47 % (12-44); MEAN CORPUSCULAR HEMOGLOBIN 32 pg (25-34); MEAN CORPUSCULAR HGB CONC 33 g/dL (32-36); MEAN CORPUSCULAR VOLUME 95 fL (80-99); MEAN PLATELET VOLUME 9.7 fL (9.0-12.2); MONOCYTES # (AUTO) 0.8 10^3/uL (0.0-1.0); MONOCYTES % (AUTO) 8 % (0-12); NEUTROPHILS # (AUTO) 4.2 10^3/uL (1.8-7.8); NEUTROPHILS % (AUTO) 44 % (42-75); PLATELET COUNT 194 10^3/uL (130-400); WHITE BLOOD COUNT 9.6 10^3/uL (4.3-11.0)
[2020-10-18 10:55] LABS: ALBUMIN 3.5 GM/DL (3.2-4.5); BILIRUBIN,TOTAL 0.5 MG/DL (0.1-1.0); CALCIUM 9.2 MG/DL (8.5-10.1); CREATININE SERUM 1.1 MG/DL (0.60-1.30); POTASSIUM 3.7 MMOL/L (3.6-5.0); TOTAL PROTEIN 8.2 GM/DL (6.4-8.2)
[2020-12-13 10:30] LABS: BASOPHILS # (AUTO) 0.1 10^3/uL (0.0-0.1); BASOPHILS % (AUTO) 1 % (0-10); EOSINOPHILS # (AUTO) 0.1 10^3/uL (0.0-0.3); EOSINOPHILS % (AUTO) 1 % (0-10); HEMATOCRIT 44 % (40-54); HEMOGLOBIN 14.4 g/dL (13.3-17.7); LYMPHOCYTES # (AUTO) 4.6 10^3/uL (1.0-4.0); LYMPHOCYTES % (AUTO) 46 % (12-44); MEAN CORPUSCULAR HEMOGLOBIN 31 pg (25-34); MEAN CORPUSCULAR HGB CONC 33 g/dL (32-36); MEAN CORPUSCULAR VOLUME 95 fL (80-99); MEAN PLATELET VOLUME 9.7 fL (9.0-12.2); MONOCYTES # (AUTO) 0.8 10^3/uL (0.0-1.0); MONOCYTES % (AUTO) 8 % (0-12); NEUTROPHILS # (AUTO) 4.4 10^3/uL (1.8-7.8); NEUTROPHILS % (AUTO) 44 % (42-75); PLATELET COUNT 161 10^3/uL (130-400); WHITE BLOOD COUNT 9.9 10^3/uL (4.3-11.0)
[2020-12-13 10:55] LABS: ALBUMIN 3.7 GM/DL (3.2-4.5); BILIRUBIN,TOTAL 0.6 MG/DL (0.1-1.0); CALCIUM 9.3 MG/DL (8.5-10.1); CREATININE SERUM 1.09 MG/DL (0.60-1.30); POTASSIUM 3.4 MMOL/L (3.6-5.0); TOTAL PROTEIN 7.7 GM/DL (6.4-8.2)
[~2021-01-04 10:15] MED LIST changes: +IPILIMUMAB IV SCH; +NIVOLUMAB IV SCH; +NS IV 1000 ML (CANCER CTR) IV SCH; +NS IV SCH; +SCOP1PAT10 TD; -SCOP1PAT11 TD
[2021-01-04 11:14] LABS: BASOPHILS # (AUTO) 0.1 10^3/uL (0.0-0.1); BASOPHILS % (AUTO) 1 % (0-10); EOSINOPHILS # (AUTO) 0.1 10^3/uL (0.0-0.3); EOSINOPHILS % (AUTO) 1 % (0-10); HEMATOCRIT 45 % (40-54); HEMOGLOBIN 14.6 g/dL (13.3-17.7); LYMPHOCYTES # (AUTO) 4.2 10^3/uL (1.0-4.0); LYMPHOCYTES % (AUTO) 40 % (12-44); MEAN CORPUSCULAR HEMOGLOBIN 31 pg (25-34); MEAN CORPUSCULAR HGB CONC 33 g/dL (32-36); MEAN CORPUSCULAR VOLUME 95 fL (80-99); MEAN PLATELET VOLUME 9.6 fL (9.0-12.2); MONOCYTES # (AUTO) 0.8 10^3/uL (0.0-1.0); MONOCYTES % (AUTO) 7 % (0-12); NEUTROPHILS # (AUTO) 5.2 10^3/uL (1.8-7.8); NEUTROPHILS % (AUTO) 50 % (42-75); PLATELET COUNT 175 10^3/uL (130-400); WHITE BLOOD COUNT 10.4 10^3/uL (4.3-11.0)
[2021-01-04 11:52] LABS: ALBUMIN 3.9 GM/DL (3.2-4.5); BILIRUBIN,TOTAL 0.5 MG/DL (0.1-1.0); CALCIUM 9.4 MG/DL (8.5-10.1); CREATININE SERUM 1.03 MG/DL (0.60-1.30); POTASSIUM 3.6 MMOL/L (3.6-5.0)
== END 2021-01-16 | disposition home or self-care (01) ==
LOC: ONC 10:15
PROVIDERS: ATTEND Internal Medicine Hematology & Oncology
DX: Z51.11 Encounter for antineoplastic chemotherapy (principal); D69.6 Thrombocytopenia, unspecified; B19.20 Unspecified viral hepatitis C without hepatic coma; J44.9 Chronic obstructive pulmonary disease, unspecified; F31.9 Bipolar disorder, unspecified
CPT/HCPCS: 80053; 83615; 85025; G0463; 36591; 84443; 96413; 96417; 99213

== ENCOUNTER 2021-01-24 09:24 | Outpatient (RCR) | payer MEDICARE, MEDICAID ==
[2021-01-24 09:52] LABS: BASOPHILS % (AUTO) 0 % (0-10); EOSINOPHILS # (AUTO) 0.1 10^3/uL (0.0-0.3); EOSINOPHILS % (AUTO) 1 % (0-10); HEMATOCRIT 42 % (40-54); LYMPHOCYTES # (AUTO) 4.4 10^3/uL (1.0-4.0); LYMPHOCYTES % (AUTO) 41 % (12-44); MEAN CORPUSCULAR HEMOGLOBIN 30 pg (25-34); MEAN CORPUSCULAR HGB CONC 33 g/dL (32-36); MEAN CORPUSCULAR VOLUME 91 fL (80-99); MEAN PLATELET VOLUME 9.5 fL (9.0-12.2); MONOCYTES # (AUTO) 1.1 10^3/uL (0.0-1.0); MONOCYTES % (AUTO) 11 % (0-12); NEUTROPHILS % (AUTO) 47 % (42-75); PLATELET COUNT 197 10^3/uL (130-400); WHITE BLOOD COUNT 10.6 10^3/uL (4.3-11.0)
[2021-01-24 10:34] LABS: ALBUMIN 3.7 GM/DL (3.2-4.5); BILIRUBIN,TOTAL 0.7 MG/DL (0.1-1.0); CALCIUM 9.2 MG/DL (8.5-10.1); CREATININE SERUM 0.94 MG/DL (0.60-1.30); POTASSIUM 2.8 MMOL/L (3.6-5.0); TOTAL PROTEIN 7.9 GM/DL (6.4-8.2)
== END 2021-03-09 | disposition home or self-care (01) ==
LOC: ONC 09:24
PROVIDERS: ATTEND Internal Medicine Hematology & Oncology
DX: D69.6 Thrombocytopenia, unspecified (principal); B19.20 Unspecified viral hepatitis C without hepatic coma; J44.9 Chronic obstructive pulmonary disease, unspecified; F31.9 Bipolar disorder, unspecified; F17.210 Nicotine dependence, cigarettes, uncomplicated; I10 Essential (primary) hypertension; E11.9 Type 2 diabetes mellitus without complications; Z79.899 Other long term (current) drug therapy; Z79.891 Long term (current) use of opiate analgesic; Z86.73 Personal history of transient ischemic attack (TIA), and cerebral infarction without residual deficits; Z85.820 Personal history of malignant melanoma of skin
CPT/HCPCS: 80053; 83615; 84443; 85025; 96413; 96417; G0463; 36591